=== PATIENT | female | born 1935 | race Caucasian/White ===

== ENCOUNTER 2016-03-27 11:20 | Emergency (ER) | payer OTHER, BC ==
[2016-03-27 11:43] VITALS: BP 158/66; PULSE 75; TEMP 98.8; BMI 45.8
--- NOTE | 2016-03-27 12:43 | PDOC ---
[id number] 4d HEADACHE FOR 2 WEEKS Time Seen by Provider: 03/27/16 12:22 - History of Present Illness Initial Comments: Complaint: Headache History of present illness: Patient complains of pain in the left side of her face, in the area of her left islam, for several days. The pain is vague in description, intermittent, and non-debilitating. She has had recent dental work in the upper left. Review of systems: Denies new visual or focal neurologic symptoms, pain with chewing, numbness or tingling in the face or extremities. Chest pain, shortness of breath, abdominal pain, nausea, vomiting, diarrhea, urinary tract symptoms, vaginal bleeding or discharge. Past medical history: Patient is confined to a wheelchair because of old injuries and Parkinson's. She is cared for by her and her sister. According to her sister, there is been no deterioration in her neurological condition. Social/family history: As above Physical exam: Patient is alert and oriented in no acute distress and cooperative Afebrile, vital signs normal Head atraumatic. PERRLA, fundi benign, ENT clear. Specifically, there is no inflammation of the gingiva. The temporal artery is not enlarged or tender to palpation. The TMJ does not appear to be inflamed or located, and the patient can open her mouth fully Neck supple without bruit or mass or nodes Lungs clear CV regular without murmur or gallop Abdomen benign Neurological: C2 to 12 intact. Generalized weakness but no new focal deficits. Patient is not ambulatory, confined to a wheelchair. Extremities no CCE Skin clear, no rash, adequate turgor and wet mucous membranes Impression: Recurrent headaches, intermittent, mild, likely secondary to tension. Plan: Brain CT performed and negative. Preliminary laboratory evaluation with no significant abnormalities other than a moderately elevated ESR. Discussed the judicious use of Tylenol and stress reduction techniques. To follow up with primary physician and consider neurological evaluation. Discussed the elevated sedimentation rate, and the possibility that this could be related to the headaches and possibly result in permanent visual loss is not addressed in a timely fashion. Sister agrees to facilitate timely follow-up. In no significant pain or other distress upon discharge with her sister to follow-up as directed 03/31/16 08:39 Past History - Past Medical History Allergies/Adverse Reactions: Allergies Allergy/AdvReac Type Severity Reaction Status Date / Time pregabalin [From Lyrica] Allergy Verified 04/04/13 13:02 gabapentin [From Neurontin] AdvReac Unknown Verified 04/04/13 13:02 Home Medications: Ambulatory Orders Metoprolol Tartrate [Lopressor -] 50 mg PO BID 05/26/13 Pantoprazole Sodium 40 mg PO DAILY 05/26/13 Sennosides [Senna -] 2 tab PO HS PRN 05/26/13 Venlafaxine HCl ER [Effexor Xr -] 150 mg PO DAILY 05/26/13 Carbidopa/Levodopa 25/100 [Sinemet 25/100 -] 1 each PO TID 03/27/16 Donepezil HCl [Aricept -] 5 mg PO HS 03/27/16 Anemia: No Asthma: No Cancer: No Cardiac Disorders: No CVA: No COPD: No CHF: No Dementia: No Diabetes: No GI Disorders: Yes (CHRONIC CONSTIPATION, REFLUX) Disorders: No HTN: Yes Hypercholesterolemia: No Liver Disease: No Psychiatric Problems: Yes (DEPRESSION) Seizures: No Thyroid Disease: No Lung CA: Yes Other medical history: PARKINSON'S - Surgical History Abdominal Surgery: No Appendectomy: No Cardiac Surgery: No Cholecystectomy: Yes Lung Surgery: No Neurologic Surgery: No Orthopedic Surgery: Yes (FX RIBS, KATE KNEEAND SHOULDER REPLACEMENTS, LEFT HIP REPLACEMENT) - Immunization History Td Vaccination: Yes - Psycho/Social/Smoking Cessation Hx Anxiety: Yes Suicidal Ideation: No Smoking Status: No Smoking History: Never smoked Years of Tobacco Use: 0 Have you smoked in the past 12 months: No Number of Cigarettes Smoked Daily: 0 If you are a former smoker, when did you quit?: 0 Cigars Per Day: 0 Hx Alcohol Use: No Drug/Substance Use Hx: No Substance Use Type: Alcohol Hx Substance Use Treatment: No *Physical Exam - Vital Signs Last Vital Signs Temp Pulse Resp BP Pulse Ox 98.8 F 75 17 158/66 99 03/27/16 11:32 03/27/16 11:32 03/27/16 11:32 03/27/16 11:32 03/27/16 11:32 ED Treatment Course - LABORATORY CBC & Chemistry Diagram: 03/27/16 13:30 03/27/16 13:30 *DC/Admit/Observation/Transfer Diagnosis at time of Disposition: Tension headache - Discharge Dispostion Disposition: HOME Condition at time of disposition: Good Admit: No - Referrals Referrals: Jarod Ozuna MD [Primary Care Provider] - 3 days - Patient Instructions Printed Discharge Instructions: DI for Headache Additional Instructions: If the headaches persist, discuss with your neurologist next visit Drink more fluids to stay hydrated. Tylenol as necessary.
[2016-03-27 13:49] LABS: BASOPHIL 0.2 % (0-2.0); EOSINOPHIL 1.9 % (0-4.5); MCH 26.6 pg (25.7-33.7); MCHC 32.4 g/dl (32.0-36.0); MEAN CELL VOLUME 82.2 fl (80-96); MEAN PLT VOLUME 7.4 fl (7.5-11.1); NEUTROPHILS 72.3 % (42.8-82.8); PLATELET COUNT 283 K/MM3 (134-434); RDW 13.7 % (11.6-15.6); WHITE BLOOD COUNT 10.1 K/mm3 (4.0-10.0)
[2016-03-27 14:02] LABS: ALBUMIN 3.6 g/dl (3.5-5.0); ALK PHOS 79 U/L (32-92); ANION GAP 8 (8-16); BILIRUBIN,TOTAL 0.9 mg/dl (0.2-1.0); CALCIUM 9.2 mg/dl (8.4-10.2); CO2 25 mmol/L (22-28); CREATININE 0.4 mg/dl (0.6-1.3); GLUCOSE,RANDOM 112 mg/dl (74-106); SGOT/AST 22 U/L (10-42); SGPT/ALT 11 U/L (10-40); TOT PROT 6.6 g/dl (6.4-8.3)
[2016-03-27] MEDS ORDERED: ACETAMINOPHEN 325 MG TABLET (FP) ONE (14:54)
[2016-03-27] MEDS ORDERED: ACETAMINOPHEN 325 MG TABLET (FP) PO ONE (15:00)
== END 2016-03-27 15:15 | disposition home or self-care (01) ==
LOC: FER 11:20
DX: G44.209 Tension-type headache, unspecified, not intractable (principal); K59.00 Constipation, unspecified; K21.9 Gastro-esophageal reflux disease without esophagitis; I10 Essential (primary) hypertension; F32.9 Major depressive disorder, single episode, unspecified; Z85.118 Personal history of other malignant neoplasm of bronchus and lung; G20 Parkinson's disease
CPT/HCPCS: 36415; 70450-TC; 80053; 85025; 85651; 99282-25

== ENCOUNTER 2016-06-24 14:41 | Inpatient (IN) | payer OTHER, BC ==
[2016-06-24 14:55] VITALS: BMI 35.2
--- NOTE | 2016-06-24 15:23 | PDOC ---
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 Family states that at baseline the patient is occasionally able to formulate sentences but today she is completely unable. HPI is limited due to patients clinical condition. History retained from family. <Long Bagley - Last Filed: 06/24/16 16:32> <Jacinda Beverly - Last Filed: 06/28/16 22:41> - General Chief Complaint: Altered Mental Status Stated Complaint: Altered Mental Status Time Seen by Provider: 06/24/16 15:12 Past History <Long Bagley - Last Filed: 06/24/16 16:32> - Past Medical History Anemia: No Asthma: No Cancer: No Cardiac Disorders: No CVA: No COPD: No CHF: No Dementia: Yes (PARKINSONS) Diabetes: No GI Disorders: Yes (CHRONIC CONSTIPATION, REFLUX) Disorders: No HTN: Yes Hypercholesterolemia: No Liver Disease: No Psychiatric Problems: Yes (DEPRESSION) Seizures: No Thyroid Disease: No 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") - Surgical History Abdominal Surgery: No Appendectomy: No Cardiac Surgery: No Cholecystectomy: Yes Lung Surgery: No Neurologic Surgery: No Orthopedic Surgery: Yes (FX RIBS, KATE KNEEAND SHOULDER REPLACEMENTS, LEFT HIP REPLACEMENT) - Immunization History Td Vaccination: Yes - Psycho/Social/Smoking Cessation Hx Anxiety: Yes Suicidal Ideation: No Smoking Status: No Smoking History: Never smoked Years of Tobacco Use: 0 Have you smoked in the past 12 months: No Number of Cigarettes Smoked Daily: 0 If you are a former smoker, when did you quit?: 0 Cigars Per Day: 0 Hx Alcohol Use: No Drug/Substance Use Hx: No Substance Use Type: Alcohol Hx Substance Use Treatment: No <Jacinda Beverly - Last Filed: 06/28/16 22:41> - Past Medical History Allergies/Adverse Reactions: Allergies Allergy/AdvReac Type Severity Reaction Status Date / Time pregabalin [From Lyrica] Allergy Verified 06/24/16 14:47 gabapentin [From Neurontin] AdvReac Unknown Verified 06/24/16 14:47 Home Medications: Ambulatory Orders Metoprolol Tartrate [Lopressor -] 50 mg PO BID 05/26/13 Pantoprazole Sodium 40 mg PO DAILY 05/26/13 Venlafaxine HCl ER [Effexor Xr -] 150 mg PO DAILY 05/26/13 Carbidopa/Levodopa 25/100 [Sinemet 25/100 -] 1 each PO TID 03/27/16 Buspirone HCl [Buspar -] 1 tab PO BID 06/24/16 Prednisone [Deltasone -] 1 tab PO DAILY 06/24/16 Quetiapine Fumarate [Seroquel -] 25 mg PO HS 06/24/16 Review of Systems - Review of Systems Able to Perform ROS?: No <Long Bagley - Last Filed: 06/24/16 16:32> *Physical Exam - Vital Signs Last Vital Signs Temp Pulse Resp BP Pulse Ox 98.1 F 81 19 107/50 95 06/24/16 14:48 06/24/16 14:48 06/24/16 14:48 06/24/16 14:48 06/24/16 14:48 <Long Bagley - Last Filed: 06/24/16 16:32> - Vital Signs Last Vital Signs Temp Pulse Resp BP Pulse Ox 98.1 F 81 19 107/50 95 06/24/16 14:48 06/24/16 14:48 06/24/16 14:48 06/24/16 14:48 06/24/16 14:48 - Physical Exam Comments: GENERAL: Awake, mumbling incoherently. Does not answer questions. HEAD: No signs of trauma EYES: PERRLA, EOMI, sclera anicteric, conjunctiva clear ENT: Auricles normal inspection, hearing grossly normal, nares patent, oropharynx clear without exudates. Dry mucosa NECK: Normal ROM, supple, no lymphadenopathy, JVD, or masses LUNGS: Breath sounds equal, clear to auscultation bilaterally. No wheezes, and no crackles HEART: Regular rate and rhythm, normal S1 and S2, no murmurs, rubs or gallops ABDOMEN: Soft, nontender, normoactive bowel sounds. No guarding, no rebound. No masses EXTREMITIES: Normal range of motion, no edema. No clubbing or cyanosis. No cords, erythema, or tenderness NEUROLOGICAL: CLimited by AMS. SKIN: Warm, Dry, normal turgor, no rashes or lesions noted. <Jacinda Beverly - Last Filed: 06/28/16 22:41> Heart Score/ECG Review - ECG Impressions Comment:: EKG read 15:57- afib with RVR 168 bpm <Jacinda Beverly - Last Filed: 06/28/16 22:41> ED Treatment Course - LABORATORY CBC & Chemistry Diagram: 06/28/16 07:45 06/28/16 07:45 <Jacinda Beverly - Last Filed: 06/28/16 22:41> Medical Decision Making - Medical Decision Making 06/24/16 16:[address] Tijerina. Presented with AMS for past few weeks, progressively worsening. She is awake, but incoherent. Protecting her airway. No gross neuro deficits, but unable to cooperate with full exam. AMS workup is pending, IV access was difficult, but was ultimately obtained. Awaiting labs, UA, CTH, CXR for further evaluation. <Jacinda Beverly - Last Filed: 06/28/16 22:41> *DC/Admit/Observation/Transfer - Attestations Scribe Attestion: 06/24/16 15:45 Documentation prepared by Long Bagley, acting as medical delivery technician for Jacinda Beverly MD. <Long Bagley - Last Filed: 06/24/16 16:32> <Jacinda Beverly - Last Filed: 06/28/16 22:41> Diagnosis at time of Disposition: Altered mental status Qualifiers: Altered mental status type: unspecified Qualified Code(s): R41.82 - Altered mental status, unspecified Atrial fibrillation Qualifiers: Atrial fibrillation type: unspecified Qualified Code(s): I48.91 - Unspecified atrial fibrillation ICH (intracerebral hemorrhage) Qualifiers: Intracerebral hemorrhage etiology: nontraumatic Cerebral hemorrhage location: unspecified cerebral location Laterality: unspecified laterality Qualified Code( s): I61.9 - Nontraumatic intracerebral hemorrhage, unspecified UTI (urinary tract infection) Qualifiers: Urinary tract infection type: site unspecified Hematuria presence: without hematuria Qualified Code(s): N39.0 - Urinary tract infection, site not specified - Discharge Dispostion Condition at time of disposition: Guarded - Referrals
[2016-06-24] MEDS ORDERED: dilTIAZem HCL 50 MG/10 ML - 10 ML VIAL IVPUSH ONE ×3 (16:30→17:39)
[2016-06-24] MEDS ORDERED: SODIUM CHLORIDE 1,000 ML IV STA (16:30)
[2016-06-24] MEDS ORDERED: dilTIAZem HCL 125 MG/25 ML - 25 ML VIAL ONE ×2 (16:44→17:54)
[2016-06-24] MEDS ORDERED: METOPROLOL TARTRATE 5 MG/5 ML VIAL IVPUSH ONE (17:15)
[2016-06-24] MEDS ORDERED: METOPROLOL TARTRATE 5 MG/5 ML VIAL ONE (17:17)
[2016-06-24] MEDS ORDERED: SODIUM CHLORIDE 500 ML IV STA ×2 (17:39→19:06)
[2016-06-24 17:52] LABS: MCH 29.2 pg (25.7-33.7); MCHC 34.1 g/dl (32.0-36.0); MEAN CELL VOLUME 85.6 fl (80-96); MEAN PLT VOLUME 9.6 fl (7.5-11.1); PLATELET COUNT 125 K/MM3 (134-434); RDW 18.4 % (11.6-15.6); WHITE BLOOD COUNT 20.5 K/mm3 (4.0-10.0)
[2016-06-24 18:03] LABS: URINE APPEARANCE CLOUDY; URINE COLOR AMBER; URINE GLUCOSE (UA) NEGATIVE (NEGATIVE); URINE KETONE TRACE (NEGATIVE); URINE NITRITE NEGATIVE (NEGATIVE); URINE UROBILINOGEN 4.0 E.U/dl E.U./dl (0.2-1.0)
[2016-06-24 18:07] LABS: INR 1.05 (0.82-1.09); PROTHROMBIN TIME (PATIENT) 11.6 SEC (9.98-11.88)
[2016-06-24 18:17] LABS: URINE BLOOD 2+ (NEGATIVE); URINE PROTEIN 2+ (NEGATIVE)
[2016-06-24 18:18] LABS: URINE LEUK ESTERASE 2+ (NEGATIVE)
[2016-06-24 18:24] LABS: TROPONIN I 0.07 ng/ml (0.00-0.05)
[2016-06-24 18:31] LABS: ALBUMIN 3.4 g/dl (3.4-5.0); BILIRUBIN,TOTAL 2.6 mg/dL (0.2-1.0); CREATININE 1.5 mg/dL (0.55-1.02); TOT PROT 6.2 g/dl (6.4-8.2)
[2016-06-24] MEDS ORDERED: PIPERACILLIN/TAZOB 3.375 GM/50 ML PRE-DOCKED IVPB ONE (19:02)
[2016-06-24] MEDS ORDERED: PIPERACILLIN/TAZOB 3.375 GM 50 ML IVPB ONE (19:23)
[2016-06-24] MEDS ORDERED: levETIRAcetam 500 MG/5 ML INJECTION VIAL IVPB ONE ×2 (21:59→22:11)
--- NOTE | 2016-06-24 22:10 | PDOC ---
*Physical Exam - Vital Signs Last Vital Signs Temp Pulse Resp BP Pulse Ox 98.5 F 93 H 18 120/92 99 06/24/16 21:31 06/24/16 21:31 06/24/16 21:31 06/24/16 21:31 06/24/16 21:31 <Santhosh Tijerina - Last Filed: 06/24/16 22:04> - Vital Signs Last Vital Signs Temp Pulse Resp BP Pulse Ox 98.5 F 84 18 124/99 99 06/24/16 21:31 06/24/16 22:08 06/24/16 22:08 06/24/16 22:08 06/24/16 22:08 <Ashwini Weinstein - Last Filed: 06/24/16 22:18> ED Treatment Course - LABORATORY CBC & Chemistry Diagram: 06/24/16 16:15 06/24/16 16:15 - ADDITIONAL ORDERS Additional order review: Laboratory Results 06/24/16 06/24/16 06/24/16 20:00 16:15 16:15 INR Sodium Potassium Chloride Carbon Dioxide Anion Gap BUN Creatinine Creat Clearance w eGFR Random Glucose Lactic Acid 3.643 H* Calcium Total Bilirubin AST ALT Alkaline Phosphatase Creatine Kinase Troponin I Total Protein Albumin TSH 2.43 D Urine Color [place] Urine Appearance Cloudy Urine pH 5.0 Ur Specific [place] 1.019 Urine Protein 2+ H Urine Glucose (UA) Negative Urine Ketones Trace H Urine Blood 2+ H Urine Nitrite Negative Urine Bilirubin 2.0 Urine Urobilinogen 4.0 e.u/dl H Ur Leukocyte Esterase 2+ H 06/24/16 06/24/16 06/24/16 16:15 16:15 16:15 INR 1.05 Sodium 140 Potassium 3.6 Chloride 99 Carbon Dioxide 27 Anion Gap 14 BUN 29 H D Creatinine 1.5 H D Creat Clearance w eGFR 33.41 Random Glucose 158 H D Lactic Acid 3.814 H* Calcium 9.0 Total Bilirubin 2.6 H D AST 13 L D ALT 24 Alkaline Phosphatase 76 Creatine Kinase 67 Troponin I 0.07 H Total Protein 6.2 L Albumin 3.4 TSH Urine Color Urine Appearance Urine pH Ur Specific [place] Urine Protein Urine Glucose (UA) Urine Ketones Urine Blood Urine Nitrite Urine Bilirubin Urine Urobilinogen Ur Leukocyte Esterase 06/24/16 16:15 RBC 4.52 MCV 85.6 MCHC 34.1 RDW 18.4 H D MPV 9.6 D Neutrophils % Y Lymphocytes % Y - Medications Given in the ED: ED Medications Discontinued Medications Generic Name Dose Route Start Last Admin Trade Name Yemi PRN Reason Stop Dose Admin Diltiazem HCl 10 mg 06/24/16 16:30 06/24/16 16:45 Cardizem Injection - IVPUSH 06/24/16 16:31 10 mg ONCE ONE Administration Diltiazem HCl 10 mg 06/24/16 16:47 06/24/16 16:55 Cardizem Injection - IVPUSH 06/24/16 16:48 10 mg ONCE ONE Administration Diltiazem HCl 10 mg 06/24/16 17:39 06/24/16 19:11 Cardizem Injection - IVPUSH 06/24/16 17:40 Not Given ONCE ONE Sodium Chloride 1,000 mls @ 1,000 mls/hr 06/24/16 16:30 06/24/16 16:30 Normal Saline - IV 06/24/16 17:29 1,000 mls/hr ASDIR STA Administration Sodium Chloride 500 mls @ 500 mls/hr 06/24/16 17:39 06/24/16 17:50 Normal Saline - IV 06/24/16 18:38 500 mls/hr ASDIR STA Administration Sodium Chloride 500 mls @ 500 mls/hr 06/24/16 19:06 06/24/16 19:30 Normal Saline - IV 06/24/16 20:05 500 mls/hr ASDIR STA Administration Metoprolol Tartrate 5 mg 06/24/16 17:15 06/24/16 17:18 Lopressor Injection - IVPUSH 06/24/16 17:16 5 mg ONCE ONE Administration Piperacillin Sod/Tazobactam Sod 3.375 gm 06/24/16 19:02 06/24/16 19:25 Zosyn 3.375gm Ivpb (Pre-Docked) IVPB 06/24/16 19:03 3.375 gm ONCE ONE Administration Protocol <Santhosh Tijerina - Last Filed: 06/24/16 22:04> - LABORATORY CBC & Chemistry Diagram: 06/24/16 16:15 06/24/16 16:15 - ADDITIONAL ORDERS Additional order review: Laboratory Results 06/24/16 06/24/16 06/24/16 20:00 16:15 16:15 INR Sodium Potassium Chloride Carbon Dioxide Anion Gap BUN Creatinine Creat Clearance w eGFR Random Glucose Lactic Acid 3.643 H* Calcium Total Bilirubin AST ALT Alkaline Phosphatase Creatine Kinase Troponin I Total Protein Albumin TSH 2.43 D Urine Color [place] Urine Appearance Cloudy Urine pH 5.0 Ur Specific [place] 1.019 Urine Protein 2+ H Urine Glucose (UA) Negative Urine Ketones Trace H Urine Blood 2+ H Urine Nitrite Negative Urine Bilirubin 2.0 Urine Urobilinogen 4.0 e.u/dl H Ur Leukocyte Esterase 2+ H 06/24/16 06/24/16 06/24/16 16:15 16:15 16:15 INR 1.05 Sodium 140 Potassium 3.6 Chloride 99 Carbon Dioxide 27 Anion Gap 14 BUN 29 H D Creatinine 1.5 H D Creat Clearance w eGFR 33.41 Random Glucose 158 H D Lactic Acid 3.814 H* Calcium 9.0 Total Bilirubin 2.6 H D AST 13 L D ALT 24 Alkaline Phosphatase 76 Creatine Kinase 67 Troponin I 0.07 H Total Protein 6.2 L Albumin 3.4 TSH Urine Color Urine Appearance Urine pH Ur Specific [place] Urine Protein Urine Glucose (UA) Urine Ketones Urine Blood Urine Nitrite Urine Bilirubin Urine Urobilinogen Ur Leukocyte Esterase 06/24/16 16:15 RBC 4.52 MCV 85.6 MCHC 34.1 RDW 18.4 H D MPV 9.6 D Neutrophils % Y Lymphocytes % Y - Medications Given in the ED: ED Medications Discontinued Medications Generic Name Dose Route Start Last Admin Trade Name Freq PRN Reason Stop Dose Admin Diltiazem HCl 10 mg 06/24/16 16:30 06/24/16 16:45 Cardizem Injection - IVPUSH 06/24/16 16:31 10 mg ONCE ONE Administration Diltiazem HCl 10 mg 06/24/16 16:47 06/24/16 16:55 Cardizem Injection - IVPUSH 06/24/16 16:48 10 mg ONCE ONE Administration Diltiazem HCl 10 mg 06/24/16 17:39 06/24/16 19:11 Cardizem Injection - IVPUSH 06/24/16 17:40 Not Given ONCE ONE Sodium Chloride 1,000 mls @ 1,000 mls/hr 06/24/16 16:30 06/24/16 16:30 Normal Saline - IV 06/24/16 17:29 1,000 mls/hr ASDIR STA Administration Sodium Chloride 500 mls @ 500 mls/hr 06/24/16 17:39 06/24/16 17:50 Normal Saline - IV 06/24/16 18:38 500 mls/hr ASDIR STA Administration Sodium Chloride 500 mls @ 500 mls/hr 06/24/16 19:06 06/24/16 19:30 Normal Saline - IV 06/24/16 20:05 500 mls/hr ASDIR STA Administration Metoprolol Tartrate 5 mg 06/24/16 17:15 06/24/16 17:18 Lopressor Injection - IVPUSH 06/24/16 17:16 5 mg ONCE ONE Administration Piperacillin Sod/Tazobactam Sod 3.375 gm 06/24/16 19:02 06/24/16 19:25 Zosyn 3.375gm Ivpb (Pre-Docked) IVPB 06/24/16 19:03 3.375 gm ONCE ONE Administration Protocol <Ashwini Weinstein - Last Filed: 06/24/16 22:18> Medical Decision Making - Medical Decision Making 06/24/16 22:04 Sign-out received from outgoing Emergency Physician Dr. Beverly Pt interviewed and examined Ancillary studies reviewed Case discussed in detail with oncoming Emergency Physician including history, physical exam and ancillary studies. CBC, BMP 06/24/16 16:15 06/24/16 16:15 CMP Sodium 140 mmol/L (136-145) 06/24/16 16:15 Potassium 3.6 mmol/L (3.5-5.1) 06/24/16 16:15 Chloride 99 mmol/L (98-107) 06/24/16 16:15 Carbon Dioxide 27 mmol/L (21-32) 06/24/16 16:15 Anion Gap 14 (8-16) 06/24/16 16:15 BUN 29 mg/dL (7-18) H D 06/24/16 16:15 Creatinine 1.5 mg/dL (0.55-1.02) H D 06/24/16 16:15 Creat Clearance w eGFR 33.41 (>60) 06/24/16 16:15 Random Glucose 158 mg/dL (74-106) H D 06/24/16 16:15 Lactic Acid 3.643 mmol/L (0.4-2.0) H* 06/24/16 20:00 Calcium 9.0 mg/dL (8.5-10.1) 06/24/16 16:15 Total Bilirubin 2.6 mg/dL (0.2-1.0) H D 06/24/16 16:15 AST 13 U/L (15-37) L D 06/24/16 16:15 ALT 24 U/L (12-78) 06/24/16 16:15 Alkaline Phosphatase 76 U/L (45-117) 06/24/16 16:15 Creatine Kinase 67 IU/L (26-192) 06/24/16 16:15 Troponin I 0.07 ng/ml (0.00-0.05) H 06/24/16 16:15 Total Protein 6.2 g/dl (6.4-8.2) L 06/24/16 16:15 Albumin 3.4 g/dl (3.4-5.0) 06/24/16 16:15 TSH 2.43 uIU/ml (0.358-3.74) D 06/24/16 16:15 Urine Test Results Urine Color [place] 06/24/16 16:15 Urine Appearance Cloudy 06/24/16 16:15 Urine pH 5.0 (5.0-8.0) 06/24/16 16:15 Ur Specific [place] 1.019 (1.001-1.035) 06/24/16 16:15 Urine Protein 2+ (NEGATIVE) H 06/24/16 16:15 Urine Glucose (UA) Negative (NEGATIVE) 06/24/16 16:15 Urine Ketones Trace (NEGATIVE) H 06/24/16 16:15 Urine Blood 2+ (NEGATIVE) H 06/24/16 16:15 Urine Nitrite Negative (NEGATIVE) 06/24/16 16:15 Urine Bilirubin 2.0 (NEGATIVE) 06/24/16 16:15 Ur Leukocyte Esterase 2+ (NEGATIVE) H 06/24/16 16:15 When I had received signout at ~ 5pm, the patient continued to have persistent afib RVR. A dose of IV lopressor was given with minimal effects. Another dose of IV diltiazem was given and the heart rate improved < 100. The pt was given IVF when noted to be hypotensive to 80s to 90s systolic, likely 2/2 medications. Labs reviewed. Elevated WBC with acute renal insufficiency and UTI. Zosyn ordered. Troponin is likely demand ischemia. Head CT reviewed and demonstrated a small subacute/acute hemorrhage in the right temporal lobe. Case was discussed with Dr. Vinson. She will follow as inpatient. Case discussed with Dr. Jonah Gaston (neurosurgery). Recommends IV keppra and control systolics to less than 160s. This was discussed with patient's sister, Romeo (her HCP). She is aware of these findings and states that if the patient needed brain surgery, she would not want that for her. At this time, any other further intervention will be discussed case by case. States that the patient has not been formally diagnosed with afib and does not take anticoagulants. Case discussed with ICU ACCOUNT EXECUTIVE SALES REPRESENTATIVE Bianka who accepts the case. Case discussed with Dr. Rivera who accepts the patient to the ICU. <Santhosh Tijerina - Last Filed: 06/24/16 22:04> - Critical Care Time Total Critical Care Time (minutes): 60 Critical Care Statement: The care of this patient involved high complexity decision making to prevent further life threatening deterioration of the patient 's condition and/or to evalute & treat vital organ system(s) failure or risk of failure. - Medical Decision Making 06/24/16 22:14 Health Care Proxy: Rashida Green Relationship to Patient: Sister Cell <Ashwini Weinstein - Last Filed: 06/24/16 22:18> *DC/Admit/Observation/Transfer - Discharge Dispostion Admit: Yes <Santhosh Tijerina - Last Filed: 06/24/16 22:04> - Attestations Scribe Attestion: 06/24/16 22:14 Documentation prepared by Ashwini Weinstein, acting as medical stenographer for Santhosh Tijerina MD. <Ashwini Weinstein - Last Filed: 06/24/16 22:18> Diagnosis at time of Disposition: Altered mental status Qualifiers: Altered mental status type: unspecified Qualified Code(s): R41.82 - Altered mental status, unspecified Atrial fibrillation Qualifiers: Atrial fibrillation type: unspecified Qualified Code(s): I48.91 - Unspecified atrial fibrillation ICH (intracerebral hemorrhage) Qualifiers: Intracerebral hemorrhage etiology: nontraumatic Cerebral hemorrhage location: unspecified cerebral location UTI (urinary tract infection) Qualifiers: Urinary tract infection type: site unspecified Hematuria presence: without hematuria Qualified Code(s): N39.0 - Urinary tract infection, site not specified - Discharge Dispostion Condition at time of disposition: Guarded - Referrals Referrals: Jarod Ozuna MD [Primary Care Provider] - - Patient Instructions - Post Discharge Activity
[2016-06-25 00:14] LABS: URINE BACTERIA MODERATE /hpf (NONE SEEN); URINE HYALINE CAST 12 /lpf; URINE MUCUS RARE; URINE RBC 29 /hpf (0-3); URINE WBC 694 /hpf (3-5)
[2016-06-25] MEDS ORDERED: SODIUM CHLORIDE 1,000 ML IV STA (01:19)
[2016-06-25] MEDS ORDERED: dilTIAZem HCL 50 MG/10 ML - 10 ML VIAL IVPUSH ONE (01:36)
--- NOTE | 2016-06-25 01:43 | CONSULT ---
Consult Consult Specialty:: Pulm/CCM Reason for Consultation:: AMS - History of Present Illness Chief Complaint: AMS History of Present Illness: The patient is a 80 year old female, accompanied by family, with pmh of parkinsons, hypertension, bilateral hip replacements and left knee replacement , who presents to the ED with altered mental status x 1 day. Family states that pt normally is able to speak phrases but now is non verbal. CT head shows possible Rt temporal acute/subacute hemorrhage. CXR shows BENTON yordy mass that has increased in size. Notable labs WBC 20.5, lact 3.8, creat 1.5 (b/l 0.4) and trop 0.07. In the ED went into A-fib with RVR to 150's. Given multiple doses of Diltiazem and Lopressor. BP dropped to 90's/60's. 1.5L fluid bolus given. She was arguello cultured and started on Zosyn for WBC 694 and +leuks in UA. Neurology and neuro surgery consulted and recommended observation and keppraIV for high risk of seizures re location of bleed. She was transferred to ICU for further management. In ICU received in A-fib with RVR up to 170's, BP 107/60, T 98.1F. Diltiazem 15mg IVP given with minimal results. Amio 150mg bolus given. HR back to NSR 60' s. Zosyn and Keppra continued. 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 Cardio/Vascular: Yes: HTN, Other (Unclear if A-fib) Pulmonary: Yes: Other (Lung mass) Gastrointestinal: Yes: GERD Heme/Onc: Yes: Other (Lung Mass) Psych: Yes: Depression Musculoskeletal: Yes: Other (Knee and hip replacements) - Past Surgical History Past Surgical History: Yes: Joint Replacement - Alcohol/Substance Use Hx Alcohol Use: No - Smoking History Smoking history: Never smoked Have you smoked in the past 12 months: No Aproximately how many cigarettes per day: 0 If you are a former smoker, when did you quit?: 0 - Social History Usual Living Arrangement: Other Home Medications - Allergies Allergies/Adverse Reactions: Allergies Allergy/AdvReac Type Severity Reaction Status Date / Time pregabalin [From Lyrica] Allergy Verified 06/24/16 14:47 gabapentin [From Neurontin] AdvReac Unknown Verified 06/24/16 14:47 - Home Medications Home Medications: Ambulatory Orders Metoprolol Tartrate [Lopressor -] 50 mg PO BID 05/26/13 Pantoprazole Sodium 40 mg PO DAILY 05/26/13 Venlafaxine HCl ER [Effexor Xr -] 150 mg PO DAILY 05/26/13 Carbidopa/Levodopa 25/100 [Sinemet 25/100 -] 1 each PO TID 03/27/16 Buspirone HCl [Buspar -] 1 tab PO BID 06/24/16 Prednisone [Deltasone -] 1 tab PO DAILY 06/24/16 Quetiapine Fumarate [Seroquel -] 25 mg PO HS 06/24/16 Family Disease History - Family Disease History Family History: Unable to Obtain Review of Systems Unable to obtain ROS, reason: Verbally unresponsive Physical Exam Vital Signs: Vital Signs Temperature 98.4 F 06/24/16 22:40 Pulse Rate 78 06/25/16 00:05 Respiratory Rate 18 06/25/16 00:05 Blood Pressure 131/93 06/25/16 00:05 O2 Sat by Pulse Oximetry (%) 98 06/25/16 00:05 Constitutional: Yes: No Distress, Obese Eyes: Yes: Conjunctiva Clear, PERRL HENT: Yes: Atraumatic, Normocephalic Neck: Yes: Supple Cardiovascular: Yes: Tachycardia (A fib with RVR) Respiratory: Yes: CTA Bilaterally, On Nasal O2 Gastrointestinal: Yes: Normal Bowel Sounds, Soft ...Rectal Exam: Yes: Deferred Renal/: Yes: Incontinence Musculoskeletal: Yes: Joint Stiffness (Multiple surgical scars; decreased ROM on BLE) Extremities: Yes: Cool Edema: LUE: 1+, RUE: 1+, LLE: 2+, RLE: 2+ Peripheral Pulses WNL: Yes Neurological: Yes: Unresponsive (no verbal response, moaning, resisting) ...Motor Strength: WNL, LUE, RUE Psychiatric: Yes: Other (no verbal response) Labs: CMP Sodium 140 mmol/L (136-145) 06/24/16 16:15 Potassium 3.6 mmol/L (3.5-5.1) 06/24/16 16:15 Chloride 99 mmol/L (98-107) 06/24/16 16:15 Carbon Dioxide 27 mmol/L (21-32) 06/24/16 16:15 Anion Gap 14 (8-16) 06/24/16 16:15 BUN 29 mg/dL (7-18) H D 06/24/16 16:15 Creatinine 1.5 mg/dL (0.55-1.02) H D 06/24/16 16:15 Creat Clearance w eGFR 33.41 (>60) 06/24/16 16:15 Random Glucose 158 mg/dL (74-106) H D 06/24/16 16:15 Lactic Acid 3.643 mmol/L (0.4-2.0) H* 06/24/16 20:00 Calcium 9.0 mg/dL (8.5-10.1) 06/24/16 16:15 Total Bilirubin 2.6 mg/dL (0.2-1.0) H D 06/24/16 16:15 AST 13 U/L (15-37) L D 06/24/16 16:15 ALT 24 U/L (12-78) 06/24/16 16:15 Alkaline Phosphatase 76 U/L (45-117) 06/24/16 16:15 Creatine Kinase 67 IU/L (26-192) 06/24/16 16:15 Troponin I 0.07 ng/ml (0.00-0.05) H 06/24/16 16:15 Total Protein 6.2 g/dl (6.4-8.2) L 06/24/16 16:15 Albumin 3.4 g/dl (3.4-5.0) 06/24/16 16:15 TSH 2.43 uIU/ml (0.358-3.74) D 06/24/16 16:15 CBC WBC 20.5 K/mm3 (4.0-10.0) H D 06/24/16 16:15 RBC 4.52 M/mm3 (3.60-5.2) 06/24/16 16:15 Hgb 13.2 GM/dL (10.7-15.3) 06/24/16 16:15 Hct 38.7 % (32.4-45.2) 06/24/16 16:15 MCV 85.6 fl (80-96) 06/24/16 16:15 MCHC 34.1 g/dl (32.0-36.0) 06/24/16 16:15 RDW 18.4 % (11.6-15.6) H D 06/24/16 16:15 Plt Count 125 K/MM3 (134-434) L D 06/24/16 16:15 MPV 9.6 fl (7.5-11.1) D 06/24/16 16:15 Neutrophils % 84.0 % (42.8-82.8) H 06/24/16 16:15 Lymphocytes % 10.0 % (8-40) D 06/24/16 16:15 Monocytes % 6.0 % (3.8-10.2) 06/24/16 16:15 Current Medications Generic Name Dose Route Start Last Admin Trade Name Freq PRN Reason Stop Dose Admin Chlorhexidine Gluconate 1 applic 06/25/16 22:00 Hibiclens For Decolonization - TP HS ERIN Heparin Sodium (Porcine) 5,000 unit 06/25/16 01:30 Heparin - SQ Q8H-IV ERIN Mupirocin 1 applic 06/25/16 10:00 Bactroban Ointment (For Decolonization) - NS 06/30/16 09:59 BID ERIN Pantoprazole Sodium 40 mg 06/25/16 10:00 Protonix - NR DAILY ERIN Active Medications Chlorhexidine Gluconate (Hibiclens For Decolonization -) 1 applic TP HS ERIN Heparin Sodium (Porcine) (Heparin -) 5,000 unit SQ Q8H-IV ERIN Last Admin: 06/25/16 02:23 Dose: 5,000 unit Amiodarone HCl 450 mg/ (Dextrose) 250 mls @ 16.66 mls/hr IVPB TITR ERIN; 0.5 MG/ MIN PRN Reason: Protocol Last Admin: 06/25/16 03:19 Dose: Not Given Pantoprazole Sodium (Protonix 40mg Ivpb (Pre-Docked)) 100 mls @ 200 mls/hr IVPB ONCE ONE Stop: 06/25/16 03:50 Last Admin: 06/25/16 03:24 Dose: 200 mls/hr Levetiracetam (Keppra Injection -) 750 mg IVPB BID ERIN Mupirocin (Bactroban Ointment (For Decolonization) -) 1 applic NS BID ERIN Stop: 06/30/16 09:59 Imaging - Results Chest X-ray: Report Reviewed (BENT[place] mass increased in size, now 9.8 cm (5.4)) Cat Scan: Report Reviewed (Head CT with rt temporal lobe 2cm attenuation c/w acute/subacute hemorrhage. No gross mass lesion or acute infarct identified) Problem List - Problems (1) Altered mental status Code(s): R41.82 - ALTERED MENTAL STATUS, UNSPECIFIED Qualifiers: Altered mental status type: unspecified Qualified Code(s): R41.82 - Altered mental status, unspecified (2) Atrial fibrillation Code(s): I48.91 - UNSPECIFIED ATRIAL FIBRILLATION Qualifiers: Atrial fibrillation type: unspecified Qualified Code(s): I48.91 - Unspecified atrial fibrillation (3) ICH (intracerebral hemorrhage) Code(s): I61.9 - NONTRAUMATIC INTRACEREBRAL HEMORRHAGE, UNSPECIFIED Qualifiers : Intracerebral hemorrhage etiology: nontraumatic Cerebral hemorrhage location: unspecified cerebral location (4) UTI (urinary tract infection) Code(s): N39.0 - URINARY TRACT INFECTION, SITE NOT SPECIFIED Qualifiers: Urinary tract infection type: site unspecified Hematuria presence: without hematuria Qualified Code(s): N39.0 - Urinary tract infection, site not specified Assessment/Plan The patient is a 80 year old female, accompanied by family, with pmh of parkinsons, hypertension, bilateral hip replacements and left knee replacement , who presents to the ED with urosepsis. Has history of UTI with ESBL E-coli in 07/10. Found to have a possible rt temporal acute/subacute hemorrhage of unclear etiology re no evidence of trauma. No mass effect or acute infarct noted on CT. Also with A-fib with RVR now rate controlled with amio. ID: Sepsis e/b AMS, lactate 3.8, WBC 20, likely source urine; hx ESBL E-coli -ID consult -Continue Zosyn IV -Tailor antibiotics to cxl -trend lactate -trend WBC Neuro: AMS in setting of sepsis, unknown effect and etiology of rt temporal bleed -Neuro consult appreciate recs -Keppra 750mg q12 -neuro checks -f/u with family re baseline CV: Sepsis, A-fib with RVR rate controlled with amio bolus, demand ischemia trop 0.07 -HD monitor -Fluid bolus as needed -Jamil if needed for MAP>60 -Continue amio load as needed for HR rate control -Trend trop -ECG -TTE RACHEAL: in setting of sepsis -Monitor BMP and UOP -Urine studies -Fluid bolus -Renal dose meds Pulm: BENTON lung mass, resp status stabe -O2 support for O2 sat>95 -Aspiration precaution GI: NPO for now re AMS Proph: Hep SQ/ PPI
[2016-06-25] MEDS: HEPARIN NA (PORCINE) 5,000 UNITS/ML 1ML VIAL SQ SCH ×4 (02:23→18:34)
[2016-06-25] MEDS ORDERED: AMIODARONE HCL 150 MG/3 ML VIAL IVPB ONE (02:35)
[2016-06-25] MEDS ORDERED: AMIODARONE HCL INJECTION 150 MG in DEXTROSE 5%-WATER - 97 ML IVPB ONE (02:36)
[2016-06-25] MEDS ORDERED: AMIODARONE HCL 150 MG/3 ML VIAL ONE ×2 (02:38→11:39)
[2016-06-25] MEDS ORDERED: PIPERACILLIN/TAZOB 3.375 GM/50 ML PRE-DOCKED IVPB ONE (02:40)
[2016-06-25] MEDS: AMIODARONE HCL INJECTION 450 MG in DEXTROSE 5%-WATER - 241 ML IVPB SCH ×3 (03:19→12:36)
[2016-06-25] MEDS ORDERED: PANTOPRAZOLE SODIUM 100 ML IVPB ONE (03:21)
[2016-06-25 03:31] LABS: MCH 28.7 pg (25.7-33.7); MCHC 33.7 g/dl (32.0-36.0); MEAN PLT VOLUME 8.9 fl (7.5-11.1); PLATELET COUNT 104 K/MM3 (134-434); RDW 18.1 % (11.6-15.6); WHITE BLOOD COUNT 15.4 K/mm3 (4.0-10.0)
[2016-06-25 03:54] LABS: ALBUMIN 2.3 g/dl (3.4-5.0); ANION GAP 11 (8-16); BILIRUBIN,TOTAL 1.8 mg/dL (0.2-1.0); CALCIUM 7.3 mg/dL (8.5-10.1); CO2 25 mmol/L (21-32); CREATININE 0.9 mg/dL (0.55-1.02); GLUCOSE,RANDOM 108 mg/dL (74-106); SGOT/AST 13 U/L (15-37); SGPT/ALT 7 U/L (12-78)
[2016-06-25 03:57] LABS: ALK PHOS 53 U/L (45-117); TOT PROT 4.3 g/dl (6.4-8.2); TROPONIN I 0.07 ng/ml (0.00-0.05)
[2016-06-25] MEDS: KCL 10 MEQ IVPB 100 ML IVPB SCH ×6 (04:23→21:00)
--- NOTE | 2016-06-25 09:36 | PN ---
Progress Note (short form) - Note Progress Note: NEUROSURGERY CONSULT DICTATED Chart reviewed Care d/w Dr Tijerina yesterday evening H/o Parkinsons, hypertension, bilateral hip replacements/left knee replacement , found with altered mental status x 1 day. Family reported pt has not spoken x [address] head shows possible Rt temporal acute/subacute hemorrhage. CXR shows BENT[place] mass. Found to be in A-fib PE: AF, VSS HEENT- NC/AT; Neck- supple; Cor- Irreg; Chest- decreased BS at bases; Abd- obese , benign; Ext- mild LE edema B NEURO- Eyes closed, arousable;occasional follows simple commands CN- PEERL; face symm; Motor- 4/5 B UE except L DF 2-3, increased tone B UE > LE ; Sensation- unable to fully assess; DTR- hyporefelxic WBC 20.5 now 15.4; INR 1.05, Ptt 28.1; lactic acid 3.814 initially; urine wbc 694 Blood and urine culture pending Head CT- (): moderate atrophy and periventricular small vessel dz Head CT -(06-24-2016): acute-subacute R temporal periventricular ICH 1.5 x 1.8 cm Acute-subacute (5-7 days out) embolic hemorrhagic stroke in face of AFib; UTI/ urosepsis No neurosurgical intervention indicated Cont Keppra for sz prophylaxis Hold AC/NSAIDS F/U non-contrast Head CT tomorrow am to ascertain stability Treat underlying ID issues and cardiac rhythm abnormality
[2016-06-25] MEDS ORDERED: PANTOPRAZOLE 40 MG TABLET (FP) NR SCH (10:00)
[2016-06-25] MEDS ORDERED: levETIRAcetam 500 MG/5 ML INJECTION VIAL IVPB SCH (10:00)
--- NOTE | 2016-06-25 10:50 | PN ---
Progress Note (short form) - Note Progress Note: ID consult dictated imp/reccd 80 year old female with Parkinsons disease, lung mass, admitted with change in MS- at baseline occasionally speaks, yesterday was not talking brought to ED found to have elevated lactic acid, WBC 20K, head ct with bleed right temporal lobe, cxray with enlarging lung mass asked to see for UTI started on keppra for seizure prophylaxis suggest continuing zosyn at this time for UTI, started last night, wbc decreasing, no fevers, hemodynamically stable would like to avoid carbapenems if possible given recent bleed and risk of seizures history of ESBL ECOLI UTI- contact isolation lung mass- biopsy positive melanoma parkinsons diseease/dementia Problem List - Problems (1) ICH (intracerebral hemorrhage) Code(s): I61.9 - NONTRAUMATIC INTRACEREBRAL HEMORRHAGE, UNSPECIFIED Qualifiers : Intracerebral hemorrhage etiology: nontraumatic Cerebral hemorrhage location: unspecified cerebral location (2) UTI (urinary tract infection) Code(s): N39.0 - URINARY TRACT INFECTION, SITE NOT SPECIFIED Qualifiers: Urinary tract infection type: site unspecified Hematuria presence: without hematuria Qualified Code(s): N39.0 - Urinary tract infection, site not specified (3) Lung mass Code(s): R91.8 - OTHER NONSPECIFIC ABNORMAL FINDING OF LUNG FIELD
[2016-06-25] MEDS: MUPIROCIN 2% TOPICAL OINTMENT FOR DECOLONIZATION NS SCH ×2 (11:21→22:00)
[2016-06-25] MEDS: PIPERACILLIN/TAZOB 3.375 GM/50 ML PRE-DOCKED IVPB SCH ×2 (11:24→18:35)
[2016-06-25] MEDS: levETIRAcetam 500 MG/5 ML INJECTION VIAL IVPB SCH ×2 (11:25→21:33)
--- NOTE | 2016-06-25 12:26 | EKG ---
Test Reason : Blood Pressure : / mmHG Vent. Rate : 168 BPM Atrial Rate : 182 BPM P-R Int : 000 ms QRS Dur : 096 ms QT Int : 264 ms P-R-T Axes : 000 -06 189 degrees QTc Int : 441 ms ATRIAL FIBRILLATION WITH RAPID VENTRICULAR RESPONSE WITH PREMATURE VENTRICULAR OR ABERRANTLY CONDUCTED COMPLEXES MARKED ST ABNORMALITY, POSSIBLE INFEROLATERAL SUBENDOCARDIAL INJURY ABNORMAL ECG WHEN COMPARED WITH ECG OF 04-APR-2013 12:49, ATRIAL FIBRILLATION HAS REPLACED SINUS RHYTHM VENT. RATE HAS INCREASED BY [address] NOW DEPRESSED IN INFERIOR LEADS ST NOW DEPRESSED IN ANTEROLATERAL LEADS T WAVE INVERSION NOW EVIDENT IN INFERIOR LEADS T WAVE INVERSION NOW EVIDENT IN ANTEROLATERAL LEADS Confirmed by DORINA OJEDA MD ([id number]) on 06/25/2016 12:25:57 PM Referred By: Confirmed By:DORINA OJEDA MD
--- NOTE | 2016-06-25 12:28 | EKG ---
Test Reason : Blood Pressure : / mmHG Vent. Rate : 074 BPM Atrial Rate : 074 BPM P-R Int : 132 ms QRS Dur : 082 ms QT Int : 380 ms P-R-T Axes : 006 -09 160 degrees QTc Int : 421 ms NORMAL SINUS RHYTHM ABNORMAL ECG WHEN COMPARED WITH ECG OF 24-JUN-2016 15:54, SINUS RHYTHM HAS REPLACED ATRIAL FIBRILLATION VENT. RATE HAS DECREASED BY [address] NO LONGER DEPRESSED IN INFERIOR LEADS ST NO LONGER DEPRESSED IN LATERAL LEADS Confirmed by DORINA OJEDA MD ([id number]) on 06/25/2016 12:28:13 PM Referred By: Confirmed By:DORINA OJEDA MD
--- NOTE | 2016-06-25 13:28 | CONSULT ---
Consult Consult Specialty:: Neurology Reason for Consultation:: ICH - History of Present Illness Chief Complaint: Altered mental status History of Present Illness: 80 year old woman, history of parkinsons disease, hypertension, bilateral hip replacement, presented to ED for altered mental status for one day. On arrival, u/a+ with leukocytosis, increased lactic acid, enlarging lung mass, and atrial fibrillation noted. CT head showed evidence of right temporal acute/subacute hemorrhage. Neurology and Neurosurgery consulted for findings. As per neurosurgery, no acute intervention. Recommend blood pressure control and keppra for seizure prophylaxis. On exam is awake, alert, able to follow simple commands (stick out your tongue) , but not complex commands. Remainder of exam grossly non focal. 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 Cardio/Vascular: Yes: HTN, Other (Unclear if A-fib) Pulmonary: Yes: Other (Lung mass) Gastrointestinal: Yes: GERD Psych: Yes: Depression Musculoskeletal: Yes: Other (Knee and hip replacements) - Past Surgical History Past Surgical History: Yes: Joint Replacement - Alcohol/Substance Use Hx Alcohol Use: No - Smoking History Smoking history: Never smoked Have you smoked in the past 12 months: No Aproximately how many cigarettes per day: 0 If you are a former smoker, when did you quit?: 0 - Social History Usual Living Arrangement: Other Home Medications - Allergies Allergies/Adverse Reactions: Allergies Allergy/AdvReac Type Severity Reaction Status Date / Time pregabalin [From Lyrica] Allergy Verified 06/24/16 14:47 gabapentin [From Neurontin] AdvReac Unknown Verified 06/24/16 14:47 - Home Medications Home Medications: Ambulatory Orders Metoprolol Tartrate [Lopressor -] 50 mg PO BID 05/26/13 Pantoprazole Sodium 40 mg PO DAILY 05/26/13 Venlafaxine HCl ER [Effexor Xr -] 150 mg PO DAILY 05/26/13 Carbidopa/Levodopa 25/100 [Sinemet 25/100 -] 1 each PO TID 03/27/16 Buspirone HCl [Buspar -] 1 tab PO BID 06/24/16 Prednisone [Deltasone -] 1 tab PO DAILY 06/24/16 Quetiapine Fumarate [Seroquel -] 25 mg PO HS 06/24/16 Family Disease History - Family Disease History Family History: Unable to Obtain Review of Systems Unable to obtain ROS, reason: due to mental status Physical Exam Vital Signs: Vital Signs Temperature 98.2 F 06/25/16 10:00 Pulse Rate 62 06/25/16 12:00 Respiratory Rate 14 06/25/16 12:00 Blood Pressure 130/65 06/25/16 12:00 O2 Sat by Pulse Oximetry (%) 100 06/25/16 13:07 Constitutional: Yes: No Distress Eyes: Yes: Conjunctiva Clear, EOM Intact HENT: Yes: Atraumatic, Normocephalic Cardiovascular: Yes: S1, S2 Neurological: Yes: Cran Nerves II-XII Intact, Other (awake, alert, sticks out tongue to command, does not follow complex commands blinks to visual threat bilaterally no obvious facial droop moving all extremities spontaneously without any obvious focal deficits) Labs: CBC, BMP 06/25/16 02:45 06/25/16 02:45 Assessment/Plan 80 year old woman, history of parkinsons disease, hypertension, bilateral hip replacement, presented to ED for altered mental status for one day. On arrival, u/a+ with leukocytosis, increased lactic acid, enlarging lung mass, and atrial fibrillation noted. CT head showed evidence of right temporal acute/subacute hemorrhage. Neurology and Neurosurgery consulted for findings. As per neurosurgery, no acute intervention. Recommend blood pressure control and keppra for seizure prophylaxis. On exam is awake, alert, able to follow simple commands (stick out your tongue) , but not complex commands. Remainder of exam grossly non focal. Right temporal lobe hemorrhage CT head consistent with right temporal lobe hemorrhage Neurosurgery consult appreciated, no acute intervention Recommend blood pressure control, SBP less than 160 No anti platelet, or AC Keppra 750 mg BID, seizure prophylaxis Recommend repeat CT head tomorrow am for stability Once medically stable, MRI brain without contrast for further characterization Encephalopathy, likely metabolic Will order EEG to rule out seizure given hemorrhage Will follow ICU critical care time 35 min
--- NOTE | 2016-06-25 13:58 | CONS ---
DATE OF CONSULTATION: 06/25/2016 CHIEF COMPLAINT: Altered mental status with aphasia. HISTORY OF PRESENT ILLNESS: The patient is an 80-year-old female with a history of Parkinson disease, bilateral hip and left knee replacement, hypertension, and left upper lobe mass who was brought to the emergency room for altered mental status and aphasia for approximately 1-days' duration. The patient was found to be in atrial fibrillation. After medication, she became hypotensive. She was found to have a urinary tract infection with possible urosepsis. According to the family, she was conversant at baseline. PAST MEDICAL HISTORY: Significant for osteoarthritis, hypertension, left upper lobe lung mass, gastroesophageal reflux disease, depression, bilateral hip and left knee replacement. CURRENT MEDICATIONS: Included amiodarone, Bactroban, subcutaneous heparin, Keppra, chlorhexidine. ALLERGIES: LYRICA and GABAPENTIN. SOCIAL HISTORY: She was not reported to smoke or drink. She lives at home. REVIEW OF SYSTEMS: Otherwise, negative for other major cardiovascular, pulmonary, gastrointestinal, genitourinary, endocrinologic, neurological, or psychological problems except for the above. She has no reported recent infection and no reported history of cardiac arrhythmia. PHYSICAL EXAMINATION: Vital Signs: Temperature 98.4, blood pressure 103/56, pulse rate 61, O2 saturation 100% on 2 L. HEENT: Normocephalic and atraumatic. Neck: Supple. Coronary: Demonstrates regular rhythm. Lungs: Show decreased breath sounds at the bases. Abdomen: Obese but benign. Extremities: Shows 1+ edema to bilateral lower extremities and upper extremity. There are no pulses. Difficult to fully appreciate. Neurological: She is drowsy but arousable. She does not verbalize other than making sounds. She occasionally obeys simple1-step commands. Cranial nerve examination shows pupils to be equal and reactive. There is no deviation to the pupil. Face appears to be symmetric. She does not follow commands fully to perform a full cranial nerve examination. Motor examination shows at least 4/5-5/5 to bilateral upper and lower extremity except left dorsiflexion, which is 2/5-3/5. Sensory examination is difficult to assess. Deep tendon reflexes are hyporeflexive throughout. LABORATORY: Shows initial white blood cell count 20,500. It is currently 15,400, hemoglobin 9.8 currently, platelet count 104,000, INR 1.05, PTT 28.1. Serum sodium is 146, potassium 3.1, BUN 22, creatinine 0.9. Lactic acid 3.814 initially and subsequently 3.643 and most recently 1.363. LFTs are normal. Urinalysis shows 2+ blood and 2+ protein as well as 2+ leukocyte esterase. There are 29 RBCs and 694 WBCs. There is moderate bacteria. Urine and blood cultures are pending. CT scan of the head demonstrated 1.5-cm x 8.8-cm irregular margin hyperdense and isodense lesion in the right temporal periventricular region consistent with prior acute/subacute vascular bleed. There is moderate cerebral atrophy. A CT scan from March of this year demonstrates cerebral atrophy and periventricular small vessel disease without the acute bleed at the time. Prior MRI examination demonstrated moderate periventricular small vessel disease and moderate cerebral atrophy. There were no masses or lesions. IMPRESSION: 1. Acute/subacute right temporal periventricular hemorrhage, possibly embolic. 2. Atrial fibrillation. 3. Hypertension. 4. Obesity. 5. Parkinson disease. 6. Osteoarthritis bilateral hip and left knee replacement. 7. Urosepsis. RECOMMENDATIONS: The patient presents with 1+-day history of altered mental status. She has been aphasic, according to the patient's family even though she was conversant at baseline by report. Currently she is not responding to much verbal stimuli. Even still, she does appear to occasionally follow simple commands. I have asked the emergency room to put the patient on Keppra, and she remains on it for seizure prophylaxis given the temporal location of the intracerebral bleed. Her underlying urosepsis and the cardiac arrhythmia are the primary focus at this time. Intracranial bleed does not require neurosurgical intervention. A follow up CT scan should be obtained some time tomorrow to assess the stability of the acute/subacute periventricular bleed in the right temporal region. AXEL DORSEY M.D. [id number]
--- NOTE | 2016-06-25 14:14 | CONS ---
DATE OF CONSULTATION: REQUESTING PHYSICIAN: ICU service. HISTORY: This is an 80-year-old female with past medical history of Parkinson disease who presented to the emergency room with change in mental status. Apparently at baseline she speaks phrases, and now she is nonverbal. She had a head CT that showed a right temporal subacute hemorrhage. She has a known lumbar in her chest that has now expanded since the last chest x-ray in 2016. She was admitted to the ICU for her bleed. She was noted to have an elevated white count of 20,000. She had no fever. She was hemodynamically stable. She has been having some intermittent rapid atrial fibrillation. She was started on Zosyn when she was noted to have white cells in her urine as well she had an elevated lactic acid that has now normalized. I am asked to see her for treatment of her UTI. PAST MEDICAL HISTORY: Notable for history of dementia, Parkinson disease, hypertension. She has a known lumbar mass that has been biopsied here in the past with pathology consistent with metastatic malignant melanoma. She has a history of depression. PAST SURGICAL HISTORY: Notable for joint replacement. She has had bilateral hip and a left knee replacement. HOSPITAL COURSE: In the emergency room she was noted to be in rapid atrial fibrillation. She was given multiple doses of diltiazem and Lopressor and started on amiodarone. Neurology and Neurosurgery were consulted, and she was placed on Keppra prophylactically for high risk of seizure. ALLERGIES: GABAPENTIN. MEDICATIONS: At home include Lopressor, prophylaxis, Effexor, Sinemet, BuSpar, prednisone, and Seroquel. FAMILY HISTORY: Not obtained. SOCIAL HISTORY: Apparently she lives at home. I suspect she is not ambulatory and requires total care. REVIEW OF SYSTEMS: Not obtainable as the patient is unable to participate. PHYSICAL EXAMINATION: General: She is starting to move her arms and legs. She is not speaking. Vital Signs: Temperature 98.4, pulse 61, blood pressure 103/56, respiratory rate 13. She is satting 100% on 2 L. HEENT: She is normocephalic. Her eyes are anicteric. Lungs: Diminished breath sounds at the bases. Heart: Regular rate and rhythm. Abdomen: Soft and nontender. Extremities: Without edema though she has no skin breakdown. She has well-healed scars on her right leg and her knee. Her right leg is 2-3 shorter than her left. Genitourinary: She has a Cormier in place. LABORATORY DATA: Her white count on admission was 20.5, this morning 15.4, BUN 22, creatinine 0.9. Lactic acid 1.3. It was 3.8 yesterday. Liver function tests are notable for a total bilirubin 1.8. Urinalysis is notable for 2+ leukocyte esterase, 694 white cells. Cultures are pending. Chest x-ray reveals an enlarged left upper lobe mass. A head CT reveals this right temporal lobe acute/subacute hemorrhage. In summary, this is an 80-year-old woman with change in mental status secondary to central nervous system bleed, possible UTI, which appears to be responding to Zosyn. She does have a history of ESBL organisms, but I would continue the Zosyn at this time. She has a high risk of seizures. Would like to avoid carbapenems if possible. I think given her hemodynamic stability, we can wait to adjust her antibiotics. Lasting, lung mass biopsy-proved melanoma and Parkinson disease. Further recommendations to follow. JACK FAJARDO M.D. [id number]
--- NOTE | 2016-06-25 18:57 | HP ---
DATE OF ADMISSION: 06/24/2016 DATE OF DICTATION: 06/25/2016 HISTORY OF PRESENT ILLNESS: The patient is an 80-year-old female who was brought to the emergency room with a change in mental status. Here in the emergency room, the patient was found to have atrial fibrillation that had converted back to normal rhythm. She was also diagnosed with urosepsis and an intracranial bleed. She has a past medical history of a metastatic melanoma that was biopsied in 2013. Since then, the mass has increased in size. The patient was in her usual state of health prior to that but the mass had increased in size. She also has Parkinson disease that was diagnosed 2 years ago. In about the last 2 weeks, the patient has been somewhat dysarthric and in about the last week, she has been babbling more at night and has been confused. With these symptoms, she was brought into the emergency room and the above findings have been made. OTHER PAST MEDICAL HISTORY: Significant for depression and osteoarthritis with bilateral joint replacements. PRESENT MEDICATIONS AT HOME: Seroquel 25 mg nightly, Effexor 150 mg daily, pantoprazole 40 mg daily, metoprolol 50 mg twice a day, Sinemet 25/100 three times a day, prednisone and BuSpar . (The prednisone was started as the patient has had headaches recently and was thought to have a temporal arteritis and empirically, prednisone has been started.) SOCIAL HISTORY: She is . She has two children. She lives with her at home. Is a non-smoker, denies any alcohol or drug abuse. 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 FAMILY HISTORY: Significant for two siblings. There is no significant family history that is available. REVIEW OF SYSTEMS: Significant for a recent change in speech that has been lasting for about 2 weeks and headaches that have been lasting for a few months for which she has been on prednisone. PHYSICAL EXAM: Vital signs: She has a blood pressure of 130/65, pulse 62, respiratory rate of 14 and temperature of 98.2. General: She is not pale. Eyes: Anicteric. Neck: JVD is absent. Thyroid and carotids appear are normal. Heart: Regular rhythm, no murmurs. Lungs: Vesicular breathing, clear. Abdomen: Benign. Extremities: No edema. Neurologic: Patient is arousable. LABS: She has a white count of 20,000 with a hemoglobin and hematocrit of 13 and 38, respectively. Platelet count is 125,000. Repeat CBC shows a white count of 15,000 with a hemoglobin and hematocrit of 9.8 and 29, respectively. Her PT/PTT is normal. Her basic metabolic profile has a blood potassium of 3.1. Lactic acid was elevated at 3.81. Now, following treatment, it is 1.63. Her calcium is 7.3, total bilirubin of 1.8. Otherwise, liver function tests are normal. Cardiac enzymes are normal. PRIOR ASSESSMENT AND PLAN: Urinalysis is compatible with urinary tract infection with 2+ leukocyte esterase and 694 WBCs. Chest x-ray reveals an upper lobe mass with a significant interval enlargement in size. A CT scan of the head shows an intracranial periventricular bleed measuring about 2 cm in the temporal region on the right side. ASSESSMENT: 1. Urosepsis. 2. Atrial fibrillation. 3. Intracranial bleed. 4. Malignant metastatic melanoma. 5. Parkinson's. 6. 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 7. Hypokalemia. 8. Sepsis. PLAN: 1. Patient is on antibiotics. 2. Atrial fibrillation has converted back to normal rhythm. 3. Sepsis is resolving with lactic acid, resuming back to normal. 4. Patient is on Keppra for seizure precautions. Neurosurgery has been consulted and surgery has been ruled out at the present. 5. Continue the present supportive measures. 6. Replace potassium. 7. Continue antibiotics. 8. Continue seizure precautions. 9. Gather more information. OVERALL PROGNOSIS: The overall prognosis is grim for this patient of 80 years of age with metastatic melanoma and deteriorating mental status even prior to hospitalization with a poor baseline mental status. The best approach would be to use conservative measures and palliative measures. I discussed this at length with the family. We will continue to discuss this tomorrow. For today, we will continue supportive measures, replace potassium, continue antibiotics, continue seizure precautions and obtain and gather more information. DAMEON BLAIR M.D. [id number]
[2016-06-25] MEDS: CHLORHEXIDINE GLUCONATE 4% CLEANSER FOR DECOLONIZATION TP SCH (21:33)
[2016-06-25] MEDS ORDERED: LACTULOSE 20 GM/30 ML UDC (FOR RECTAL USE ONLY) PR ONE (22:40)
[2016-06-26] MEDS: HEPARIN NA (PORCINE) 5,000 UNITS/ML 1ML VIAL SQ SCH ×3 (01:26→18:41)
[2016-06-26] MEDS: PIPERACILLIN/TAZOB 3.375 GM/50 ML PRE-DOCKED IVPB SCH ×3 (01:27→17:08)
[2016-06-26 06:00] LABS: BASOPHIL 0.2 % (0-2.0); EOSINOPHIL 1.9 % (0-4.5); MCH 29.3 pg (25.7-33.7); MCHC 34.1 g/dl (32.0-36.0); MEAN CELL VOLUME 85.8 fl (80-96); MEAN PLT VOLUME 9.1 fl (7.5-11.1); PLATELET COUNT 110 K/MM3 (134-434); RDW 18.6 % (11.6-15.6)
[2016-06-26 06:46] LABS: ALBUMIN 2.6 g/dl (3.4-5.0); ALK PHOS 60 U/L (45-117); ANION GAP 9 (8-16); BILIRUBIN,TOTAL 2.2 mg/dL (0.2-1.0); CALCIUM 7.7 mg/dL (8.5-10.1); CO2 28 mmol/L (21-32); CREATININE 0.9 mg/dL (0.55-1.02); GLUCOSE,RANDOM 81 mg/dL (74-106); MAGNESIUM 1.6 mg/dL (1.8-2.4); SGOT/AST 14 U/L (15-37); SGPT/ALT 13 U/L (12-78); TOT PROT 4.9 g/dl (6.4-8.2)
--- NOTE | 2016-06-26 09:39 | PN ---
Progress Note (short form) - Note Progress Note: Patient seen and examined in the ICU. Off Amiodarone drip. Awake and interactive. Answering some simple questions through clenched teeth. Denies CP or SOB. Intake & Output 06/23/16 06/24/16 06/25/16 06/26/16 23:59 23:59 23:59 23:59 Intake Total 1583.0 199.6 Output Total 1600 600 Balance -17.0 -400.4 Weight 180 lb 196 lb 191 lb Last Vital Signs Temp Pulse Resp BP Pulse Ox 98 F 73 18 162/83 100 06/26/16 06:00 06/26/16 08:00 06/26/16 08:00 06/26/16 08:00 06/26/16 08:00 Active Medications Chlorhexidine Gluconate (Hibiclens For Decolonization -) 1 applic TP HS ERIN Last Admin: 06/25/16 21:33 Dose: 1 applic Heparin Sodium (Porcine) (Heparin -) 5,000 unit SQ Q8H-IV ERIN Last Admin: 06/26/16 01:26 Dose: 5,000 unit Amiodarone HCl 450 mg/ (Dextrose) 250 mls @ 16.66 mls/hr IVPB TITR ERIN; 0.5 MG/ MIN PRN Reason: Protocol Last Admin: 06/25/16 12:36 Dose: 16.66 mls/hr Levetiracetam (Keppra Injection -) 750 mg IVPB BID ERIN Last Admin: 06/25/16 21:33 Dose: 750 mg Mupirocin (Bactroban Ointment (For Decolonization) -) 1 applic NS BID ERIN Stop: 06/30/16 09:59 Last Admin: 06/25/16 22:00 Dose: 1 applic Piperacillin Sod/Tazobactam Sod (Zosyn 3.375gm Ivpb (Pre-Docked)) 3.375 gm IVPB Q8H-IV ERIN PRN Reason: Protocol Last Admin: 06/26/16 01:27 Dose: 3.375 gm Constitutional: Yes: No Distress, Obese, mildly confused Eyes: Yes: Conjunctiva Clear, PERRL HENT: Yes: Atraumatic, Normocephalic Neck: Yes: Supple Cardiovascular: Yes: Tachycardia (A fib with RVR) Respiratory: Yes: CTA Bilaterally, On Nasal O2 Gastrointestinal: Yes: Normal Bowel Sounds, Soft ...Rectal Exam: Yes: Deferred Renal/: Yes: Incontinence Musculoskeletal: Yes: Joint Stiffness (Multiple surgical scars; decreased ROM on BLE) Extremities: Yes: LLE redness and edema Edema: LUE: 1+, RUE: 1+, LLE: 2+, RLE: 2+ Peripheral Pulses WNL: Yes Neurological: Yes: non-focal ...Motor Strength: WNL, LUE, RUE Psychiatric: Yes: Other (no verbal response) Labs: Laboratory Results - last 24 hr 06/25/16 06/25/16 06/25/16 07:30 07:30 12:10 WBC RBC Hgb Hct MCV MCHC RDW Plt Count MPV Neutrophils % Lymphocytes % Monocytes % Eosinophils % Basophils % Sodium Potassium Chloride Carbon Dioxide Anion Gap BUN Creatinine Creat Clearance w eGFR POC Glucometer [phone] Random Glucose Calcium Magnesium Total Bilirubin AST ALT Alkaline Phosphatase Total Protein Albumin Ur Random Sodium 79 Ur Random Potassium 36.4 Ur Random Chloride 94 Urine Creatinine 39.5 06/26/16 06/26/16 05:00 05:00 WBC 15.0 H RBC 3.92 Hgb 11.5 D Hct 33.7 D MCV 85.8 MCHC 34.1 RDW 18.6 H Plt Count 110 L MPV 9.1 Neutrophils % 84.0 H Lymphocytes % 8.7 Monocytes % 5.2 Eosinophils % 1.9 Basophils % 0.2 Sodium 143 Potassium 3.8 D Chloride 106 Carbon Dioxide 28 Anion Gap 9 BUN 14 D Creatinine 0.9 Creat Clearance w eGFR > 60 POC Glucometer Random Glucose 81 D Calcium 7.7 L Magnesium 1.6 L Total Bilirubin 2.2 H D AST 14 L ALT 13 D Alkaline Phosphatase 60 Total Protein 4.9 L Albumin 2.6 L Ur Random Sodium Ur Random Potassium Ur Random Chloride Urine Creatinine Problem List - Problems (1) Altered mental status Code(s): R41.82 - ALTERED MENTAL STATUS, UNSPECIFIED Qualifiers: Altered mental status type: unspecified Qualified Code(s): R41.82 - Altered mental status, unspecified (2) Atrial fibrillation Code(s): I48.91 - UNSPECIFIED ATRIAL FIBRILLATION Qualifiers: Atrial fibrillation type: unspecified Qualified Code(s): I48.91 - Unspecified atrial fibrillation (3) ICH (intracerebral hemorrhage) Code(s): I61.9 - NONTRAUMATIC INTRACEREBRAL HEMORRHAGE, UNSPECIFIED Qualifiers : Intracerebral hemorrhage etiology: nontraumatic Cerebral hemorrhage location: unspecified cerebral location (4) UTI (urinary tract infection) Code(s): N39.0 - URINARY TRACT INFECTION, SITE NOT SPECIFIED Qualifiers: Urinary tract infection type: site unspecified Hematuria presence: without hematuria Qualified Code(s): N39.0 - Urinary tract infection, site not specified Assessment/Plan US of the LE ABX O2 as needed Trial of PO Aspiration precautions Rate control Monitor I&O SQ Heparin Telemetry monitoring Dr Norman CCTime 35"
--- NOTE | 2016-06-26 09:58 | PN ---
Progress Note (short form) - Note Progress Note: much more alert talking Vital Signs Period Temp Pulse Resp BP Sys/Blake Pulse Ox Last 24 Hr 97.6 F-98.5 F 62-74 12-22 118-162/56-104 100-100 cor-rrr lungs decreased bs at bases abd soft,nt ext +edema CBC, BMP 06/26/16 05:00 06/26/16 05:00 Microbiology 06/24/16 16:15 Blood - Peripheral Venous Blood Culture - Preliminary NO GROWTH OBTAINED AFTER 24 HOURS, INCUBATION TO CONTINUE FOR 4 DAYS. 06/24/16 16:15 Blood - Peripheral Venous Blood Culture - Preliminary NO GROWTH OBTAINED AFTER 24 HOURS, INCUBATION TO CONTINUE FOR 4 DAYS. Current Medications Chlorhexidine Gluconate (Hibiclens For Decolonization -) 1 applic TP HS ERIN Last Admin: 06/25/16 21:33 Dose: 1 applic Heparin Sodium (Porcine) (Heparin -) 5,000 unit SQ Q8H-IV ERIN Last Admin: 06/26/16 01:26 Dose: 5,000 unit Amiodarone HCl 450 mg/ (Dextrose) 250 mls @ 16.66 mls/hr IVPB TITR ERIN; 0.5 MG/ MIN PRN Reason: Protocol Last Admin: 06/25/16 12:36 Dose: 16.66 mls/hr Levetiracetam (Keppra Injection -) 750 mg IVPB BID ERIN Last Admin: 06/25/16 21:33 Dose: 750 mg Mupirocin (Bactroban Ointment (For Decolonization) -) 1 applic NS BID ERIN Stop: 06/30/16 09:59 Last Admin: 06/25/16 22:00 Dose: 1 applic Piperacillin Sod/Tazobactam Sod (Zosyn 3.375gm Ivpb (Pre-Docked)) 3.375 gm IVPB Q8H-IV ERIN PRN Reason: Protocol Last Admin: 06/26/16 01:27 Dose: 3.375 gm a/p 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 UTI lung mass parkinsons disease history ESBL organisms- continue contact isolation f/u cultures continue zosyn Problem List - Problems (1) ICH (intracerebral hemorrhage) Code(s): I61.9 - NONTRAUMATIC INTRACEREBRAL HEMORRHAGE, UNSPECIFIED Qualifiers : Intracerebral hemorrhage etiology: nontraumatic Cerebral hemorrhage location: unspecified cerebral location (2) UTI (urinary tract infection) Code(s): N39.0 - URINARY TRACT INFECTION, SITE NOT SPECIFIED Qualifiers: Urinary tract infection type: site unspecified Hematuria presence: without hematuria Qualified Code(s): N39.0 - Urinary tract infection, site not specified (3) Lung mass Code(s): R91.8 - OTHER NONSPECIFIC ABNORMAL FINDING OF LUNG FIELD
[2016-06-26] MEDS ORDERED: METOPROLOL TARTRATE 5 MG/5 ML VIAL IVPUSH PRN (10:12)
--- NOTE | 2016-06-26 10:13 | PN ---
Progress Note (short form) - Note Progress Note: NEUROSURGERY In ICU PE: 160/100; AF, VSS HEENT- NC/AT; Neck- supple; Cor- Irreg; Chest- decreased BS at bases; Abd- obese , benign; Ext- mild LE edema B NEURO- making more sounds, arousable; more awake CN- PEERL; face symmetri; Motor- 4/5 B UE except L DF 2-3, increased tone B UE > LE; Sensation- unable to fully assess; DTR- hyporefelxic WBC 15; Hgb 11.[address]- (): moderate atrophy and periventricular small vessel dz Head CT -(06-24-2016): acute-subacute R temporal periventricular ICH 1.5 x 1.8 cm ; no edema Blood culture negative to date; urine culture pending Acute-subacute embolic hemorrhagic stroke in face of AFib; UTI/urosepsis No neurosurgical intervention indicated Cont Keppra for sz prophylaxis Hold AC/NSAIDS BP control keep SBP < 160; DBP <90 F/U contrast/non-contrast Head CT to ascertain stability and r/o enhancing lesion given h/o metastatic melanoma D/w Dr Norman
[2016-06-26] MEDS ORDERED: PT OWN MED DRAWER 7, Y5N ONE (10:14)
[2016-06-26] MEDS: AMIODARONE HCL INJECTION 450 MG in DEXTROSE 5%-WATER - 241 ML IVPB SCH (10:16)
[2016-06-26] MEDS: levETIRAcetam 500 MG/5 ML INJECTION VIAL IVPB SCH ×3 (10:28→22:03)
[2016-06-26] MEDS: MAGNESIUM SULF 50% (8.12 MEQ/2 ML-1 GM VIAL) IVPB ONE ×2 (10:28→17:07)
[2016-06-26] MEDS: MUPIROCIN 2% TOPICAL OINTMENT FOR DECOLONIZATION NS SCH ×2 (10:28→22:02)
[2016-06-26] MEDS: METOPROLOL TARTRATE 50 MG TABLET (FP) PO SCH ×2 (10:30→22:03)
--- NOTE | 2016-06-26 12:11 | PN ---
Progress Note (short form) - Note Progress Note: Consult Specialty:: Neurology Reason for Consultation:: ICH - History of Present Illness Chief Complaint: Altered mental status History of Present Illness: 80 year old woman, history of parkinsons disease, hypertension, bilateral hip replacement, presented to ED for altered mental status for one day. On arrival, u/a+ with leukocytosis, increased lactic acid, enlarging lung mass, and atrial fibrillation noted. CT head showed evidence of right temporal acute/subacute hemorrhage. Neurology and Neurosurgery consulted for findings. As per neurosurgery, no acute intervention. Recommend blood pressure control and keppra for seizure prophylaxis. On exam is awake, alert, able to follow simple commands (stick out your tongue) , but not complex commands. Remainder of exam grossly non focal. 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, Parkinson's Cardio/Vascular: Yes: HTN, Other (Unclear if A-fib) Pulmonary: Yes: Other (Lung mass) Gastrointestinal: Yes: GERD Psych: Yes: Depression Musculoskeletal: Yes: Other (Knee and hip replacements) - Past Surgical History Past Surgical History: Yes: Joint Replacement - Alcohol/Substance Use Hx Alcohol Use: No - Smoking History Smoking history: Never smoked Have you smoked in the past 12 months: No Aproximately how many cigarettes per day: 0 If you are a former smoker, when did you quit?: 0 - Social History Usual Living Arrangement: Other Home Medications - Allergies Allergies/Adverse Reactions: Allergies Allergy/AdvReac Type Severity Reaction Status Date / Time pregabalin [From Lyrica] Allergy Verified 06/24/16 14:47 gabapentin [From Neurontin] AdvReac Unknown Verified 06/24/16 14:47 - Home Medications Home Medications: Ambulatory Orders Metoprolol Tartrate [Lopressor -] 50 mg PO BID 05/26/13 Pantoprazole Sodium 40 mg PO DAILY 05/26/13 Venlafaxine HCl ER [Effexor Xr -] 150 mg PO DAILY 05/26/13 Carbidopa/Levodopa 25/100 [Sinemet 25/100 -] 1 each PO TID 03/27/16 Buspirone HCl [Buspar -] 1 tab PO BID 06/24/16 Prednisone [Deltasone -] 1 tab PO DAILY 06/24/16 Quetiapine Fumarate [Seroquel -] 25 mg PO HS 06/24/16 Family Disease History - Family Disease History Family History: Unable to Obtain Review of Systems Unable to obtain ROS, reason: due to mental status Physical Exam Vital Signs: Vital Signs Temperature 98.2 F 06/25/16 10:00 Pulse Rate 62 06/25/16 12:00 Respiratory Rate 14 06/25/16 12:00 Blood Pressure 130/65 06/25/16 12:00 O2 Sat by Pulse Oximetry (%) 100 06/25/16 13:07 Constitutional: Yes: No Distress Eyes: Yes: Conjunctiva Clear, EOM Intact HENT: Yes: Atraumatic, Normocephalic Cardiovascular: Yes: S1, S2 Neurological: Yes: Cran Nerves II-XII Intact, Other (opens eyes to verbal command, sticks out tongue to command, does not follow complex commands blinks to visual threat bilaterally no obvious facial droop moving all extremities spontaneously without any obvious focal deficits) Assessment/Plan 80 year old woman, history of parkinsons disease, hypertension, bilateral hip replacement, presented to ED for altered mental status for one day. On arrival, u/a+ with leukocytosis, increased lactic acid, enlarging lung mass, and atrial fibrillation noted. CT head showed evidence of right temporal acute/subacute hemorrhage. Neurology and Neurosurgery consulted for findings. As per neurosurgery, no acute intervention. Recommend blood pressure control and keppra for seizure prophylaxis. On exam opens eyes to verbal stimuli, able to follow simple commands (stick out your tongue), but not complex commands Right temporal lobe hemorrhage Repeat CT head pending Neurosurgery consult appreciated, no acute intervention Recommend blood pressure control, SBP less than 160 No anti platelet, or AC Keppra 750 mg BID, seizure prophylaxis Once medically stable, MRI brain without contrast for further characterization given history of melanoma Encephalopathy, likely metabolic EEG to rule out seizure pending Continue supportive care
--- NOTE | 2016-06-26 19:51 | PN ---
Progress Note (short form) - Note Progress Note: Non verbal O/E follows a few commands but mostly lethargic No fever Herat irregular Lungs few scattered rales+ Abd soft Ext b/l trace edema Vital Signs Period Temp Pulse Resp BP Sys/Blake Pulse Ox Last 24 Hr 97.6 F-98.6 F 63-156 14-22 129-176/63-104 100-100 Laboratory Results - last 24 hr 06/26/16 06/26/16 05:00 05:00 WBC 15.0 H RBC 3.92 Hgb 11.5 D Hct 33.7 D MCV 85.8 MCHC 34.1 RDW 18.6 H Plt Count 110 L MPV 9.1 Neutrophils % 84.0 H Lymphocytes % 8.7 Monocytes % 5.2 Eosinophils % 1.9 Basophils % 0.2 Sodium 143 Potassium 3.8 D Chloride 106 Carbon Dioxide 28 Anion Gap 9 BUN 14 D Creatinine 0.9 Creat Clearance w eGFR > 60 Random Glucose 81 D Calcium 7.7 L Magnesium 1.6 L Total Bilirubin 2.2 H D AST 14 L ALT 13 D Alkaline Phosphatase 60 Total Protein 4.9 L Albumin 2.6 L Current Medications Chlorhexidine Gluconate (Hibiclens For Decolonization -) 1 applic TP HS ERIN Last Admin: 06/25/16 21:33 Dose: 1 applic Heparin Sodium (Porcine) (Heparin -) 5,000 unit SQ Q8H-IV ERIN Last Admin: 06/26/16 18:41 Dose: 5,000 unit Amiodarone HCl 450 mg/ (Dextrose) 250 mls @ 16.66 mls/hr IVPB TITR ERIN; 0.5 MG/ MIN PRN Reason: Protocol Last Admin: 06/26/16 10:16 Dose: Not Given Levetiracetam (Keppra Injection -) 750 mg IVPB BID ERIN Last Admin: 06/26/16 17:07 Dose: Not Given Metoprolol Tartrate (Lopressor -) 50 mg PO BID ERIN Last Admin: 06/26/16 10:30 Dose: 50 mg Metoprolol Tartrate (Lopressor Injection -) 5 mg IVPUSH Q4H PRN PRN Reason: HYPERTENSION Last Admin: 06/26/16 10:17 Dose: 5 mg Mupirocin (Bactroban Ointment (For Decolonization) -) 1 applic NS BID ERIN Stop: 06/30/16 09:59 Last Admin: 06/26/16 10:28 Dose: 1 applic Piperacillin Sod/Tazobactam Sod (Zosyn 3.375gm Ivpb (Pre-Docked)) 3.375 gm IVPB Q8H-IV ERIN PRN Reason: Protocol Last Admin: 06/26/16 17:08 Dose: Not Given A&P 1. Intra cranial bleed 2. Metastatic melanoma 3. UTI 4. A.fib 5.. Change in MS 6. HTN Will hold off on repeat CT given vascular access problems. Besides repeating CT scans will be only of diagnostic curiosity as interventions on any findings in this patient with all the comorbidities is not likely. Will attempt to reach her sister who is the health care proxy for this patient to discuss palliative measures which is most appropriate in this case. Add Diovan for better BP control.
[2016-06-26] MEDS: VALSARTAN 160 MG TABLET (UD) PO SCH (22:02)
[2016-06-26] MEDS: CHLORHEXIDINE GLUCONATE 4% CLEANSER FOR DECOLONIZATION TP SCH (22:03)
[2016-06-27] MEDS: HEPARIN NA (PORCINE) 5,000 UNITS/ML 1ML VIAL SQ SCH (01:42)
[2016-06-27] MEDS: PIPERACILLIN/TAZOB 3.375 GM/50 ML PRE-DOCKED IVPB SCH ×3 (01:47→18:46)
[2016-06-27 06:23] LABS: MCH 29.2 pg (25.7-33.7); MCHC 34.4 g/dl (32.0-36.0); MEAN CELL VOLUME 84.7 fl (80-96); PLATELET COUNT 106 K/MM3 (134-434); WHITE BLOOD COUNT 14.4 K/mm3 (4.0-10.0)
[2016-06-27 06:45] LABS: ALBUMIN 2.5 g/dl (3.4-5.0); ALK PHOS 59 U/L (45-117); ANION GAP 13 (8-16); BILIRUBIN,TOTAL 2.1 mg/dL (0.2-1.0); CALCIUM 7.3 mg/dL (8.5-10.1); CO2 27 mmol/L (21-32); CREATININE 0.6 mg/dL (0.55-1.02); GLUCOSE,RANDOM 86 mg/dL (74-106); SGOT/AST 12 U/L (15-37); SGPT/ALT 14 U/L (12-78); TOT PROT 4.5 g/dl (6.4-8.2)
--- NOTE | 2016-06-27 07:29 | PN ---
Progress Note (short form) - Note Progress Note: ID Lethargic Zosyn day 2 Selected Entries 06/27/16 06:00 Temperature 97.8 F Pulse Rate 72 Respiratory 20 Rate Blood Pressure 157/77 Microbiology 06/24/16 16:15 Urine - Urine Clean Catch Urine Culture - Preliminary Lactose Fermenting Neg Bacilli Lactose Fermenting Neg Bacilli#2 06/24/16 16:15 Blood - Peripheral Venous Blood Culture - Preliminary NO GROWTH OBTAINED AFTER 48 HOURS, INCUBATION TO CONTINUE FOR 3 DAYS. 06/24/16 16:15 Blood - Peripheral Venous Blood Culture - Preliminary NO GROWTH OBTAINED AFTER 48 HOURS, INCUBATION TO CONTINUE FOR 3 DAYS. Laboratory Tests 06/24/16 06/24/16 06/25/16 16:15 16:15 02:45 WBC Hgb Hct Plt Count INR 1.05 PTT (Actin FS) 28.1 Creatinine Total Bilirubin Alkaline Phosphatase Urine WBC 694 Urine Bacteria Moderate 06/27/16 06/27/16 05:20 05:20 WBC 14.4 H Hgb 11.4 Hct 33.2 Plt Count 106 L INR PTT (Actin FS) Creatinine 0.6 D Total Bilirubin 2.1 H Alkaline Phosphatase 59 Urine WBC Urine Bacteria Assessment Intracerebral hemmorage Atrial fibrillation UTI ( GNB) Histsory of ESBL Plan Zosyn pending final c/s Seizure medarchana Reyes MD Problem List - Problems (1) Atrial fibrillation Code(s): I48.91 - UNSPECIFIED ATRIAL FIBRILLATION Qualifiers: Atrial fibrillation type: unspecified Qualified Code(s): I48.91 - Unspecified atrial fibrillation (2) ICH (intracerebral hemorrhage) Code(s): I61.9 - NONTRAUMATIC INTRACEREBRAL HEMORRHAGE, UNSPECIFIED Qualifiers : Intracerebral hemorrhage etiology: nontraumatic Cerebral hemorrhage location: unspecified cerebral location (3) UTI (urinary tract infection) Code(s): N39.0 - URINARY TRACT INFECTION, SITE NOT SPECIFIED Qualifiers: Urinary tract infection type: site unspecified Hematuria presence: without hematuria Qualified Code(s): N39.0 - Urinary tract infection, site not specified
[2016-06-27] MEDS ORDERED: POTASSIUM CHLORIDE 20 MEQ PREMIX IVPB 100 ML IVPB ONE ×2 (07:56)
--- NOTE | 2016-06-27 08:00 | PN ---
Progress Note (short form) - Note Progress Note: NEUROSURGERY In ICU No iv contrast for head CT for lack of iv access PE: AF, VSS 157/77 HEENT- NC/AT; Neck- supple; Cor- Irreg; Chest- decreased BS at bases; Abd- obese , benign; Ext- mild LE edema B NEURO- making more sounds, arousable; more awake CN- PEERL; face symmetri; Motor- 4/5 B UE and B DF/PF; increased tone B UE > LE ; Sensation- grossly intact LT; DTR- hyporefelxic Head CT- (): moderate atrophy and periventricular small vessel dz Head CT -(06-24-2016): acute-subacute R temporal periventricular ICH 1.5 x 1.8 cm ; no edema Head CT (06-26-16): unchanged R temporal ICH, minimal edema; atrophy Blood culture negative to date; urine culture - gram negative rods 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
[2016-06-27] MEDS ORDERED: MAGNESIUM SULF 50% (8.12 MEQ/2 ML-1 GM VIAL) ONE (08:27)
[2016-06-27] MEDS: KCL 10 MEQ IVPB 100 ML IVPB SCH ×6 (08:33→21:32)
[2016-06-27] MEDS ORDERED: MAGNESIUM SULF 50% (8.12 MEQ/2 ML-1 GM VIAL) IVPB ONE (08:45)
[2016-06-27] MEDS: METOPROLOL TARTRATE 50 MG TABLET (FP) PO SCH ×2 (09:10→23:33)
[2016-06-27] MEDS: VALSARTAN 160 MG TABLET (UD) PO SCH (09:10)
--- NOTE | 2016-06-27 10:53 | CON.CARD ---
Consult Consult Specialty:: cardio Referred by:: luanne Reason for Consultation:: afib - History of Present Illness Chief Complaint: altered MS History of Present Illness: 80 year old woman, history of parkinsons disease, hypertension, bilateral hip replacement, presented to ED for altered mental status for one day. On arrival, u/a+ with leukocytosis, increased lactic acid, enlarging lung mass, and atrial fibrillation noted. CT head showed evidence of right temporal acute/subacute hemorrhage. As per neurosurgery, no acute intervention. 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, Parkinson's Cardio/Vascular: Yes: HTN, Other (Unclear if A-fib) Pulmonary: Yes: Other (Lung mass) Gastrointestinal: Yes: GERD Psych: Yes: Depression Musculoskeletal: Yes: Other (Knee and hip replacements) - Past Surgical History Past Surgical History: Yes: Joint Replacement - Alcohol/Substance Use Hx Alcohol Use: No - Smoking History Smoking history: Never smoked Have you smoked in the past 12 months: No Aproximately how many cigarettes per day: 0 If you are a former smoker, when did you quit?: 0 - Social History Usual Living Arrangement: Other Home Medications - Allergies Allergies/Adverse Reactions: Allergies Allergy/AdvReac Type Severity Reaction Status Date / Time pregabalin [From Lyrica] Allergy Verified 06/24/16 14:47 gabapentin [From Neurontin] AdvReac Unknown Verified 06/24/16 14:47 - Home Medications Home Medications: Ambulatory Orders Metoprolol Tartrate [Lopressor -] 50 mg PO BID 05/26/13 Pantoprazole Sodium 40 mg PO DAILY 05/26/13 Venlafaxine HCl ER [Effexor Xr -] 150 mg PO DAILY 05/26/13 Carbidopa/Levodopa 25/100 [Sinemet 25/100 -] 1 each PO TID 03/27/16 Buspirone HCl [Buspar -] 1 tab PO BID 06/24/16 Prednisone [Deltasone -] 1 tab PO DAILY 06/24/16 Quetiapine Fumarate [Seroquel -] 25 mg PO HS 06/24/16 Family Disease History - Family Disease History Family History: Unable to Obtain Review of Systems Unable to obtain ROS, reason: lethargy Vital Signs: Vital Signs Temperature 98.1 F 06/27/16 10:00 Pulse Rate 74 06/27/16 10:00 Respiratory Rate 20 06/27/16 10:00 Blood Pressure 141/79 06/27/16 10:00 O2 Sat by Pulse Oximetry (%) 100 06/26/16 22:00 Constitutional: Yes: Well Nourished, No Distress Eyes: No: Sclera Icterus HENT: No: Nasal Congestion Neck: No: Decreased ROM Respiratory: Yes: CTA Bilaterally (anteriorly (not deep breaths)). No: Accessory Muscle Use, Rales, Wheezes Gastrointestinal: Yes: Normal Bowel Sounds. No: Distention, Hepatomegaly, Palpable Mass, Tenderness Cardiovascular: Yes: Regular Rate and Rhythm JVD: No Carotid Bruit: No PMI: Non-Displaced Heart Sounds: Yes: S1, S2. No: Gallop Murmur: No: Systolic Murmur, Diastolic Murmur Musculoskeletal: Yes: Other (No kyphosis) Extremities: No: Cold, Cyanosis Edema: Yes (mild pedal edema) Peripheral Pulses: 2+ Left Carotid, 2+ Right Carotid, 2+ Left Doralis Pedis, 2+ Right Dorsalis Pedis Integumentary: No: Jaundice Neurological: Yes: Alert, Lethargy. No: Seizure Psychiatric: No: Agitated - Other Data Labs, Other Data: CBC, BMP 06/27/16 05:20 06/27/16 05:20 INR, PTT INR 1.05 (0.82-1.09) 06/24/16 16:15 Laboratory Tests 06/24/16 06/25/16 06/27/16 16:15 02:45 05:20 WBC 14.4 H Hgb 11.4 Plt Count 106 L Sodium Potassium Carbon Dioxide BUN Creatinine AST ALT Troponin I 0.07 H 0.07 H 06/27/16 05:20 WBC Hgb Plt Count Sodium 141 Potassium 2.7 L* D Carbon Dioxide 27 BUN 9 D Creatinine 0.6 D AST 12 L ALT 14 Troponin I ekg 06/06: rapid AF, diffuse ST-Ts (changed vs 2014 prior) ekg #2 06/24: NSR, ST-Ts persist, though improved tele: NSR, no pafib Imaging - Results Chest X-ray: Report Reviewed ([place] mass unchanged) Assessment/Plan MPI 08/2014 (persantine): no STs; "small subtle apical reversible defect suggestive of mild ischemia"; nl EF acute temporal lobe hemorrhage: -bp control to target sbp <160 per neuro -no AC or anti-plt's at present, per neuro -neurosurgery following (conservative mgmt) paroxysmal afib: -rapid PAF on 06/06 -currently in sinus on tele -cont metoprolol as doing, monitor tele for recurrence -CHADS-VASC 4 (vs 5?...if cad) -no AC until cleared by neuro -? if the ICH was due to acute embolic CVA--neuro notes not suggesting this but possibility raised by neuro surgery--h/o metastatic malignant melanoma noted -check echo HTN: -mgmt as disc'd -currently controlled -cont diovan, metoprolol -if continues to spike temporarily to >160 will add amlodipine ? CAD: -"small, subtle" apical defect suggestive of ischemia on 2014 nuclear here -not followed by cardio in our office -no acute tx changes at the moment in any event -outpt cardio f/u once stable neurologically -trop x 2 here unremarkable metastatic melanoma (to lungs): -per onc, pmd hypokalemia: -repletion ordered -f/u labs thrombocytopenia: -per pmd, critical care
[2016-06-27] MEDS: MUPIROCIN 2% TOPICAL OINTMENT FOR DECOLONIZATION NS SCH ×2 (11:00→23:32)
[2016-06-27] MEDS: levETIRAcetam 500 MG/5 ML INJECTION VIAL IVPB SCH ×2 (11:00→23:33)
--- NOTE | 2016-06-27 11:56 | PN ---
Physical Exam: SUBJECTIVE: Patient seen and examined at bedside in the ICU. She's weak appearing and was able to tell me where she is and today's date. Per nurse, no acute event overnight. OBJECTIVE: Vital Signs Period Temp Pulse Resp BP Sys/Blake Pulse Ox Last 24 Hr 97.8 F-98.6 F 63-77 14-22 116-176/50-97 100-100 GENERAL: Confused, sleepy, awake upon sternal rub and oriented to place and time , not place HEAD: AT, NC EYES: Pupils equal, round and reactive to light, sclera anicteric, conjunctiva clear ENT: oropharynx clear without exudates LUNGS: CTAB HEART: Irregular, S1 and S2, no murmur or rub ABDOMEN: +bs, soft, non-tender EXTREMITIES: trace edema. CBCD WBC 14.4 K/mm3 (4.0-10.0) H 06/27/16 05:20 RBC 3.92 M/mm3 (3.60-5.2) 06/27/16 05:20 Hgb 11.4 GM/dL (10.7-15.3) 06/27/16 05:20 Hct 33.2 % (32.4-45.2) 06/27/16 05:20 MCV 84.7 fl (80-96) 06/27/16 05:20 MCHC 34.4 g/dl (32.0-36.0) 06/27/16 05:20 RDW 18.0 % (11.6-15.6) H 06/27/16 05:20 Plt Count 106 K/MM3 (134-434) L 06/27/16 05:20 MPV 9.0 fl (7.5-11.1) 06/27/16 05:20 CMP Sodium 141 mmol/L (136-145) 06/27/16 05:20 Potassium 2.7 mmol/L (3.5-5.1) L* D 06/27/16 05:20 Chloride 101 mmol/L (98-107) 06/27/16 05:20 Carbon Dioxide 27 mmol/L (21-32) 06/27/16 05:20 Anion Gap 13 (8-16) 06/27/16 05:20 BUN 9 mg/dL (7-18) D 06/27/16 05:20 Creatinine 0.6 mg/dL (0.55-1.02) D 06/27/16 05:20 Creat Clearance w eGFR > 60 (>60) 06/27/16 05:20 Calcium 7.3 mg/dL (8.5-10.1) L 06/27/16 05:20 Total Bilirubin 2.1 mg/dL (0.2-1.0) H 06/27/16 05:20 AST 12 U/L (15-37) L 06/27/16 05:20 ALT 14 U/L (12-78) 06/27/16 05:20 Alkaline Phosphatase 59 U/L (45-117) 06/27/16 05:20 Total Protein 4.5 g/dl (6.4-8.2) L 06/27/16 05:20 Albumin 2.5 g/dl (3.4-5.0) L 06/27/16 05:20 Intake & Output 06/24/16 06/25/16 06/26/16 06/27/16 23:59 23:59 23:59 23:59 Intake Total 1583.0 349.6 50 Output Total 1600 1800 1350 Balance -17.0 -1450.4 -1300 Weight 81.647 kg 88.904 kg 86.636 kg 85.457 kg Active Medications Generic Name Dose Route Start Last Admin Trade Name Freq PRN Reason Stop Dose Admin Chlorhexidine Gluconate 1 applic 06/25/16 22:00 06/26/16 22:03 Hibiclens For Decolonization - TP 1 applic HS ERIN Administration Heparin Sodium (Porcine) 5,000 unit 06/25/16 01:30 06/27/16 01:42 Heparin - SQ 5,000 unit Q8H-IV ERIN Administration Levetiracetam 750 mg 06/25/16 10:00 06/26/16 22:03 Keppra Injection - IVPB 750 mg BID ERIN Administration Metoprolol Tartrate 50 mg 06/26/16 10:15 06/27/16 09:10 Lopressor - PO 50 mg BID ERIN Administration Metoprolol Tartrate 5 mg 06/26/16 10:12 06/26/16 10:17 Lopressor Injection - IVPUSH 5 mg Q4H PRN Administration HYPERTENSION Mupirocin 1 applic 06/25/16 10:00 06/26/16 22:02 Bactroban Ointment (For Decolonization) - NS 06/30/16 09:59 1 applic BID ERIN Administration Piperacillin Sod/Tazobactam Sod 3.375 gm 06/25/16 11:30 06/27/16 01:47 Zosyn 3.375gm Ivpb (Pre-Docked) IVPB 3.375 gm Q8H-IV ERIN Administration Protocol Valsartan 160 mg 06/26/16 20:00 06/27/16 09:10 Diovan - PO 160 mg DAILY ERIN Administration ASSESSMENT/PLAN: 80 yo F h/o Parkinsons, HTN, , UTI with ESBL, bilateral hip replacements and left knee replacement admitted to the ICU for urosepsis, a-fib with RVR and AMS 2/2 intracranial hemorrhage. ID: Sepsis 2/2 complicated UTI - h/o ESBL - Culture grew ESBL and sensitive to zosyn - Cont. zosyn day 3 - Cont. isolation Neuro: AMS 2/2 intracranial hemorrhage and urosepsis - CT head showed acute R temporal hemorrhage with minimal edema - Cont. keppra 750mg BID - Maintain SBP < 160, DBP < 90 * Lopressor PRN for BP control - No anti-coagulation or NSAID for 1 month Cardiac: A-fib with RVR - Rhythm converted, rated controlled - D/c amiodarone - Cont. cardiac monitoring - Observe off AC and NSAID Pulm: Lung mass - [place] lung nodule vs. mass - CT chest w/o contrast - F/u as outpatient FEN - No IVF indicated - Hypokalemia, repleted Mg2+ and K+, recheck at 4pm - Awaits S&S eval Prophylaxis - DVT: d/c heparin; SCDs - GI: not indicated Disposition -Transfer to telemetry Code status - Full code Visit type - Emergency Visit Emergency Visit: No - New Patient This patient is new to me today: Yes Date on this admission: 06/27/16 - Critical Care Critical Care patient: Yes Total Critical Care Time (in minutes): 45 Critical Care Statement: The care of this patient involved high complexity decision making to prevent further life threatening deterioration of the patient 's condition and/or to evalute & treat vital organ system(s) failure or risk of failure.
--- NOTE | 2016-06-27 12:19 | PN ---
Teaching Attending Note Name of Resident: Oscar Pavon ATTENDING PHYSICIAN STATEMENT I saw and evaluated the patient. I reviewed the resident's note and discussed the case with the resident. I agree with the resident's findings and plan as documented. SUBJECTIVE: Pt seen and examined in the ICU. No acute events overnight. No fevers recorded. Urine culture growing ESBL E Coli OBJECTIVE: Last Vital Signs Temp Pulse Resp BP Pulse Ox 98.1 F 74 20 141/60 100 06/27/16 10:00 06/27/16 12:00 06/27/16 12:00 06/27/16 12:00 06/27/16 10:53 Intake & Output 06/24/16 06/25/16 06/26/16 06/27/16 23:59 23:59 23:59 23:59 Intake Total 1583.0 349.6 50 Output Total 1600 1800 700 Balance -17.0 -1450.4 -650 Weight 180 lb 196 lb 191 lb 188 lb 6.4 oz Gen: NAD at rest Heart: RRR Lung: decreased breath sounds at the bases Abd: soft, nontender Ext: trace edema CBC, BMP 06/27/16 05:20 06/27/16 05:20 Active Medications Chlorhexidine Gluconate (Hibiclens For Decolonization -) 1 applic TP HS [facility] Last Admin: 06/26/16 22:03 Dose: 1 applic Heparin Sodium (Porcine) (Heparin -) 5,000 unit SQ Q8H-IV ERIN Last Admin: 06/27/16 01:42 Dose: 5,000 unit Levetiracetam (Keppra Injection -) 750 mg IVPB BID [facility] Last Admin: 06/26/16 22:03 Dose: 750 mg Metoprolol Tartrate (Lopressor -) 50 mg PO BID ERIN Last Admin: 06/27/16 09:10 Dose: 50 mg Metoprolol Tartrate (Lopressor Injection -) 5 mg IVPUSH Q4H PRN PRN Reason: HYPERTENSION Last Admin: 06/26/16 10:17 Dose: 5 mg Mupirocin (Bactroban Ointment (For Decolonization) -) 1 applic NS BID ERIN Stop: 06/30/16 09:59 Last Admin: 06/26/16 22:02 Dose: 1 applic Piperacillin Sod/Tazobactam Sod (Zosyn 3.375gm Ivpb (Pre-Docked)) 3.375 gm IVPB Q8H-IV ERIN PRN Reason: Protocol Last Admin: 06/27/16 01:47 Dose: 3.375 gm Valsartan (Diovan -) 160 mg PO DAILY ERIN Last Admin: 06/27/16 09:10 Dose: 160 mg ASSESSMENT AND PLAN: UTI Sepsis Paroxysmal Atrial Fibrillation now in sinus Intracranial Hemorrhage Lung Mass Metastatic Melanoma - continue antibiotics - f/u final cultures - rate/rhythm controlled - hold anticoagulation - BP control - replete lytes - CT chest noncontrast - can monitor on telemetry
[2016-06-27] MEDS ORDERED: predniSONE 20 MG TABLET (UD) PO SCH (14:45)
[2016-06-27] MEDS ORDERED: ACETAMINOPHEN 1000 MG/100 ML VIAL (NON FORMULARY) IVPB PRN (15:16)
[2016-06-27] MEDS: VENLAFAXINE HCL 75 MG E.R. CAPSULES (FP) PO SCH (15:41)
[2016-06-27] MEDS: PANTOPRAZOLE 40 MG TABLET (FP) PO SCH (15:41)
[2016-06-27] MEDS: CARBIDOPA/LEVODOPA 25/100 TABLET (FP) PO SCH ×2 (15:42→23:34)
[2016-06-27] MEDS ORDERED: HALOPERIDOL LACTATE 5 MG/ML IM ONE (15:45)
[2016-06-27 17:26] LABS: CALCIUM 7.5 mg/dL (8.5-10.1); CREATININE 0.6 mg/dL (0.55-1.02); MAGNESIUM 2.2 mg/dL (1.8-2.4)
[2016-06-27] MEDS ORDERED: busPIRone HCL 5 MG TABLET PO SCH (22:00)
--- NOTE | 2016-06-27 23:05 | EKG ---
Test Reason : Blood Pressure : / mmHG Vent. Rate : 131 BPM Atrial Rate : 178 BPM P-R Int : 000 ms QRS Dur : 096 ms QT Int : 282 ms P-R-T Axes : 000 000 203 degrees QTc Int : 416 ms ATRIAL FIBRILLATION WITH RAPID VENTRICULAR RESPONSE ABNORMAL ECG WHEN COMPARED WITH ECG OF 24-JUN-2016 18:18, ATRIAL FIBRILLATION HAS REPLACED SINUS RHYTHM VENT. RATE HAS INCREASED BY 57 BPM Confirmed by BRANDON SANTOS MD ([id number]) on 06/27/2016 11:04:58 PM Referred By: Confirmed By:BRANDON SANTOS MD
[2016-06-27] MEDS: CHLORHEXIDINE GLUCONATE 4% CLEANSER FOR DECOLONIZATION TP SCH (23:33)
[2016-06-27] MEDS: QUEtiapine FUMARATE 25 MG TABLET (FP) PO SCH (23:34)
--- NOTE | 2016-06-28 00:06 | PN ---
Physical Exam: SUBJECTIVE: Patient seen and examined at bedside in ICU. OBJECTIVE: Vital Signs Period Temp Pulse Resp BP Sys/Blake Pulse Ox Last 24 Hr 97.8 F-98.2 F 72-82 16-20 137-175/60-94 100-100 GENERAL/NEURO: The patient is awake. Able to speak single words, rest of speech is unintelligible; LUE weakness 2/5, RUE 4/5 HEAD Normal with no signs of trauma. EYES: PERRL, extraocular movements intact, sclera anicteric, conjunctiva clear. No ptosis. ENT: Ears normal, nares patent, oropharynx clear without exudates, moist mucous membranes. NECK: Trachea midline, full range of motion, supple. LUNGS: Breath sounds equal, clear to auscultation bilaterally, no wheezes, no crackles, no accessory muscle use. HEART: Regular rate and rhythm, S1, S2 without murmur, rub or gallop. ABDOMEN: Soft, nontender, nondistended, normoactive bowel sounds, no guarding, no rebound, no hepatosplenomegaly, no masses. UPPER EXTREMITIES: 1+ bilateral edema, warm, well-perfused, 2+ pulses LOWER EXTREMITIES: 2+ left pedal edema; warm, well-perfused, 2+ pulses Laboratory Results - last 24 hr 06/27/16 06/27/16 06/27/16 00:46 05:20 05:20 WBC 14.4 H RBC 3.92 Hgb 11.4 Hct 33.2 MCV 84.7 MCHC 34.4 RDW 18.0 H Plt Count 106 L MPV 9.0 Sodium 141 Potassium 2.7 L* D Chloride 101 Carbon Dioxide 27 Anion Gap 13 BUN 9 D Creatinine 0.6 D Creat Clearance w eGFR > 60 POC Glucometer 117.49251 Random Glucose 86 Calcium 7.3 L Magnesium Total Bilirubin 2.1 H AST 12 L ALT 14 Alkaline Phosphatase 59 Total Protein 4.5 L Albumin 2.5 L 06/27/16 06/27/16 06/27/16 13:19 15:54 16:00 WBC RBC Hgb Hct MCV MCHC RDW Plt Count MPV Sodium 140 Potassium 3.0 L Chloride 100 Carbon Dioxide 22 Anion Gap 18 H BUN 9 Creatinine 0.6 Creat Clearance w eGFR POC Glucometer 119.38924 137.54139 Random Glucose 113 H D Calcium 7.5 L Magnesium 2.2 D Total Bilirubin AST ALT Alkaline Phosphatase Total Protein Albumin Active Medications Generic Name Dose Route Start Last Admin Trade Name Freq PRN Reason Stop Dose Admin Acetaminophen 1,000 mg 06/27/16 15:16 06/27/16 16:10 Ofirmev Injection - IVPB 06/28/16 09:17 1,000 mg Q6H PRN Administration FEVER OR PAIN Buspirone HCl mg 06/27/16 22:00 Buspar - PO BID [facility] Carbidopa/Levodopa 1 each 06/27/16 14:45 06/27/16 23:34 Sinemet 25/100 - PO Not Given TID [facility] Chlorhexidine Gluconate 1 applic 06/25/16 22:00 06/27/16 23:33 Hibiclens For Decolonization - TP 1 applic HS ERIN Administration Levetiracetam 750 mg 06/25/16 10:00 06/27/16 23:33 Keppra Injection - IVPB 750 mg BID ERIN Administration Metoprolol Tartrate 5 mg 06/26/16 10:12 06/26/16 10:17 Lopressor Injection - IVPUSH 5 mg Q4H PRN Administration HYPERTENSION Metoprolol Tartrate 50 mg 06/27/16 22:00 06/27/16 23:33 Lopressor - PO Not Given BID [facility] Mupirocin 1 applic 06/25/16 10:00 06/27/16 23:32 Bactroban Ointment (For Decolonization) - NS 06/30/16 09:59 1 applic BID ERIN Administration Pantoprazole Sodium 40 mg 06/27/16 14:45 06/27/16 15:41 Protonix - PO Not Given DAILY [facility] Piperacillin Sod/Tazobactam Sod 3.375 gm 06/25/16 11:30 06/27/16 18:46 Zosyn 3.375gm Ivpb (Pre-Docked) IVPB 3.375 gm Q8H-IV ERIN Administration Protocol Prednisone mg 06/27/16 14:45 Deltasone - PO DAILY [facility] Quetiapine Fumarate 25 mg 06/27/16 22:00 06/27/16 23:34 Seroquel - PO Not Given HS ERIN Valsartan 160 mg 06/26/16 20:00 06/27/16 09:10 Diovan - PO 160 mg DAILY ERIN Administration Venlafaxine HCl 150 mg 06/27/16 14:45 06/27/16 15:41 Effexor Xr - PO Not Given DAILY ERIN ASSESSMENT & PLAN 80 year-old woman with a PMH of HTN, Parkinson's disease, metastatic malignant melanoma, multiple joint replacements, admitted for parenchymal temporal lobe acute/subacute hemorrhage. Acute/subacute intracranial hemorrhage --serial CT scans show no change from original 2cm area of hemorrhage --continue Keppra for seizure prophylaxis Paroxysmal atrial fibrillation with RVR --blood pressure low so unable to give beta shahab --no anti-coagulation now, but will have to consider for intermediate accountant given pAF and malignancy Hypertension --hold anti-hypertensives Metastatic melanoma --large 8.1cm L x 7.5cm W x 8.8cm AP [place] mass inseparable from pleura, aorta , mediastinum --obtain previous workup F/E/N Fluids: PO intake adequate Electrolytes: replete as indicated Nutrition: dysphagia puree, nectar thick DVT prophylaxis: hold chemical prophylaxis due to ICH; SCDs Rehab PT evaluation/daily PT Dispo: continues to require ICU level care. Visit type - Emergency Visit Emergency Visit: Yes ED Registration Date: 06/24/16 Care time: The patient presented to the Emergency Department on the above date and was hospitalized for further evaluation of their emergent condition. - New Patient This patient is new to me today: Yes Date on this admission: 06/29/16 - Critical Care Critical Care patient: Yes Total Critical Care Time (in minutes): 35 Critical Care Statement: The care of this patient involved high complexity decision making to prevent further life threatening deterioration of the patient 's condition and/or to evalute & treat vital organ system(s) failure or risk of failure.
[2016-06-28] MEDS: PIPERACILLIN/TAZOB 3.375 GM/50 ML PRE-DOCKED IVPB SCH ×3 (03:00→18:11)
[2016-06-28] MEDS: CARBIDOPA/LEVODOPA 25/100 TABLET (FP) PO SCH ×3 (06:19→21:58)
[2016-06-28 08:35] LABS: MCH 28.6 pg (25.7-33.7); MCHC 33.3 g/dl (32.0-36.0); MEAN CELL VOLUME 85.7 fl (80-96); MEAN PLT VOLUME 8.3 fl (7.5-11.1); PLATELET COUNT 104 K/MM3 (134-434); RDW 18.5 % (11.6-15.6); WHITE BLOOD COUNT 15.1 K/mm3 (4.0-10.0)
[2016-06-28 09:02] LABS: ALBUMIN 2.3 g/dl (3.4-5.0); ALK PHOS 61 U/L (45-117); ANION GAP 15 (8-16); BILIRUBIN,TOTAL 1.8 mg/dL (0.2-1.0); CALCIUM 7.8 mg/dL (8.5-10.1); CO2 21 mmol/L (21-32); CREATININE 0.7 mg/dL (0.55-1.02); GLUCOSE,RANDOM 93 mg/dL (74-106); MAGNESIUM 2.2 mg/dL (1.8-2.4); PHOSPHOROUS 1.8 mg/dL (2.5-4.9); SGOT/AST 12 U/L (15-37); SGPT/ALT 17 U/L (12-78); TOT PROT 4.7 g/dl (6.4-8.2)
[2016-06-28] MEDS ORDERED: METOPROLOL TARTRATE 5 MG/5 ML VIAL ONE ×2 (09:17→09:23)
[2016-06-28] MEDS ORDERED: AMIODARONE HCL 150 MG/3 ML VIAL ONE (09:32)
[2016-06-28] MEDS: VALSARTAN 160 MG TABLET (UD) PO SCH (10:46)
[2016-06-28] MEDS: VENLAFAXINE HCL 75 MG E.R. CAPSULES (FP) PO SCH (10:46)
--- NOTE | 2016-06-28 10:47 | PN ---
Progress Note (short form) - Note Progress Note: alert talking back in afib Vital Signs Period Temp Pulse Resp BP Sys/Blake Pulse Ox Last 24 Hr 97.2 F-98 F 73-89 16-22 120-170/52-94 100-100 cor-rrr lungs decreased bs at bases abd soft,nt ext +edema CBC, BMP 06/28/16 07:45 06/28/16 07:45 cxray RUL mass Current Medications Buspirone HCl (Buspar -) mg PO BID [facility] Carbidopa/Levodopa (Sinemet 25/100 -) 1 each PO TID [facility] Last Admin: 06/28/16 06:19 Dose: Not Given Chlorhexidine Gluconate (Hibiclens For Decolonization -) 1 applic TP HS [facility] Last Admin: 06/27/16 23:33 Dose: 1 applic Levetiracetam (Keppra Injection -) 750 mg IVPB BID [facility] Last Admin: 06/27/16 23:33 Dose: 750 mg Metoprolol Tartrate (Lopressor Injection -) 5 mg IVPUSH Q4H PRN PRN Reason: HYPERTENSION Last Admin: 06/26/16 10:17 Dose: 5 mg Metoprolol Tartrate (Lopressor -) 50 mg PO BID [facility] Last Admin: 06/27/16 23:33 Dose: Not Given Mupirocin (Bactroban Ointment (For Decolonization) -) 1 applic NS BID [facility] Stop: 06/30/16 09:59 Last Admin: 06/27/16 23:32 Dose: 1 applic Pantoprazole Sodium (Protonix -) 40 mg PO DAILY [facility] Last Admin: 06/27/16 15:41 Dose: Not Given Piperacillin Sod/Tazobactam Sod (Zosyn 3.375gm Ivpb (Pre-Docked)) 3.375 gm IVPB Q8H-IV ERIN PRN Reason: Protocol Last Admin: 06/28/16 03:00 Dose: 3.375 gm Prednisone (Deltasone -) mg PO DAILY [facility] Quetiapine Fumarate (Seroquel -) 25 mg PO HS [facility] Last Admin: 06/27/16 23:34 Dose: Not Given Valsartan (Diovan -) 160 mg PO DAILY [facility] Last Admin: 06/27/16 09:10 Dose: 160 mg Venlafaxine HCl (Effexor Xr -) 150 mg PO DAILY ERIN Last Admin: 06/27/16 15:41 Dose: Not Given a/p s/p head of integrated media bleed, on seizure prophylaxis UTI- continue zosyn, repeat ua and urine culture, contact isolation for esbl lung mass-prior biopsy melanoma parkinsons disease afib history ESBL organisms- continue contact isolation f/u ct scans of head and chest today continue zosyn for now, no positive blood cultures for esbl ecoli ?pneumonia- will await chest ct Problem List - Problems (1) ICH (intracerebral hemorrhage) Code(s): I61.9 - NONTRAUMATIC INTRACEREBRAL HEMORRHAGE, UNSPECIFIED Qualifiers : Intracerebral hemorrhage etiology: nontraumatic Cerebral hemorrhage location: unspecified cerebral location (2) UTI (urinary tract infection) Code(s): N39.0 - URINARY TRACT INFECTION, SITE NOT SPECIFIED Qualifiers: Urinary tract infection type: site unspecified Hematuria presence: without hematuria Qualified Code(s): N39.0 - Urinary tract infection, site not specified (3) Lung mass Code(s): R91.8 - OTHER NONSPECIFIC ABNORMAL FINDING OF LUNG FIELD
[2016-06-28] MEDS: levETIRAcetam 500 MG/5 ML INJECTION VIAL IVPB SCH ×2 (10:50→22:01)
[2016-06-28] MEDS: METOPROLOL TARTRATE 50 MG TABLET (FP) PO SCH (10:51)
[2016-06-28] MEDS: MUPIROCIN 2% TOPICAL OINTMENT FOR DECOLONIZATION NS SCH ×2 (10:57→22:00)
--- NOTE | 2016-06-28 11:55 | PN ---
Teaching Attending Note Name of Resident: Oscar Pavon ATTENDING PHYSICIAN STATEMENT I saw and evaluated the patient. I reviewed the resident's note and discussed the case with the resident. I agree with the resident's findings and plan as documented. SUBJECTIVE: Pt seen and examined in the ICU. More somnolent today. Sent for repeat CT head which did not show any change in the intracranial bleed. Episode of rapid atrial fibrillation this AM which converted back to sinus with lopressor pushes x 3. OBJECTIVE: Last Vital Signs Temp Pulse Resp BP Pulse Ox 97.6 F 75 20 132/59 98 06/28/16 10:00 06/28/16 10:00 06/28/16 10:00 06/28/16 10:00 06/28/16 09:46 Intake & Output 06/25/16 06/26/16 06/27/16 06/28/16 23:59 23:59 23:59 23:59 Intake Total 1583.0 349.6 950 100 Output Total 1600 1800 1350 300 Balance -17.0 -1450.4 -400 -200 Weight 196 lb 191 lb 188 lb 6.4 oz 191 lb 5.78 oz Gen: more lethargic Heart: RRR Lung: scattered rhonchi Abd: soft, nontender Ext: + edema CBC, BMP 06/28/16 07:45 06/28/16 07:45 Active Medications Buspirone HCl (Buspar -) mg PO BID [facility] Carbidopa/Levodopa (Sinemet 25/100 -) 1 each PO TID [facility] Last Admin: 06/28/16 06:19 Dose: Not Given Chlorhexidine Gluconate (Hibiclens For Decolonization -) 1 applic TP HS [facility] Last Admin: 06/27/16 23:33 Dose: 1 applic Enalaprilat (Vasotec Injection -) 1.25 mg IVPB Q6H-IV [facility] Pantoprazole Sodium (Protonix 40mg Ivpb (Pre-Docked)) 100 mls @ 200 mls/hr IVPB DAILY [facility] Potassium Phosphate 30 mm/ (Dextrose) 260 mls @ 62.5 mls/hr IVPB ONCE ONE Stop: 06/28/16 15:49 Levetiracetam (Keppra Injection -) 750 mg IVPB BID [facility] Last Admin: 06/28/16 10:50 Dose: 750 mg Metoprolol Tartrate (Lopressor Injection -) 5 mg IVPUSH Q4H PRN PRN Reason: HYPERTENSION Last Admin: 06/26/16 10:17 Dose: 5 mg Metoprolol Tartrate (Lopressor -) 50 mg PO BID [facility] Last Admin: 06/28/16 10:51 Dose: Not Given Metoprolol Tartrate (Lopressor Injection -) 5 mg IVPUSH Q6H [facility] Mupirocin (Bactroban Ointment (For Decolonization) -) 1 applic NS BID [facility] Stop: 06/30/16 09:59 Last Admin: 06/28/16 10:57 Dose: 1 applic Pantoprazole Sodium (Protonix -) 40 mg PO DAILY [facility] Last Admin: 06/27/16 15:41 Dose: Not Given Piperacillin Sod/Tazobactam Sod (Zosyn 3.375gm Ivpb (Pre-Docked)) 3.375 gm IVPB Q8H-IV [facility] PRN Reason: Protocol Last Admin: 06/28/16 10:57 Dose: 3.375 gm Prednisone (Deltasone -) mg PO DAILY [facility] Quetiapine Fumarate (Seroquel -) 25 mg PO HS [facility] Last Admin: 06/27/16 23:34 Dose: Not Given Valsartan (Diovan -) 160 mg PO DAILY [facility] Last Admin: 06/28/16 10:46 Dose: Not Given Venlafaxine HCl (Effexor Xr -) 150 mg PO DAILY [facility] Last Admin: 06/28/16 10:46 Dose: Not Given ASSESSMENT AND PLAN: Altered Mental Status UTI Sepsis Paroxysmal Atrial Fibrillation with RVR now in sinus Intracranial Hemorrhage Lung Mass/Metastatic Melanoma - continue antibiotics - standing lopressor - hold anticoagulation - BP control - replete lytes, keep K >4, Mg >2 - aspiration precautions - DVT prophylaxis - continue ICU monitoring
[2016-06-28] MEDS: METOPROLOL TARTRATE 5 MG/5 ML VIAL IVPUSH SCH ×2 (12:00→17:00)
[2016-06-28] MEDS: ENALAPRILAT DIHYDRATE 1.25 MG/1 ML VIAL IVPB SCH ×3 (12:00→22:01)
--- NOTE | 2016-06-28 12:04 | PN ---
Progress Note (short form) - Note Progress Note: CC: afib S: episode of rvr this morning with conversion to sr after lopressor IV x 3. currently in sr. Po lopressor had been held in setting of lethargy. lethargic, unable to get ros. Active Medications Buspirone HCl (Buspar -) mg PO BID [facility] Carbidopa/Levodopa (Sinemet 25/100 -) 1 each PO TID [facility] Last Admin: 06/28/16 06:19 Dose: Not Given Chlorhexidine Gluconate (Hibiclens For Decolonization -) 1 applic TP HS [facility] Last Admin: 06/27/16 23:33 Dose: 1 applic Enalaprilat (Vasotec Injection -) 1.25 mg IVPB Q6H-IV [facility] Pantoprazole Sodium (Protonix 40mg Ivpb (Pre-Docked)) 100 mls @ 200 mls/hr IVPB DAILY [facility] Potassium Phosphate 30 mm/ (Dextrose) 260 mls @ 62.5 mls/hr IVPB ONCE ONE Stop: 06/28/16 15:49 Levetiracetam (Keppra Injection -) 750 mg IVPB BID [facility] Last Admin: 06/28/16 10:50 Dose: 750 mg Metoprolol Tartrate (Lopressor Injection -) 5 mg IVPUSH Q4H PRN PRN Reason: HYPERTENSION Last Admin: 06/26/16 10:17 Dose: 5 mg Metoprolol Tartrate (Lopressor -) 50 mg PO BID [facility] Last Admin: 06/28/16 10:51 Dose: Not Given Metoprolol Tartrate (Lopressor Injection -) 5 mg IVPUSH Q6H [facility] Mupirocin (Bactroban Ointment (For Decolonization) -) 1 applic NS BID [facility] Stop: 06/30/16 09:59 Last Admin: 06/28/16 10:57 Dose: 1 applic Pantoprazole Sodium (Protonix -) 40 mg PO DAILY [facility] Last Admin: 06/27/16 15:41 Dose: Not Given Piperacillin Sod/Tazobactam Sod (Zosyn 3.375gm Ivpb (Pre-Docked)) 3.375 gm IVPB Q8H-IV [facility] PRN Reason: Protocol Last Admin: 06/28/16 10:57 Dose: 3.375 gm Prednisone (Deltasone -) mg PO DAILY [facility] Quetiapine Fumarate (Seroquel -) 25 mg PO HS [facility] Last Admin: 06/27/16 23:34 Dose: Not Given Valsartan (Diovan -) 160 mg PO DAILY [facility] Last Admin: 06/28/16 10:46 Dose: Not Given Venlafaxine HCl (Effexor Xr -) 150 mg PO DAILY [facility] Last Admin: 06/28/16 10:46 Dose: Not Given Vital Signs Period Temp Pulse Resp BP Sys/Blake Pulse Ox Last 24 Hr 97.2 F-98 F 67-89 16-22 120-170/52-94 98-100 Intake & Output 06/26/16 06/27/16 06/28/16 06/29/16 07:59 07:59 07:59 07:59 Intake Total 466.0 200 1000 Output Total 1400 1900 950 Balance -934.0 -1700 50 Weight 191 lb 188 lb 6.4 oz 191 lb 5.78 oz Constitutional: Yes: Well Nourished, No Distress Eyes: No: Sclera Icterus HENT: No: Nasal Congestion Neck: No: Decreased ROM Respiratory: Yes: CTA Bilaterally (anteriorly (not deep breaths)). No: Accessory Muscle Use, Rales, Wheezes Gastrointestinal: Yes: Normal Bowel Sounds. No: Distention, Hepatomegaly, Palpable Mass, Tenderness Cardiovascular: Yes: Regular Rate and Rhythm JVD: No Carotid Bruit: No PMI: Non-Displaced Heart Sounds: Yes: S1, S2. No: Gallop Murmur: No: Systolic Murmur, Diastolic Murmur Musculoskeletal: Yes: Other (No kyphosis) Extremities: No: Cold, Cyanosis Edema: Yes (mild pedal edema) Peripheral Pulses: 2+ Left Carotid, 2+ Right Carotid, 2+ Left Doralis Pedis, 2+ Right Dorsalis Pedis Integumentary: No: Jaundice Neurological: Yes: Lethargy. No: Seizure Psychiatric: No: Agitated - Other Data Labs, Other Data: CBC, BMP 06/28/16 07:45 06/28/16 07:45 Laboratory Tests 06/27/16 06/28/16 05:20 07:45 Magnesium 2.2 Total Bilirubin 2.1 H 1.8 H AST 12 L ALT 17 D Alkaline Phosphatase 61 Albumin 2.3 L ekg 3/13: rapid AF, diffuse ST-Ts (changed vs 2014 prior) ekg #2 06/24: NSR, ST-Ts persist, though improved tele: NSR with occ pac's. episode of afib with RVR (HR up to 180's). Occasional PVC's, couplets. --> currently in SR echo: nl lv size/fn. nl rv size, no mention of fn. impaired LV relaxation. 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 As per neurosurgery, no acute intervention. - subsequent head CT stable. Imaging - Results Chest X-ray: Report Reviewed ([place] mass unchanged) Assessment/Plan MPI 08/2014 (persantine): no STs; "small subtle apical reversible defect suggestive of mild ischemia"; nl EF 80 year old woman, history of HTN, pafib, dementia, parkinsons disease, GERD, lung mass, depression, bilateral hip replacement, presented to ED for altered mental status for one day and found to have Acute-subacute embolic hemorrhagic stroke, UTI and afib. acute temporal lobe hemorrhage: -bp control to target sbp <160 per neuro -no AC or anti-plt's at present, per neuro -neurosurgery following (conservative mgmt) paroxysmal afib: -rapid PAF on 06/06 and 06/28 -currently in sinus on tele. Recurrence of rvr in setting of holding po metoprolol 2/2 lethargy, no on standing IV dosing. con't to monitor for recurrence. -CHADS-VASC 4 (vs 5?...if cad) -no AC until cleared by neuro -? if the ICH was due to acute embolic CVA--neuro notes not suggesting this but possibility raised by neuro surgery--h/o metastatic malignant melanoma noted HTN: -mgmt as disc'd -currently controlled -cont diovan, metoprolol -if continues to spike temporarily to >160 will add amlodipine ? CAD: -"small, subtle" apical defect suggestive of ischemia on 2014 nuclear here -not followed by cardio in our office -no acute tx changes at the moment in any event -outpt cardio f/u once stable neurologically -trop x 2 here unremarkable echo with density on mitral valve - Patient here with UTI, but no evidence of bacteremia. Lesion likely secondary to MAC, but will have to review images. - consider repeat blood cultures if ID has clinical suspicion for endocarditis. metastatic melanoma (to lungs): -per onc, pmd hypokalemia: -repletion ordered -f/u labs thrombocytopenia: -per pmd, critical care Neuro recommending: -blood pressure control, SBP less than 160 -no anti platelet, or AC at this time -Keppra for sz prophylaxis -Once medically stable, MRI brain without contrast for further characterization given history of melanoma -Encephalopathy, likely metabolic, for EEG to rule out seizure cct: > 35 min.
[2016-06-28] MEDS ORDERED: METOPROLOL TARTRATE 5 MG/5 ML VIAL IVPUSH PRN ×2 (12:41→15:27)
[2016-06-28] MEDS: PANTOPRAZOLE SODIUM 100 ML IVPB SCH (13:00)
--- NOTE | 2016-06-28 14:13 | CONSULT ---
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, Parkinson's Cardiovascular: Yes: HTN, Other (Unclear if A-fib) Pulmonary: Yes: Other (Lung mass) Gastrointestinal: Yes: GERD Heme/Onc: Yes: Other (Lung Mass) Psych: Yes: Depression Musculoskeletal: Yes: Other (Knee and hip replacements) - Past Surgical History Past Surgical History: Yes: Joint Replacement - Smoking History Smoking history: Never smoked Have you smoked in the past 12 months: No Aproximately how many cigarettes per day: 0 If you are a former smoker, when did you quit?: 0 - Alcohol/Substance Use Hx Alcohol Use: No History - Admission Reason For Visit: INTERCEREBAL HEMORRHAGE/UTI/ATRIAL FIBR - Hearing Hearing Aide: (Unable to assess,altered) Speech Evaluation - Communication Primary Language: [place]
[2016-06-28] MEDS ORDERED: POTASSIUM PHOSPHATE 30 MM in DEXTROSE 5%-WATER - 250 ML IVPB ONE ×3 (14:30→16:30)
[2016-06-28] MEDS ORDERED: FUROSEMIDE 40 MG/4 ML INJECTABLE VIAL IVPUSH ONE (14:30)
[2016-06-28] MEDS ORDERED: MIDAZOLAM HCL 2 MG/2 ML SINGLE DOSE VIAL ONE (14:43)
--- NOTE | 2016-06-28 15:01 | PN ---
Physical Exam: SUBJECTIVE: Patient seen and examined Pt is more lethargic as per nurse, but easily arousable and follow simple commands, denies cp,palpitations. OBJECTIVE: Vital Signs Period Temp Pulse Resp BP Sys/Blake Pulse Ox Last 24 Hr 97.2 F-97.6 F 67-89 16-22 120-170/52-94 98-100 GENERAL: The patient is awake, alert, and fully oriented, in no acute distress. HEAD: Normal with no signs of trauma. EYES: PERRL, extraocular movements intact, sclera anicteric, conjunctiva clear. No ptosis. ENT: Ears normal, nares patent, oropharynx clear without exudates, moist mucous membranes. NECK: Trachea midline, full range of motion, supple. LUNGS: Breath sounds diminished, no wheezes, no crackles, no accessory muscle use. HEART: Regular rate and rhythm, S1, S2 without murmur, rub or gallop. ABDOMEN: Soft, nontender, nondistended, normoactive bowel sounds, no guarding, no rebound, no hepatosplenomegaly, no masses. EXTREMITIES: 2+ pulses, warm, well-perfused, edema 2+ upper extremities and LLE , 1+ RLE NEUROLOGICAL: Cranial nerves II through XII grossly intact. Normal speech, gait not observed. PSYCH: Normal mood, normal affect. SKIN: Warm, dry, normal turgor, no rashes or lesions noted,ecchymosis upper arms Laboratory Results - last 24 hr 06/27/16 06/27/16 06/28/16 15:54 16:00 07:45 WBC 15.1 H RBC 4.08 Hgb 11.7 Hct 35.0 MCV 85.7 MCHC 33.3 RDW 18.5 H Plt Count 104 L MPV 8.3 Sodium 140 Potassium 3.0 L Chloride 100 Carbon Dioxide 22 Anion Gap 18 H BUN 9 Creatinine 0.6 Creat Clearance w eGFR POC Glucometer [id number] Random Glucose 113 H D Calcium 7.5 L Phosphorus Magnesium 2.2 D Total Bilirubin AST ALT Alkaline Phosphatase Total Protein Albumin 06/28/16 07:45 WBC RBC Hgb Hct MCV MCHC RDW Plt Count MPV Sodium 141 Potassium 3.6 Chloride 105 Carbon Dioxide 21 Anion Gap 15 BUN 14 D Creatinine 0.7 Creat Clearance w eGFR > 60 POC Glucometer Random Glucose 93 Calcium 7.8 L Phosphorus 1.8 L Magnesium 2.2 Total Bilirubin 1.8 H AST 12 L ALT 17 D Alkaline Phosphatase 61 Total Protein 4.7 L Albumin 2.3 L Active Medications Generic Name Dose Route Start Last Admin Trade Name Freq PRN Reason Stop Dose Admin Buspirone HCl mg 06/27/16 22:00 Buspar - PO BID [facility] Carbidopa/Levodopa 1 each 06/27/16 14:45 06/28/16 06:19 Sinemet 25/100 - PO Not Given TID [facility] Chlorhexidine Gluconate 1 applic 06/25/16 22:00 06/27/16 23:33 Hibiclens For Decolonization - TP 1 applic HS [facility] Administration Enalaprilat 1.25 mg 06/28/16 11:45 Vasotec Injection - IVPB Q6H-IV [facility] Pantoprazole Sodium 100 mls @ 200 mls/hr 06/28/16 11:15 Protonix 40mg Ivpb (Pre-Docked) IVPB DAILY [facility] Potassium Phosphate 30 mm/ 260 mls @ 62.5 mls/hr 06/28/16 14:30 Dextrose IVPB 06/28/16 18:39 ONCE ONE Levetiracetam 750 mg 06/25/16 10:00 06/28/16 10:50 Keppra Injection - IVPB 750 mg BID [facility] Administration Metoprolol Tartrate 50 mg 06/27/16 22:00 06/28/16 10:51 Lopressor - PO Not Given BID [facility] Metoprolol Tartrate 5 mg 06/28/16 11:45 Lopressor Injection - IVPUSH Q6H [facility] Metoprolol Tartrate 5 mg 06/28/16 12:41 Lopressor Injection - IVPUSH Q4H PRN HYPERTENSION Mupirocin 1 applic 06/25/16 10:00 06/28/16 10:57 Bactroban Ointment (For Decolonization) - NS 06/30/16 09:59 1 applic BID [facility] Administration Pantoprazole Sodium 40 mg 06/27/16 14:45 06/27/16 15:41 Protonix - PO Not Given DAILY [facility] Piperacillin Sod/Tazobactam Sod 3.375 gm 06/25/16 11:30 06/28/16 10:57 Zosyn 3.375gm Ivpb (Pre-Docked) IVPB 3.375 gm Q8H-IV [facility] Administration Protocol Prednisone mg 06/27/16 14:45 Deltasone - PO DAILY [facility] Quetiapine Fumarate 25 mg 06/27/16 22:00 06/27/16 23:34 Seroquel - PO Not Given HS [facility] Valsartan 160 mg 06/26/16 20:00 06/28/16 10:46 Diovan - PO Not Given DAILY [facility] Venlafaxine HCl 150 mg 06/27/16 14:45 06/28/16 10:46 Effexor Xr - PO Not Given DAILY [facility] CT chest: Large left upper lobe mass inseparable from the pleura, mediastinum and aorta. There has been a significant increase in size since the prior exam. There is also a nodule anterior to the anterior margin the right hemidiaphragm which will need follow-up. There are small pleural effusions, left greater than right. There are mildly prominent nodes in the mediastinum and prominent hilar nodes which are difficult to exactly measure due to lack of IV contrast. No obvious metastatic lesions identified in the bone or upper abdomen. ASSESSMENT/PLAN: This is an 80 year old woman, history of HTN, pafib, dementia, parkinsons disease, GERD, lung mass, depression, bilateral hip replacement, presented to ED for altered mental status for one day and found to have Acute-subacute embolic hemorrhagic stroke, UTI and afib. * Sepsis 2/2 complicated UTI,h/o ESBL -Culture grew ESBL and sensitive to zosyn - Cont. zosyn day #4, afebrile, leukocytosis level trending down from 20>15.1, afebrile - Cont. 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 keppra 750mg BID - Maintain SBP < 160, DBP < 90 - RPT CT head today ,no change -Lopressor PRN for BP control - No anti-coagulation or NSAID for 1 month - CBC stable - neuro sx following * Hx of paroxysmal afib - Episode of rapid atrial fibrillation this AM,converted to SR after Lopressor IVP - now HR SR In 80's - cardiology following -No anti-coagulation or NSAID for 1 month due to intracranial bleed - cardiology following *Lung mass-Metastatic Melanoma - CT chest as mentioned above - F/u as outpatient * Hypokalemia - resolved - s/p replacement * HTN- stable - will cont on home meds *Low PLT - will f/u on CBC *FEN: Low Phosphorus - replaced Replace electrolyte as needed - will hold off IVF in view of pleural effusion and monitor * DVT Prophylaxis : SCD use , no AC in view of intracranial bleed Visit type - Emergency Visit Emergency Visit: Yes ED Registration Date: 06/24/16 Care time: The patient presented to the Emergency Department on the above date and was hospitalized for further evaluation of their emergent condition. - New Patient This patient is new to me today: Yes Date on this admission: 06/28/16 - Critical Care Critical Care patient: Yes Total Critical Care Time (in minutes): 35 Critical Care Statement: The care of this patient involved high complexity decision making to prevent further life threatening deterioration of the patient 's condition and/or to evalute & treat vital organ system(s) failure or risk of failure. - Discharge Referral Referred to [facility] Med [facility] No
[2016-06-28] MEDS ORDERED: AMIODARONE HCL 150 MG/3 ML VIAL IVPUSH ONE (15:26)
[2016-06-28] MEDS ORDERED: MIDAZOLAM HCL 2 MG/2 ML SINGLE DOSE VIAL IM ONE (15:34)
--- NOTE | 2016-06-28 15:53 | PROC ---
<Oscar Pavon - Last Filed: 06/28/16 15:52> Central Line Insertion Indication: Poor Venous Access Risks and Benefits Explained: Yes Consent on Chart: Yes Central Line: Triple Lumen Catheter Anesthesia: 1% Lidocaine Sterile Technique: Yes Ultrasound Guided Assistance: Yes Position: Left Internal Jugular Post Insertion: Yes: Bilateral Breath Sounds, Chest X-Ray Ordered Sterile Dressing Applied: Yes <Luis Broussard MD - Last Filed: 06/29/16 15:40> Procedure Note Procedure: I supervised and was present during the entire procedure. Luis Broussard MD
--- NOTE | 2016-06-28 16:14 | PN ---
Physical Exam: SUBJECTIVE: Patient seen and examined at bedside in the ICU. She appears weaker today and more lethargic to answer question or follow commands. Per nurse, no acute event overnight. OBJECTIVE: LIJ inserted due to poor venous access, day 1 Vital Signs Period Temp Pulse Resp BP Sys/Blake Pulse Ox Last 24 Hr 97.2 F-97.8 F 67-89 16-22 98-170/50-94 98-100 GENERAL: More confused and sleepy, awake upon sternal rub and speech is more garbled HEAD: AT, NC EYES: Pupils equal, round and reactive to light, sclera anicteric, conjunctiva clear ENT: oropharynx clear without exudates LUNGS: CTAB HEART: RRR, S1 and S2, no murmur or rub ABDOMEN: +bs, soft, non-tender EXTREMITIES: +1 edema. CBCD WBC 15.1 K/mm3 (4.0-10.0) H 06/28/16 07:45 RBC 4.08 M/mm3 (3.60-5.2) 06/28/16 07:45 Hgb 11.7 GM/dL (10.7-15.3) 06/28/16 07:45 Hct 35.0 % (32.4-45.2) 06/28/16 07:45 MCV 85.7 fl (80-96) 06/28/16 07:45 MCHC 33.3 g/dl (32.0-36.0) 06/28/16 07:45 RDW 18.5 % (11.6-15.6) H 06/28/16 07:45 Plt Count 104 K/MM3 (134-434) L 06/28/16 07:45 MPV 8.3 fl (7.5-11.1) 06/28/16 07:45 CMP Sodium 141 mmol/L (136-145) 06/28/16 07:45 Potassium 3.6 mmol/L (3.5-5.1) 06/28/16 07:45 Chloride 105 mmol/L (98-107) 06/28/16 07:45 Carbon Dioxide 21 mmol/L (21-32) 06/28/16 07:45 Anion Gap 15 (8-16) 06/28/16 07:45 BUN 14 mg/dL (7-18) D 06/28/16 07:45 Creatinine 0.7 mg/dL (0.55-1.02) 06/28/16 07:45 Creat Clearance w eGFR > 60 (>60) 06/28/16 07:45 Calcium 7.8 mg/dL (8.5-10.1) L 06/28/16 07:45 Total Bilirubin 1.8 mg/dL (0.2-1.0) H 06/28/16 07:45 AST 12 U/L (15-37) L 06/28/16 07:45 ALT 17 U/L (12-78) D 06/28/16 07:45 Alkaline Phosphatase 61 U/L (45-117) 06/28/16 07:45 Total Protein 4.7 g/dl (6.4-8.2) L 06/28/16 07:45 Albumin 2.3 g/dl (3.4-5.0) L 06/28/16 07:45 Intake & Output 06/25/16 06/26/16 06/27/16 06/28/16 23:59 23:59 23:59 23:59 Intake Total 1583.0 349.6 950 100 Output Total 1600 1800 1350 300 Balance -17.0 -1450.4 -400 -200 Weight 88.904 kg 86.636 kg 85.457 kg 86.8 kg Active Medications Generic Name Dose Route Start Last Admin Trade Name Calq PRN Reason Stop Dose Admin Amiodarone HCl 150 mg 06/28/16 15:26 Cordarone Injection - IVPUSH 06/28/16 15:27 ONCE ONE Buspirone HCl mg 06/27/16 22:00 Buspar - PO BID ERIN Carbidopa/Levodopa 1 each 06/27/16 14:45 06/28/16 06:19 Sinemet 25/100 - PO Not Given TID ERIN Chlorhexidine Gluconate 1 applic 06/25/16 22:00 06/27/16 23:33 Hibiclens For Decolonization - TP 1 applic HS ERIN Administration Enalaprilat 1.25 mg 06/28/16 11:45 Vasotec Injection - IVPB Q6H-IV ERIN Pantoprazole Sodium 100 mls @ 200 mls/hr 06/28/16 11:15 Protonix 40mg Ivpb (Pre-Docked) IVPB DAILY ERIN Potassium Phosphate 30 mm/ 260 mls @ 62.5 mls/hr 06/28/16 14:30 Dextrose IVPB 06/28/16 18:39 ONCE ONE Potassium Phosphate 30 mm/ 260 mls @ 62.5 mls/hr 06/28/16 15:37 Dextrose IVPB 06/28/16 19:46 ONCE ONE Levetiracetam 750 mg 06/25/16 10:00 06/28/16 10:50 Keppra Injection - IVPB 750 mg BID ERIN Administration Metoprolol Tartrate 50 mg 06/27/16 22:00 06/28/16 10:51 Lopressor - PO Not Given BID ERNI Metoprolol Tartrate 5 mg 06/28/16 11:45 Lopressor Injection - IVPUSH Q6H ERIN Metoprolol Tartrate 5 mg 06/28/16 12:41 Lopressor Injection - IVPUSH Q4H PRN HYPERTENSION Metoprolol Tartrate 5 mg 06/28/16 15:27 Lopressor Injection - IVPUSH 06/28/16 15:58 Q15M PRN HYPERTENSION Midazolam HCl 2 mg 06/28/16 15:34 Versed - IM 06/28/16 15:35 ONCE ONE Mupirocin 1 applic 06/25/16 10:00 06/28/16 10:57 Bactroban Ointment (For Decolonization) - NS 06/30/16 09:59 1 applic BID ERIN Administration Piperacillin Sod/Tazobactam Sod 3.375 gm 06/25/16 11:30 06/28/16 10:57 Zosyn 3.375gm Ivpb (Pre-Docked) IVPB 3.375 gm Q8H-IV ERIN Administration Protocol Prednisone mg 06/27/16 14:45 Deltasone - PO DAILY [facility] Quetiapine Fumarate 25 mg 06/27/16 22:00 06/27/16 23:34 Seroquel - PO Not Given [facility] Valsartan 160 mg 06/26/16 20:00 06/28/16 10:46 Diovan - PO Not Given DAILY ERIN Venlafaxine HCl 150 mg 06/27/16 14:45 06/28/16 10:46 Effexor Xr - PO Not Given DAILY [facility] Microbiology 06/24/16 16:15 Urine - Urine Clean Catch Urine Culture - Final Escherichia Coli Esbl [facility] CXR on 06/28: Left lung mass. CT chest on 06/28: Large left upper lobe mass inseparable from the pleura, mediastinum and aorta. There has been a significant increase in size since the prior exam. There is also a nodule anterior to the anterior margin the right hemidiaphragm which will need follow-up. There are small pleural effusions, left greater than right. There are mildly prominent nodes in the mediastinum and prominent hilar nodes which are difficult to exactly measure due to lack of IV contrast. No obvious metastatic lesions identified in the bone or upper abdomen. CT head on 06/28: Since 06/26/2016, there remains moderate atrophy, ventricular dilatation and chronic microvascular ischemic changes. Previously described focal increased attenuation/acute/subacute hemorrhage in the right temporal lobe is again seen without any significant interval change in size or appearance. Mild surrounding edema is again noted. No interval new acute intracranial hemorrhage is seen. There is no shift of the midline structures. The calvarium is intact. 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 ID: Sepsis 2/2 complicated UTI - h/o ESBL - Culture grew ESBL and sensitive to zosyn - WBC still elevated but no white count - Cont. zosyn day 4 - Cont. isolation Neuro: AMS 2/2 intracranial hemorrhage and urosepsis - Repeat CT head showed no interval change - Cont. keppra 750mg BID - Maintain SBP < 160, DBP < 90 * Lopressor PRN for BP control * Added vasotec ERIN - No anti-coagulation or NSAID for 1 month Cardiac: A-fib with RVR - No A-fib overnight but 1 episode this AM * Converted after lopressor x 3 and amiodarone x 1 - Cont. cardiac monitoring - Observe off AC and NSAID Pulm: Lung mass; pleural effusion - BENT[place] lung mass - CT chest w/o contrast confirms BENT[place] mass and increase in size * F/u as outpatient - Lasix one dose 40mg IVPUSH - CXR tomorrow AM FEN - No IVF - Repleted phosphorus with K+PO4-, f/u BMP - NPO for now Prophylaxis - DVT: d/c heparin; SCDs - GI: on home protonix Disposition -Transfer to telemetry Code status - Full code Visit type - Emergency Visit Emergency Visit: No - New Patient This patient is new to me today: No - Critical Care Critical Care patient: Yes Total Critical Care Time (in minutes): 45 Critical Care Statement: The care of this patient involved high complexity decision making to prevent further life threatening deterioration of the patient 's condition and/or to evalute & treat vital organ system(s) failure or risk of failure.
[2016-06-28] MEDS: QUEtiapine FUMARATE 25 MG TABLET (FP) PO SCH (21:58)
[2016-06-28] MEDS: CHLORHEXIDINE GLUCONATE 4% CLEANSER FOR DECOLONIZATION TP SCH (22:02)
[2016-06-28] MEDS ORDERED: PNEUMOC 13-VAL CONJ-DIP CRM/PF 0.5 ML DISP.SYRIN IM ONE (22:28)
[2016-06-29] MEDS: METOPROLOL TARTRATE 5 MG/5 ML VIAL IVPUSH SCH ×5 (00:04→23:21)
[2016-06-29] MEDS: PIPERACILLIN/TAZOB 3.375 GM/50 ML PRE-DOCKED IVPB SCH (01:49)
[2016-06-29] MEDS: ENALAPRILAT DIHYDRATE 1.25 MG/1 ML VIAL IVPB SCH ×4 (05:54→22:00)
[2016-06-29 06:10] LABS: BASOPHIL 0.1 % (0-2.0); EOSINOPHIL 0.1 % (0-4.5); MCH 29.3 pg (25.7-33.7); MCHC 34.4 g/dl (32.0-36.0); PLATELET COUNT 116 K/MM3 (134-434); RDW 18.5 % (11.6-15.6); WHITE BLOOD COUNT 13.4 K/mm3 (4.0-10.0)
[2016-06-29 06:39] LABS: ALBUMIN 2.2 g/dl (3.4-5.0); ALK PHOS 56 U/L (45-117); ANION GAP 16 (8-16); BILIRUBIN,TOTAL 1.2 mg/dL (0.2-1.0); CALCIUM 7.6 mg/dL (8.5-10.1); CO2 25 mmol/L (21-32); CREATININE 0.7 mg/dL (0.55-1.02); GLUCOSE,RANDOM 127 mg/dL (74-106); MAGNESIUM 1.9 mg/dL (1.8-2.4); PHOSPHOROUS 3.1 mg/dL (2.5-4.9); SGOT/AST 10 U/L (15-37); SGPT/ALT 15 U/L (12-78); TOT PROT 4.4 g/dl (6.4-8.2)
[2016-06-29] MEDS: CARBIDOPA/LEVODOPA 25/100 TABLET (FP) PO SCH ×3 (07:39→23:11)
--- NOTE | 2016-06-29 07:46 | PN ---
Progress Note, Physician Chief Complaint: ID Zosyn day 5 therapy Afebrile ( never febrile) - Current Medication List Current Medications: Active Medications Buspirone HCl (Buspar -) mg PO BID [facility] Carbidopa/Levodopa (Sinemet 25/100 -) 1 each PO TID [facility] Last Admin: 06/29/16 07:39 Dose: Not Given Chlorhexidine Gluconate (Hibiclens For Decolonization -) 1 applic TP HS [facility] Last Admin: 06/28/16 22:02 Dose: 1 applic Enalaprilat (Vasotec Injection -) 1.25 mg IVPB Q6H-IV [facility] Last Admin: 06/29/16 05:54 Dose: Not Given Pantoprazole Sodium (Protonix 40mg Ivpb (Pre-Docked)) 100 mls @ 200 mls/hr IVPB DAILY [facility] Last Admin: 06/28/16 13:00 Dose: 200 mls/hr Potassium Phosphate 30 mm/ (Dextrose) 260 mls @ 62.5 mls/hr IVPB ONCE ONE Stop: 06/28/16 20:24 Levetiracetam (Keppra Injection -) 750 mg IVPB BID [facility] Last Admin: 06/28/16 22:01 Dose: 750 mg Metoprolol Tartrate (Lopressor -) 50 mg PO BID [facility] Last Admin: 06/28/16 10:51 Dose: Not Given Metoprolol Tartrate (Lopressor Injection -) 5 mg IVPUSH Q6H [facility] Last Admin: 06/29/16 05:54 Dose: Not Given Metoprolol Tartrate (Lopressor Injection -) 5 mg IVPUSH Q4H PRN PRN Reason: HYPERTENSION Mupirocin (Bactroban Ointment (For Decolonization) -) 1 applic NS BID [facility] Stop: 06/30/16 09:59 Last Admin: 06/28/16 22:00 Dose: 1 applic Piperacillin Sod/Tazobactam Sod (Zosyn 3.375gm Ivpb (Pre-Docked)) 3.375 gm IVPB Q8H-IV [facility] PRN Reason: Protocol Last Admin: 06/29/16 01:49 Dose: 3.375 gm Pneumococcal 13-Valent Conj Vacc (Prevnar 13 Syringe -) 0.5 ml IM .ONCE ONE Stop: 06/28/16 22:29 Prednisone (Deltasone -) mg PO DAILY [facility] Quetiapine Fumarate (Seroquel -) 25 mg PO HS [facility] Last Admin: 06/28/16 21:58 Dose: Not Given Valsartan (Diovan -) 160 mg PO DAILY [facility] Last Admin: 06/28/16 10:46 Dose: Not Given Venlafaxine HCl (Effexor Xr -) 150 mg PO DAILY [facility] Last Admin: 06/28/16 10:46 Dose: Not Given - Objective Vital Signs: Vital Signs Temperature 97.0 F L 06/29/16 05:52 Pulse Rate 71 06/29/16 05:54 Respiratory Rate 13 06/29/16 05:52 Blood Pressure 100/43 06/29/16 05:54 O2 Sat by Pulse Oximetry (%) 100 06/28/16 20:52 Constitutional: Yes: Well Nourished, No Distress Neck: Yes: Other (Central line) Cardiovascular: Yes: Regular Rate and Rhythm, S1, S2. No: Murmur Respiratory: Yes: WNL, Regular, CTA Bilaterally Gastrointestinal: Yes: WNL, Normal Bowel Sounds, Hepatomegaly. No: Tenderness, Tenderness, Rebound Extremities: No: Cold, Cool, Cyanosis Edema: Yes Labs: CBC, BMP 06/29/16 05:20 06/29/16 05:20 INR, PTT INR 1.05 (0.82-1.09) 06/24/16 16:15 Problem List - Problems (1) Atrial fibrillation Code(s): I48.91 - UNSPECIFIED ATRIAL FIBRILLATION Qualifiers: Atrial fibrillation type: unspecified Qualified Code(s): I48.91 - Unspecified atrial fibrillation (2) ICH (intracerebral hemorrhage) Code(s): I61.9 - NONTRAUMATIC INTRACEREBRAL HEMORRHAGE, UNSPECIFIED Qualifiers : Intracerebral hemorrhage etiology: nontraumatic Cerebral hemorrhage location: unspecified cerebral location Laterality: unspecified laterality Qualified Code(s): I61.9 - Nontraumatic intracerebral hemorrhage, unspecified (3) UTI (urinary tract infection) Code(s): N39.0 - URINARY TRACT INFECTION, SITE NOT SPECIFIED Qualifiers: Urinary tract infection type: site unspecified Hematuria presence: without hematuria Qualified Code(s): N39.0 - Urinary tract infection, site not specified Assessment/Plan Microbiology 07/16/15 10:15 Urine - Urine Clean Catch Urine Culture - Final Escherichia Coli Esbl [employer] Helper 03/31/17 16:15 Urine - Urine Clean Catch Urine Culture - Final Escherichia Coli Esbl [employer] Helper#2 Escherichia Coli Esbl [employer] Helper 06/24/16 16:15 Blood - Peripheral Venous Blood Culture - Preliminary NO GROWTH OBTAINED AFTER 96 HOURS, INCUBATION TO CONTINUE FOR 1 DAYS. 06/24/16 16:15 Blood - Peripheral Venous Blood Culture - Preliminary NO GROWTH OBTAINED AFTER 96 HOURS, INCUBATION TO CONTINUE FOR 1 DAYS. Laboratory Tests 06/29/16 06/29/16 05:20 05:20 WBC 13.4 H Hgb 10.9 Hct 31.7 L Plt Count 116 L BUN 18 D Creatinine 0.7 Assessment Intracranial hemmorage Asymptomatic colonization of urinary tract same organism as before Plan Lets stop antibiotics and observe only Isolation for resistant organism Amy FRASER
[2016-06-29] MEDS ORDERED: AMIODARONE HCL 150 MG/3 ML VIAL IVPUSH ONE (08:21)
--- NOTE | 2016-06-29 08:56 | PN ---
Progress Note (short form) - Note Progress Note: NEUROSURGERY In ICU PE: AF, BP trending lower 100/43 In Afib SD 150 HEENT- NC/AT; Neck- supple; Cor- Irreg; Chest- decreased BS at bases; Abd- obese , benign; Ext- mild LE edema B NEURO- more awake, appropriate, denies H/A CN- PEERL; face symmetri; Motor- 4/5 B UE and B DF/PF; increased tone B UE > LE ; Sensation- grossly intact LT; DTR- hyporefelxic Head CT (06-26-16): stable/unchanged R temporal ICH, minimal edema; atrophy WBC 13.4 Blood culture negative to date; urine culture - E Coli ESBR Acute-subacute embolic hemorrhagic stroke in face of AFib; UTI/urosepsis On amiodarone Cardiology f/u and management No neurosurgical intervention indicated for small ICH Cont Keppra for sz prophylaxis Hold AC/NSAIDS for 1 month
[2016-06-29] MEDS ORDERED: AMIODARONE HCL INJECTION 450 MG in DEXTROSE 5%-WATER - 241 ML IVPB SCH ×2 (09:00→19:00)
[2016-06-29] MEDS: MUPIROCIN 2% TOPICAL OINTMENT FOR DECOLONIZATION NS SCH (09:55)
[2016-06-29] MEDS: PANTOPRAZOLE SODIUM 100 ML IVPB SCH (09:59)
[2016-06-29] MEDS: VENLAFAXINE HCL 75 MG E.R. CAPSULES (FP) PO SCH (09:59)
[2016-06-29] MEDS: levETIRAcetam 500 MG/5 ML INJECTION VIAL IVPB SCH ×2 (10:00→23:10)
[2016-06-29] MEDS: VALSARTAN 160 MG TABLET (UD) PO SCH (10:00)
--- NOTE | 2016-06-29 11:02 | PN ---
Progress Note (short form) - Note Progress Note: CC: afib S: lethargic, unable to get ros. overnight went back into afib with rvr, bp on low side Current Medications Generic Name Dose Route Start Last Admin Trade Name Freq PRN Reason Stop Dose Admin Buspirone HCl mg 06/27/16 22:00 Buspar - PO BID ERIN Carbidopa/Levodopa 1 each 06/27/16 14:45 06/29/16 07:39 Sinemet 25/100 - PO Not Given TID ERIN Chlorhexidine Gluconate 1 applic 06/25/16 22:00 06/28/16 22:02 Hibiclens For Decolonization - TP 1 applic HS ERIN Administration Enalaprilat 1.25 mg 06/28/16 11:45 06/29/16 09:50 Vasotec Injection - IVPB Not Given Q6H-IV ERIN Pantoprazole Sodium 100 mls @ 200 mls/hr 06/28/16 11:15 06/29/16 09:59 Protonix 40mg Ivpb (Pre-Docked) IVPB 200 mls/hr DAILY ERIN Administration Potassium Phosphate 30 mm/ 260 mls @ 62.5 mls/hr 06/28/16 16:15 Dextrose IVPB 06/28/16 20:24 ONCE ONE Amiodarone HCl 450 mg/ 250 mls @ 33.33 mls/hr 06/29/16 09:00 06/29/16 10:04 Dextrose IVPB 06/29/16 15:00 33.33 mls/hr TITR ERIN Administration Protocol 1 MG/MIN Levetiracetam 750 mg 06/25/16 10:00 06/29/16 10:00 Keppra Injection - IVPB 750 mg BID ERIN Administration Metoprolol Tartrate 50 mg 06/27/16 22:00 06/28/16 10:51 Lopressor - PO Not Given BID ERIN Metoprolol Tartrate 5 mg 06/28/16 11:45 06/29/16 05:54 Lopressor Injection - IVPUSH Not Given Q6H ERIN Metoprolol Tartrate 5 mg 06/28/16 12:41 Lopressor Injection - IVPUSH Q4H PRN HYPERTENSION Mupirocin 1 applic 06/25/16 10:00 06/29/16 09:55 Bactroban Ointment (For Decolonization) - NS 06/30/16 09:59 1 applic BID ERIN Administration Pneumococcal 13-Valent Conj Vacc 0.5 ml 06/28/16 22:28 Prevnar 13 Syringe - IM 06/28/16 22:29 .ONCE ONE Prednisone mg 06/27/16 14:45 Deltasone - PO DAILY ERIN Quetiapine Fumarate 25 mg 06/27/16 22:00 06/28/16 21:58 Seroquel - PO Not Given HS ERIN Valsartan 160 mg 06/26/16 20:00 06/29/16 10:00 Diovan - PO Not Given DAILY ERIN Venlafaxine HCl 150 mg 06/27/16 14:45 06/29/16 09:59 Effexor Xr - PO Not Given DAILY ERIN Vital Signs Temp 97.3 F L 06/29/16 10:00 Pulse 70 06/29/16 10:00 Resp 13 06/29/16 10:00 BP 111/97 06/29/16 10:00 Pulse Ox 100 06/28/16 20:52 Intake & Output 06/28/16 06/28/16 06/29/16 11:59 23:59 11:59 Intake Total 100 250 200 Output Total 300 Balance -200 250 200 Weight 191 lb 5.78 oz 186 lb 8.177 oz Intake: IVPB 100 250 200 Output: Urine 300 Cormier 300 Other: Voiding Method Diaper Diaper # Unmeasured Voids Void 2 1 2 Weight Measurement Method Built in [facility] in [facility] Constitutional: Yes: Well Nourished, No Distress Eyes: No: Sclera Icterus Respiratory: Yes: CTA Bilaterally (anteriorly (not deep breaths)). No: Accessory Muscle Use, Rales, Wheezes Gastrointestinal: Yes: Normal Bowel Sounds. No: Distention, Hepatomegaly, Palpable Mass, Tenderness Cardiovascular: Yes: Regular Rate and Rhythm JVD: No Heart Sounds: Yes: S1, S2. No: Gallop Murmur: No: Systolic Murmur, Diastolic Murmur Extremities: No: Cold, Cyanosis Edema: Yes (trace pedal edema) Integumentary: No: Jaundice diaphoresis Neurological: Yes: Lethargy. No: Seizure Psychiatric: No: Agitated - Other Data Labs, Other Data: Laboratory Last Values WBC 13.4 K/mm3 (4.0-10.0) H 06/29/16 05:20 RBC 3.73 M/mm3 (3.60-5.2) 06/29/16 05:20 Hgb 10.9 GM/dL (10.7-15.3) 06/29/16 05:20 Hct 31.7 % (32.4-45.2) L 06/29/16 05:20 MCV 85.0 fl (80-96) 06/29/16 05:20 MCHC 34.4 g/dl (32.0-36.0) 06/29/16 05:20 RDW 18.5 % (11.6-15.6) H 06/29/16 05:20 Plt Count 116 K/MM3 (134-434) L 06/29/16 05:20 MPV 9.0 fl (7.5-11.1) 06/29/16 05:20 Neutrophils % 87.0 % (42.8-82.8) H 06/29/16 05:20 Lymphocytes % 7.5 % (8-40) L 06/29/16 05:20 Monocytes % 5.3 % (3.8-10.2) 06/29/16 05:20 Eosinophils % 0.1 % (0-4.5) D 06/29/16 05:20 Basophils % 0.1 % (0-2.0) 06/29/16 05:20 INR 1.05 (0.82-1.09) 06/24/16 16:15 PTT (Actin FS) 28.1 SECONDS (26.9-34.4) 06/25/16 02:45 Sodium 142 mmol/L (136-145) 06/29/16 05:20 Potassium 3.5 mmol/L (3.5-5.1) 06/29/16 05:20 Chloride 101 mmol/L (98-107) 06/29/16 05:20 Carbon Dioxide 25 mmol/L (21-32) 06/29/16 05:20 Anion Gap 16 (8-16) 06/29/16 05:20 BUN 18 mg/dL (7-18) D 06/29/16 05:20 Creatinine 0.7 mg/dL (0.55-1.02) 06/29/16 05:20 Creat Clearance w eGFR > 60 (>60) 06/29/16 05:20 POC Glucometer 147.75959 UNITS (()) 06/29/16 05:30 Random Glucose 127 mg/dL (74-106) H D 06/29/16 05:20 Lactic Acid 1.363 mmol/L (0.4-2.0) 06/25/16 02:45 Calcium 7.6 mg/dL (8.5-10.1) L 06/29/16 05:20 Phosphorus 3.1 mg/dL (2.5-4.9) D 06/29/16 05:20 Magnesium 1.9 mg/dL (1.8-2.4) 06/29/16 05:20 Total Bilirubin 1.2 mg/dL (0.2-1.0) H D 06/29/16 05:20 AST 10 U/L (15-37) L 06/29/16 05:20 ALT 15 U/L (12-78) 06/29/16 05:20 Alkaline Phosphatase 56 U/L (45-117) 06/29/16 05:20 Creatine Kinase 60 IU/L (26-192) 06/25/16 02:45 Troponin I 0.07 ng/ml (0.00-0.05) H 06/25/16 02:45 Total Protein 4.4 g/dl (6.4-8.2) L 06/29/16 05:20 Albumin 2.2 g/dl (3.4-5.0) L 06/29/16 05:20 TSH 2.43 uIU/ml (0.358-3.74) D 06/24/16 16:15 Urine Color Deidre 06/24/16 16:15 Urine Appearance Cloudy 06/24/16 16:15 Urine pH 5.0 (5.0-8.0) 06/24/16 16:15 Ur Specific Ashley 1.019 (1.001-1.035) 06/24/16 16:15 Urine Protein 2+ (NEGATIVE) H 06/24/16 16:15 Urine Glucose (UA) Negative (NEGATIVE) 06/24/16 16:15 Urine Ketones Trace (NEGATIVE) H 06/24/16 16:15 Urine Blood 2+ (NEGATIVE) H 06/24/16 16:15 Urine Nitrite Negative (NEGATIVE) 06/24/16 16:15 Urine Bilirubin 2.0 (NEGATIVE) 06/24/16 16:15 Urine Urobilinogen 4.0 e.u/dl E.U./dl (0.2-1.0) H 06/24/16 16:15 Ur Leukocyte Esterase 2+ (NEGATIVE) H 06/24/16 16:15 Urine RBC 29 /hpf (0-3) 06/24/16 16:15 Urine WBC 694 /hpf (3-5) 06/24/16 16:15 Ur Epithelial Cells Rare /hpf (FEW) 06/24/16 16:15 Urine Bacteria Moderate /hpf (NONE SEEN) 06/24/16 16:15 Hyaline Casts 12 /lpf 06/24/16 16:15 Urine Mucus Rare 06/24/16 16:15 Ur Random Sodium 79 MMOL/L 06/25/16 07:30 Ur Random Potassium 36.4 MMOL/L 06/25/16 07:30 Ur Random Chloride 94 MMOL/L 06/25/16 07:30 Urine Creatinine 39.5 mg/dL 06/25/16 07:30 ekg 06/06: rapid AF, diffuse ST-Ts (changed vs 2014 prior) ekg #2 06/24: NSR, ST-Ts persist, though improved tele: sr yesterday, then went back into afib with rvr overnight, currently afib , vr 130s-150s echo 06/2016: nl lv size/fn. nl rv size, no mention of fn. impaired LV relaxation. 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 As per neurosurgery, no acute intervention. - subsequent head CT stable. Chest X-ray: Report Reviewed (B[place] mass unchanged, no chf) MPI 08/2014 (persantine): no STs; "small subtle apical reversible defect suggestive of mild ischemia"; nl EF est cct 37 mins a/p: 80 year old woman, history of HTN, pafib, dementia, parkinsons disease, GERD, lung mass, depression, bilateral hip replacement, presented to ED for altered mental status for one day and found to have Acute-subacute embolic hemorrhagic stroke, UTI and afib. acute temporal lobe hemorrhage: -bp control to targets per neuro -no AC or anti-plt's at present per neuro/neurosurgery -neuro and neurosurgery following (conservative mgmt) paroxysmal afib: -rapid PAF on 06/06 and 06/28 and 06/29 -currently in afib with rvr -bp has been low so unable to get iv BB and unable to take po meds -will start amio gtt for rate control. 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 if the ICH was due to acute embolic CVA--neuro notes not suggesting this but possibility raised by neuro surgery--h/o metastatic malignant melanoma noted HTN: -bp has been low overnight and this AM -cont to hold diovan, metoprolol possible CAD: -"small, subtle" apical defect suggestive of ischemia on 2014 nuclear here -not followed by cardio in our office -no acute tx changes at the moment in any event -outpt cardio f/u once stable neurologically -trop x 2 here unremarkable echo with density on mitral valve - Patient here with UTI, but no evidence of bacteremia and now off abx per ID. Lesion likely secondary to MAC. metastatic melanoma (to lungs): -per onc, pmd hypokalemia: -cont repletion thrombocytopenia: -stable counts today
[2016-06-29] MEDS ORDERED: METOPROLOL TARTRATE 5 MG/5 ML VIAL IVPUSH PRN (11:40)
--- NOTE | 2016-06-29 11:48 | PN ---
Progress Note, BRUSH OR BROOM CUTTER - Note Progress Note: Eyes opened, vocalizing. o x self (,age). Mumbling with imprecise articualtion with limited articulatory excursion, seemingly seconday to impaired mental status/encephalopathy? oral/julissa-pheral cursory evaluation- symmetric, able to protrude tongue, show teeth. Intelligibility much improved in counting task in unison. Perseverative responses. Poor insight/memory. Delayed but brisk swallow onset with risk of aspiration, mostly due to high distractibility. REC: Dys puree/single sips of nectar thick liquid, Crush medication per manufacturers guidelines and give mixed in applesauce. Arouse pt and establish eye contact. Tell her you are feeding her. Tell her to open mouth, close mouth, swallow. Magic cup. Ensure compact, single careful sips. Monitor PO tolerance. NPO if cough, congestion, fever.
--- NOTE | 2016-06-29 14:23 | PN ---
Physical Exam: SUBJECTIVE: Patient seen and examined at bedside in the ICU. She appears more awake and responsive today. This morning she had a-fib and was started on amiodarone gtt. OBJECTIVE: LIJ inserted due to poor venous access, day 2 Vital Signs Period Temp Pulse Resp BP Sys/Blake Pulse Ox Last 24 Hr 97 F-97.4 F 61-86 12-18 96-156/43-97 100-100 GENERAL: More awake, still confused and speech is still garbled HEAD: AT, NC EYES: Pupils equal, round and reactive to light, sclera anicteric, conjunctiva clear ENT: oropharynx clear without exudates LUNGS: CTAB HEART: RRR, S1 and S2, no murmur or rub ABDOMEN: +bs, soft, non-tender EXTREMITIES: trace edema. CBCD WBC 13.4 K/mm3 (4.0-10.0) H 06/29/16 05:20 RBC 3.73 M/mm3 (3.60-5.2) 06/29/16 05:20 Hgb 10.9 GM/dL (10.7-15.3) 06/29/16 05:20 Hct 31.7 % (32.4-45.2) L 06/29/16 05:20 MCV 85.0 fl (80-96) 06/29/16 05:20 MCHC 34.4 g/dl (32.0-36.0) 06/29/16 05:20 RDW 18.5 % (11.6-15.6) H 06/29/16 05:20 Plt Count 116 K/MM3 (134-434) L 06/29/16 05:20 MPV 9.0 fl (7.5-11.1) 06/29/16 05:20 CMP Sodium 142 mmol/L (136-145) 06/29/16 05:20 Potassium 3.5 mmol/L (3.5-5.1) 06/29/16 05:20 Chloride 101 mmol/L (98-107) 06/29/16 05:20 Carbon Dioxide 25 mmol/L (21-32) 06/29/16 05:20 Anion Gap 16 (8-16) 06/29/16 05:20 BUN 18 mg/dL (7-18) D 06/29/16 05:20 Creatinine 0.7 mg/dL (0.55-1.02) 06/29/16 05:20 Creat Clearance w eGFR > 60 (>60) 06/29/16 05:20 Calcium 7.6 mg/dL (8.5-10.1) L 06/29/16 05:20 Total Bilirubin 1.2 mg/dL (0.2-1.0) H D 06/29/16 05:20 AST 10 U/L (15-37) L 06/29/16 05:20 ALT 15 U/L (12-78) 06/29/16 05:20 Alkaline Phosphatase 56 U/L (45-117) 06/29/16 05:20 Total Protein 4.4 g/dl (6.4-8.2) L 06/29/16 05:20 Albumin 2.2 g/dl (3.4-5.0) L 06/29/16 05:20 Intake & Output 06/26/16 06/27/16 06/28/16 06/29/16 23:59 23:59 23:59 23:59 Intake Total 349.6 950 350 200 Output Total 1800 1350 300 Balance -1450.4 -400 50 200 Weight 86.636 kg 85.457 kg 86.8 kg 84.6 kg Active Medications Generic Name Dose Route Start Last Admin Trade Name Calq PRN Reason Stop Dose Admin Buspirone HCl mg 06/27/16 22:00 Buspar - PO BID ERIN Carbidopa/Levodopa 1 each 06/27/16 14:45 06/29/16 07:39 Sinemet 25/100 - PO Not Given TID ERIN Chlorhexidine Gluconate 1 applic 06/25/16 22:00 06/28/16 22:02 Hibiclens For Decolonization - TP 1 applic HS ERIN Administration Enalaprilat 1.25 mg 06/28/16 11:45 06/29/16 09:50 Vasotec Injection - IVPB Not Given Q6H-IV ERIN Pantoprazole Sodium 100 mls @ 200 mls/hr 06/28/16 11:15 06/29/16 09:59 Protonix 40mg Ivpb (Pre-Docked) IVPB 200 mls/hr DAILY ERIN Administration Amiodarone HCl 450 mg/ 250 mls @ 33.33 mls/hr 06/29/16 09:00 06/29/16 10:04 Dextrose IVPB 06/29/16 15:00 33.33 mls/hr TITR ERIN Administration Protocol 1 MG/MIN Levetiracetam 750 mg 06/25/16 10:00 06/29/16 10:00 Keppra Injection - IVPB 750 mg BID ERIN Administration Metoprolol Tartrate 50 mg 06/27/16 22:00 06/28/16 10:51 Lopressor - PO Not Given BID ERIN Metoprolol Tartrate 5 mg 06/29/16 11:40 Lopressor Injection - IVPUSH Q4H PRN HYPERTENSION Metoprolol Tartrate 5 mg 06/29/16 11:41 Lopressor Injection - IVPUSH Q6H ERIN Mupirocin 1 applic 06/25/16 10:00 06/29/16 09:55 Bactroban Ointment (For Decolonization) - NS 06/30/16 09:59 1 applic BID [facility] Administration Pneumococcal 13-Valent Conj Vacc 0.5 ml 06/28/16 22:28 Prevnar 13 Syringe - IM 06/28/16 22:29 .ONCE ONE Prednisone mg 06/27/16 14:45 Deltasone - PO DAILY [facility] Quetiapine Fumarate 25 mg 06/27/16 22:00 06/28/16 21:58 Seroquel - PO Not Given [facility] Valsartan 160 mg 06/26/16 20:00 06/29/16 10:00 Diovan - PO Not Given DAILY [facility] Venlafaxine HCl 150 mg 06/27/16 14:45 06/29/16 09:59 Effexor Xr - PO Not Given DAILY [facility] Microbiology 06/24/16 16:15 Urine - Urine Clean Catch Urine Culture - Final Escherichia Coli [employer] Imaging CXR on 06/29: no change CXR on 06/28: Left lung mass. CT chest on 06/28: Large left upper lobe mass inseparable from the pleura, mediastinum and aorta. There has been a significant increase in size since the prior exam. There is also a nodule anterior to the anterior margin the right hemidiaphragm which will need follow-up. There are small pleural effusions, left greater than right. There are mildly prominent nodes in the mediastinum and prominent hilar nodes which are difficult to exactly measure due to lack of IV contrast. No obvious metastatic lesions identified in the bone or upper abdomen. CT head on 06/28: Since 06/26/2016, there remains moderate atrophy, ventricular dilatation and chronic microvascular ischemic changes. Previously described focal increased attenuation/acute/subacute hemorrhage in the right temporal lobe is again seen without any significant interval change in size or appearance. Mild surrounding edema is again noted. No interval new acute intracranial hemorrhage is seen. There is no shift of the midline structures. The calvarium is intact. 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 Cardiac: A-fib with RVR - Afib this AM * Converted on amiodarone gtt * Titrate it down after 3pm today - Cont. cardiac monitoring - Observe off AC and NSAID ID: Sepsis 2/2 complicated UTI - h/o ESBL - Culture grew ESBL and sensitive to zosyn - WBC trending down - Cont. zosyn day 5 - Cont. isolation Neuro: AMS 2/2 intracranial hemorrhage and urosepsis - Repeat CT head showed no interval change - Cont. keppra 750mg BID - Maintain SBP < 160, DBP < 90 * Lopressor PRN and ERIN for BP control * Added vasotec ERIN - No anti-coagulation or NSAID for 1 month Pulm: Lung mass; pleural effusion - BENTON lung mass - CT chest w/o contrast confirms BENT[place] mass and increase in size * F/u as outpatient - Lasix one dose 40mg IVPUSH FEN - No IVF - Repleted phosphorus with K+PO4-, f/u BMP - Dysphagia puree with nectar thick liquid Prophylaxis - DVT: d/c heparin; SCDs - GI: on home protonix Disposition - Cont. to monitor in ICU Code status - Full code Visit type - Emergency Visit Emergency Visit: No - New Patient This patient is new to me today: No - Critical Care Critical Care patient: Yes Total Critical Care Time (in minutes): 45 Critical Care Statement: The care of this patient involved high complexity decision making to prevent further life threatening deterioration of the patient 's condition and/or to evalute & treat vital organ system(s) failure or risk of failure.
--- NOTE | 2016-06-29 15:42 | PN ---
Teaching Attending Note Name of Resident: Oscar Pavon ATTENDING PHYSICIAN STATEMENT I saw and evaluated the patient. I reviewed the resident's note and discussed the case with the resident. I agree with the resident's findings and plan as documented. SUBJECTIVE: Pt seen and examined in the ICU. Waxing and waning mental status, went into atrial fibrillation overnight, started on amiodarone gtt. Did not receive her standing lopressor due to borderline BP. Currently in sinus rhythm. OBJECTIVE: Last Vital Signs Temp Pulse Resp BP Pulse Ox 97 F L 74 13 106/62 100 06/29/16 13:40 06/29/16 13:40 06/29/16 13:40 06/29/16 13:40 06/28/16 20:52 Intake & Output 06/26/16 06/27/16 06/28/16 06/29/16 23:59 23:59 23:59 23:59 Intake Total 349.6 950 350 200 Output Total 1800 1350 300 Balance -1450.4 -400 50 200 Weight 191 lb 188 lb 6.4 oz 191 lb 5.78 oz 186 lb 8.177 oz Gen: more alert, awake Heart: RRR Lung: decreased breath sounds at the bases Abd: soft, nontender Ext: + UE edema CBC, BMP 06/29/16 05:20 06/29/16 05:20 Active Medications Buspirone HCl (Buspar -) mg PO BID [facility] Carbidopa/Levodopa (Sinemet 25/100 -) 1 each PO TID [facility] Last Admin: 06/29/16 07:39 Dose: Not Given Chlorhexidine Gluconate (Hibiclens For Decolonization -) 1 applic TP HS [facility] Last Admin: 06/28/16 22:02 Dose: 1 applic Enalaprilat (Vasotec Injection -) 1.25 mg IVPB Q6H-IV [facility] Last Admin: 06/29/16 09:50 Dose: Not Given Pantoprazole Sodium (Protonix 40mg Ivpb (Pre-Docked)) 100 mls @ 200 mls/hr IVPB DAILY [facility] Last Admin: 06/29/16 09:59 Dose: 200 mls/hr Levetiracetam (Keppra Injection -) 750 mg IVPB BID [facility] Last Admin: 06/29/16 10:00 Dose: 750 mg Metoprolol Tartrate (Lopressor -) 50 mg PO BID [facility] Last Admin: 06/28/16 10:51 Dose: Not Given Metoprolol Tartrate (Lopressor Injection -) 5 mg IVPUSH Q4H PRN PRN Reason: HYPERTENSION Metoprolol Tartrate (Lopressor Injection -) 5 mg IVPUSH Q6H [facility] Mupirocin (Bactroban Ointment (For Decolonization) -) 1 applic NS BID [facility] Stop: 06/30/16 09:59 Last Admin: 06/29/16 09:55 Dose: 1 applic Pneumococcal 13-Valent Conj Vacc (Prevnar 13 Syringe -) 0.5 ml IM .ONCE ONE Stop: 06/28/16 22:29 Prednisone (Deltasone -) mg PO DAILY [facility] Quetiapine Fumarate (Seroquel -) 25 mg PO HS [facility] Last Admin: 06/28/16 21:58 Dose: Not Given Valsartan (Diovan -) 160 mg PO DAILY [facility] Last Admin: 06/29/16 10:00 Dose: Not Given Venlafaxine HCl (Effexor Xr -) 150 mg PO DAILY [facility] Last Admin: 06/29/16 09:59 Dose: Not Given ASSESSMENT AND PLAN: Altered Mental Status UTI Sepsis Paroxysmal Atrial Fibrillation with RVR now in sinus Intracranial Hemorrhage Lung Mass/Metastatic Melanoma - monitoring antibiotics per ID - reculture if febrile - standing lopressor, only hold if MAP <60 - holding anticoagulation for at least 1 month - replete lytes, keep K >4, Mg >2 - PO as tolerated - aspiration precautions - DVT prophylaxis - can monitor on telemetry unit critical care time spent in reviewing chart, evaluating patient and formulating plan 36 min
[2016-06-29] MEDS ORDERED: AMIODARONE HCL INJECTION 150 MG in DEXTROSE 5%-WATER - 97 ML IVPB ONE (16:16)
--- NOTE | 2016-06-29 20:08 | PN ---
Physical Exam: SUBJECTIVE: Patient seen and examined at bedside in ICU. OBJECTIVE: Vital Signs Period Temp Pulse Resp BP Sys/Blake Pulse Ox Last 24 Hr 97 F-97.4 F 61-84 12-18 94-131/43-97 100-100 GENERAL/NEURO: The patient is awake. Able to speak single words, can say name, rest of speech is unintelligible; absent left hand soda maker, worse from my previous exam 2 days ago HEAD Normal with no signs of trauma. EYES: PERRL, extraocular movements intact, sclera anicteric, conjunctiva clear. No ptosis. ENT: Ears normal, nares patent, oropharynx clear without exudates, moist mucous membranes. NECK: Trachea midline, full range of motion, supple. LUNGS: Breath sounds equal, clear to auscultation bilaterally, no wheezes, no crackles, no accessory muscle use. HEART: Regular rate and rhythm, S1, S2 without murmur, rub or gallop. ABDOMEN: Soft, nontender, nondistended, normoactive bowel sounds, no guarding, no rebound, no hepatosplenomegaly, no masses. UPPER EXTREMITIES: 1+ bilateral edema, warm, well-perfused, 2+ pulses LOWER EXTREMITIES: 2+ left pedal edema; warm, well-perfused, 2+ pulses Laboratory Results - last 24 hr 06/28/16 06/28/16 06/29/16 11:03 17:21 00:12 WBC RBC Hgb Hct MCV MCHC RDW Plt Count MPV Neutrophils % Lymphocytes % Monocytes % Eosinophils % Basophils % Sodium Potassium Chloride Carbon Dioxide Anion Gap BUN Creatinine Creat Clearance w eGFR POC Glucometer 124.37540 153.60780 196.51939 Random Glucose Calcium Phosphorus Magnesium Total Bilirubin AST ALT Alkaline Phosphatase Total Protein Albumin 06/29/16 06/29/16 06/29/16 05:20 05:20 05:30 WBC 13.4 H RBC 3.73 Hgb 10.9 Hct 31.7 L MCV 85.0 MCHC 34.4 RDW 18.5 H Plt Count 116 L MPV 9.0 Neutrophils % 87.0 H Lymphocytes % 7.5 L Monocytes % 5.3 Eosinophils % 0.1 D Basophils % 0.1 Sodium 142 Potassium 3.5 Chloride 101 Carbon Dioxide 25 Anion Gap 16 BUN 18 D Creatinine 0.7 Creat Clearance w eGFR > 60 POC Glucometer 147.06936 Random Glucose 127 H D Calcium 7.6 L Phosphorus 3.1 D Magnesium 1.9 Total Bilirubin 1.2 H D AST 10 L ALT 15 Alkaline Phosphatase 56 Total Protein 4.4 L Albumin 2.2 L Active Medications Generic Name Dose Route Start Last Admin Trade Name Freq PRN Reason Stop Dose Admin Buspirone HCl mg 06/27/16 22:00 Buspar - PO BID [facility] Carbidopa/Levodopa 1 each 06/27/16 14:45 06/29/16 16:20 Sinemet 25/100 - PO Not Given TID ERIN Chlorhexidine Gluconate 1 applic 06/25/16 22:00 06/28/16 22:02 Hibiclens For Decolonization - TP 1 applic HS ERIN Administration Enalaprilat 1.25 mg 06/28/16 11:45 06/29/16 16:18 Vasotec Injection - IVPB Not Given Q6H-IV ERIN Pantoprazole Sodium 100 mls @ 200 mls/hr 06/28/16 11:15 06/29/16 09:59 Protonix 40mg Ivpb (Pre-Docked) IVPB 200 mls/hr DAILY ERIN Administration Amiodarone HCl 450 mg/ 250 mls @ 16.66 mls/hr 06/29/16 19:00 Dextrose IVPB TITR ERIN Protocol 0.5 MG/MIN Levetiracetam 750 mg 06/25/16 10:00 06/29/16 10:00 Keppra Injection - IVPB 750 mg BID ERIN Administration Metoprolol Tartrate 50 mg 06/27/16 22:00 06/28/16 10:51 Lopressor - PO Not Given BID ERIN Metoprolol Tartrate 5 mg 06/29/16 11:40 Lopressor Injection - IVPUSH Q4H PRN HYPERTENSION Metoprolol Tartrate 5 mg 06/29/16 11:41 06/29/16 19:13 Lopressor Injection - IVPUSH Not Given Q6H [facility] Mupirocin 1 applic 06/25/16 10:00 06/29/16 09:55 Bactroban Ointment (For Decolonization) - NS 06/30/16 09:59 1 applic BID ERIN Administration Pneumococcal 13-Valent Conj Vacc 0.5 ml 06/28/16 22:28 Prevnar 13 Syringe - IM 04/04/17 22:29 .ONCE ONE Prednisone mg 06/27/16 14:45 Deltasone - PO DAILY [facility] Quetiapine Fumarate 25 mg 06/27/16 22:00 06/28/16 21:58 Seroquel - PO Not Given HS ERIN Valsartan 160 mg 06/26/16 20:00 06/29/16 10:00 Diovan - PO Not Given DAILY ERIN Venlafaxine HCl 150 mg 06/27/16 14:45 06/29/16 09:59 Effexor Xr - PO Not Given DAILY [facility] ASSESSMENT/PLAN 80 year-old woman with a PMH of HTN, Parkinson's disease, metastatic malignant melanoma, multiple joint replacements, admitted for parenchymal temporal lobe acute/subacute hemorrhage. Acute/subacute intracranial hemorrhage --serial CT scans show no change from original 2cm area of hemorrhage --continue Keppra for seizure prophylaxis Paroxysmal atrial fibrillation with RVR --blood pressure low so unable to give beta shahab --given amio loading dose, now on amio drip, rate now in 80s --swallow eval indicates patient can take crushed meds, PO amio will be an option --CHADS-VASC 4 or 5 so high risk --no anti-coagulation now, but will have to consider for manager long term care given pAF and malignancy Diastolic heart failure r/o endocarditis --4/4 echo: impaired relaxation; focal echodensity on mitral valve --edematous on exam, but hypotensive; hold diuretics --concern for endocarditis, but blood cultures NGTD, no fever; per cardiology , low suspicion for endocarditis, more likely secondary to MAC, will discuss need for ALETHEA Hypertension --hypotensive --hold anti-hypertensives Metastatic melanoma --large 8.1cm L x 7.5cm W x 8.8cm AP [place] mass inseparable from pleura, aorta , mediastinum --obtain previous workup F/E/N Fluids: PO intake adequate Electrolytes: replete as indicated Nutrition: dysphagia puree, nectar thick DVT prophylaxis: hold chemical prophylaxis due to ICH; SCDs Rehab PT evaluation/daily PT Dispo: continues to require ICU level care. Visit type - Emergency Visit Emergency Visit: Yes ED Registration Date: 06/24/16 Care time: The patient presented to the Emergency Department on the above date and was hospitalized for further evaluation of their emergent condition. - New Patient This patient is new to me today: No - Critical Care Critical Care patient: Yes Total Critical Care Time (in minutes): 60 Critical Care Statement: The care of this patient involved high complexity decision making to prevent further life threatening deterioration of the patient 's condition and/or to evalute & treat vital organ system(s) failure or risk of failure.
[2016-06-29] MEDS: PANTOPRAZOLE 40 MG TABLET (FP) PO SCH (20:13)
[2016-06-29] MEDS: AMIODARONE HCL INJECTION 450 MG in DEXTROSE 5%-WATER - 241 ML IVPB SCH (20:14)
[2016-06-29] MEDS: HEPARIN NA (PORCINE) 5,000 UNITS/ML 1ML VIAL SQ SCH (20:14)
[2016-06-29] MEDS ORDERED: CHLORHEXIDINE GLUCONATE 4% CLEANSER FOR DECOLONIZATION TP SCH (22:00)
[2016-06-29] MEDS ORDERED: MUPIROCIN 2% TOPICAL OINTMENT FOR DECOLONIZATION NS SCH (22:00)
[2016-06-29] MEDS ORDERED: levETIRAcetam 500 MG/5 ML INJECTION VIAL IVPB ONE (23:03)
[2016-06-29] MEDS: QUEtiapine FUMARATE 25 MG TABLET (FP) PO SCH (23:10)
[2016-06-30] MEDS: ENALAPRILAT DIHYDRATE 1.25 MG/1 ML VIAL IVPB SCH ×3 (03:11→16:24)
[2016-06-30] MEDS: METOPROLOL TARTRATE 5 MG/5 ML VIAL IVPUSH SCH ×5 (06:27→22:31)
[2016-06-30] MEDS: CARBIDOPA/LEVODOPA 25/100 TABLET (FP) PO SCH ×2 (06:31→16:10)
[2016-06-30 08:04] LABS: BASOPHIL 0.1 % (0-2.0); EOSINOPHIL 1.1 % (0-4.5); MCH 29.6 pg (25.7-33.7); MCHC 34.4 g/dl (32.0-36.0); MEAN CELL VOLUME 85.8 fl (80-96); MEAN PLT VOLUME 8.7 fl (7.5-11.1); NEUTROPHILS 79.9 % (42.8-82.8); PLATELET COUNT 102 K/MM3 (134-434); RDW 18.6 % (11.6-15.6); WHITE BLOOD COUNT 10.9 K/mm3 (4.0-10.0)
[2016-06-30 08:48] LABS: ALBUMIN 2.1 g/dl (3.4-5.0); ALK PHOS 53 U/L (45-117); ANION GAP 12 (8-16); BILIRUBIN,TOTAL 1.1 mg/dL (0.2-1.0); CALCIUM 7.8 mg/dL (8.5-10.1); CO2 26 mmol/L (21-32); CREATININE 0.9 mg/dL (0.55-1.02); GLUCOSE,RANDOM 89 mg/dL (74-106); MAGNESIUM 1.7 mg/dL (1.8-2.4); PHOSPHOROUS 1.8 mg/dL (2.5-4.9); SGOT/AST 10 U/L (15-37); SGPT/ALT 8 U/L (12-78); TOT PROT 4.4 g/dl (6.4-8.2)
[2016-06-30] MEDS ORDERED: PT OWN MED DRAWER 7, Y5N ONE ×2 (09:04→18:04)
[2016-06-30] MEDS ORDERED: VALSARTAN 160 MG TABLET (UD) PO SCH (10:00)
[2016-06-30] MEDS ORDERED: AMIODARONE HCL INJECTION 450 MG in DEXTROSE 5%-WATER - 241 ML IVPB SCH (10:06)
[2016-06-30] MEDS: PANTOPRAZOLE SODIUM 100 ML IVPB SCH (10:19)
[2016-06-30] MEDS: levETIRAcetam 500 MG/5 ML INJECTION VIAL IVPB SCH ×2 (10:21→22:31)
[2016-06-30] MEDS: VENLAFAXINE HCL 75 MG E.R. CAPSULES (FP) PO SCH (10:22)
[2016-06-30] MEDS ORDERED: METOPROLOL TARTRATE 5 MG/5 ML VIAL IVPUSH PRN (10:23)
--- NOTE | 2016-06-30 10:47 | PN ---
Progress Note, HEALTH INFORMATION MANAGEMENT DIRECTOR - Note Progress Note: More lethargic for me, as compared to yesterday's tx session. Pt's performance varies significantly throughout the day. Limited PO acceptance and limited intelligibilty of speech sec to lethargy/ confusion. Delayed but brisk swallow onset with risk of aspiration, mostly due to high distractibility. Selected Entries 06/29/16 06/29/16 06/29/16 02:00 05:52 10:00 Lunch Temperature 97.0 F L 97.0 F L 97.3 F L 06/29/16 06/29/16 06/29/16 13:40 15:48 21:00 Lunch 0 Temperature 97 F L 98.4 F 06/30/16 06/30/16 06/30/16 01:00 06:00 08:28 Lunch Temperature 98.3 F 98.7 F 97.2 F L Laboratory Tests 06/28/16 06/29/16 06/30/16 07:45 05:20 05:50 WBC 15.1 H 13.4 H 10.9 H REC: Dys puree/single sips of nectar thick liquid, Crush medication per manufacturers guidelines and give mixed in applesauce. Arouse pt and establish eye contact. Tell her you are feeding her. Tell her to open mouth, close mouth, swallow. Magic cup. Ensure compact, single careful sips. Monitor PO tolerance. NPO if cough, congestion, fever. IV fluids, clinimix, if not medically contraindicated? NGT feedings? Not accepting enough nutrition/hydration by mouth at this time.
--- NOTE | 2016-06-30 12:16 | PN ---
Progress Note (short form) - Note Progress Note: CC: afib S: lethargic, unable to get ros. overnight had afib with rvr, then this AM converted to sr after iv lopressor, appears comfortable, unable to take any po meds per nursing. no cigs Current Medications Generic Name Dose Route Start Last Admin Trade Name Freq PRN Reason Stop Dose Admin Buspirone HCl mg 06/27/16 22:00 Buspar - PO BID ERIN Carbidopa/Levodopa 1 each 06/27/16 14:45 06/30/16 06:31 Sinemet 25/100 - PO 1 each TID ERIN Administration Enalaprilat 1.25 mg 06/28/16 11:45 06/30/16 10:32 Vasotec Injection - IVPB 1.25 mg Q6H-IV ERIN Administration Pantoprazole Sodium 100 mls @ 200 mls/hr 06/28/16 11:15 06/30/16 10:19 Protonix 40mg Ivpb (Pre-Docked) IVPB 200 mls/hr DAILY ERIN Administration Levetiracetam 750 mg 06/29/16 22:00 06/30/16 10:21 Keppra Injection - IVPB 750 mg BID ERIN Administration Metoprolol Tartrate 5 mg 06/30/16 10:23 06/30/16 11:46 Lopressor Injection - IVPUSH Not Given Q6H ERIN Metoprolol Tartrate 5 mg 06/30/16 10:23 Lopressor Injection - IVPUSH Q4H PRN TACHYCARDIA Valsartan 160 mg 06/30/16 10:00 06/30/16 10:22 Diovan - PO Not Given DAILY ERIN Venlafaxine HCl 150 mg 06/27/16 14:45 06/30/16 10:22 Effexor Xr - PO Not Given DAILY ERIN Vital Signs Temp 97.2 F L 06/30/16 08:28 Pulse 150 H 06/30/16 08:28 Resp 20 06/30/16 08:28 BP 156/78 06/30/16 08:28 Pulse Ox 100 06/30/16 08:08 Intake & Output 06/29/16 06/30/16 06/30/16 23:59 11:59 23:59 Intake Total 50 310 Balance 50 310 Intake: IV 160 Cordarone Injection - 450 160 mg In D5w - 241 ml @ 0.5 MG/MIN 16.66 mls/hr IVPB TITR ERIN Rx#:[id number] IVPB 50 150 Other: Voiding Method Incontinent Incontinent # Unmeasured Voids Void 2 2 Bowel Movement Yes Yes # Bowel Movements 1 1 Constitutional: Yes: Well Nourished, No Distress Eyes: No: Sclera Icterus Respiratory: Yes: CTA Bilaterally (anteriorly (not deep breaths)). No: Accessory Muscle Use, Rales, Wheezes Gastrointestinal: Yes: Normal Bowel Sounds. No: Distention, Hepatomegaly, Palpable Mass, Tenderness Cardiovascular: Yes: Regular Rate and Rhythm JVD: No Heart Sounds: Yes: S1, S2. No: Gallop Murmur: No: Systolic Murmur, Diastolic Murmur Extremities: No: Cold, Cyanosis Edema: Yes (trace pedal edema) Integumentary: No: Jaundice diaphoresis Neurological: Yes: Lethargy. No: Seizure Psychiatric: No: Agitated - Other Data Labs, Other Data: Laboratory Last Values WBC 10.9 K/mm3 (4.0-10.0) H 06/30/16 05:50 RBC 3.49 M/mm3 (3.60-5.2) L 06/30/16 05:50 Hgb 10.3 GM/dL (10.7-15.3) L 06/30/16 05:50 Hct 30.0 % (32.4-45.2) L 06/30/16 05:50 MCV 85.8 fl (80-96) 06/30/16 05:50 MCHC 34.4 g/dl (32.0-36.0) 06/30/16 05:50 RDW 18.6 % (11.6-15.6) H 06/30/16 05:50 Plt Count 102 K/MM3 (134-434) L 06/30/16 05:50 MPV 8.7 fl (7.5-11.1) 06/30/16 05:50 Neutrophils % 79.9 % (42.8-82.8) 06/30/16 05:50 Lymphocytes % 11.0 % (8-40) D 06/30/16 05:50 Monocytes % 7.9 % (3.8-10.2) 06/30/16 05:50 Eosinophils % 1.1 % (0-4.5) D 06/30/16 05:50 Basophils % 0.1 % (0-2.0) 06/30/16 05:50 INR 1.05 (0.82-1.09) 06/24/16 16:15 PTT (Actin FS) 28.1 SECONDS (26.9-34.4) 06/25/16 02:45 Sodium 144 mmol/L (136-145) 06/30/16 05:50 Potassium 3.3 mmol/L (3.5-5.1) L 06/30/16 05:50 Chloride 106 mmol/L (98-107) 06/30/16 05:50 Carbon Dioxide 26 mmol/L (21-32) 06/30/16 05:50 Anion Gap 12 (8-16) 06/30/16 05:50 BUN 20 mg/dL (7-18) H 06/30/16 05:50 Creatinine 0.9 mg/dL (0.55-1.02) D 06/30/16 05:50 Creat Clearance w eGFR > 60 (>60) 06/30/16 05:50 POC Glucometer 104 UNITS (()) 06/30/16 05:39 Random Glucose 89 mg/dL (74-106) D 06/30/16 05:50 Lactic Acid 1.363 mmol/L (0.4-2.0) 06/25/16 02:45 Calcium 7.8 mg/dL (8.5-10.1) L 06/30/16 05:50 Phosphorus 1.8 mg/dL (2.5-4.9) L D 06/30/16 05:50 Magnesium 1.7 mg/dL (1.8-2.4) L 06/30/16 05:50 Total Bilirubin 1.1 mg/dL (0.2-1.0) H 06/30/16 05:50 AST 10 U/L (15-37) L 06/30/16 05:50 ALT 8 U/L (12-78) L D 06/30/16 05:50 Alkaline Phosphatase 53 U/L (45-117) 06/30/16 05:50 Creatine Kinase 60 IU/L (26-192) 06/25/16 02:45 Troponin I 0.07 ng/ml (0.00-0.05) H 06/25/16 02:45 Total Protein 4.4 g/dl (6.4-8.2) L 06/30/16 05:50 Albumin 2.1 g/dl (3.4-5.0) L 06/30/16 05:50 TSH 2.43 uIU/ml (0.358-3.74) D 06/24/16 16:15 Urine Color [place] 06/24/16 16:15 Urine Appearance Cloudy 06/24/16 16:15 Urine pH 5.0 (5.0-8.0) 06/24/16 16:15 Ur Specific [place] 1.019 (1.001-1.035) 06/24/16 16:15 Urine Protein 2+ (NEGATIVE) H 06/24/16 16:15 Urine Glucose (UA) Negative (NEGATIVE) 06/24/16 16:15 Urine Ketones Trace (NEGATIVE) H 06/24/16 16:15 Urine Blood 2+ (NEGATIVE) H 06/24/16 16:15 Urine Nitrite Negative (NEGATIVE) 06/24/16 16:15 Urine Bilirubin 2.0 (NEGATIVE) 06/24/16 16:15 Urine Urobilinogen 4.0 e.u/dl E.U./dl (0.2-1.0) H 06/24/16 16:15 Ur Leukocyte Esterase 2+ (NEGATIVE) H 06/24/16 16:15 Urine RBC 29 /hpf (0-3) 06/24/16 16:15 Urine WBC 694 /hpf (3-5) 06/24/16 16:15 Ur Epithelial Cells Rare /hpf (FEW) 06/24/16 16:15 Urine Bacteria Moderate /hpf (NONE SEEN) 06/24/16 16:15 Hyaline Casts 12 /lpf 06/24/16 16:15 Urine Mucus Rare 06/24/16 16:15 Ur Random Sodium 79 MMOL/L 06/25/16 07:30 Ur Random Potassium 36.4 MMOL/L 06/25/16 07:30 Ur Random Chloride 94 MMOL/L 06/25/16 07:30 Urine Creatinine 39.5 mg/dL 06/25/16 07:30 ekg 06/06: rapid AF, diffuse ST-Ts (changed vs 2014 prior) ekg #2 06/24: NSR, ST-Ts persist, though improved tele: afib with rvr overnight, now in sr echo 06/2016: nl lv size/fn. nl rv size, no mention of fn. impaired LV relaxation. 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 As per neurosurgery, no acute intervention. - subsequent head CT stable. Chest X-ray: Report Reviewed ([place] mass unchanged, no chf) MPI 08/2014 (persantine): no STs; "small subtle apical reversible defect suggestive of mild ischemia"; nl EF a/p: 80 year old woman, history of HTN, pafib, dementia, parkinsons disease, GERD, lung mass, depression, bilateral hip replacement, presented to ED for altered mental status for one day and found to have Acute-subacute embolic hemorrhagic stroke, UTI and afib. acute temporal lobe hemorrhage: -bp control to targets per neuro -no AC or anti-plt's at present per neuro/neurosurgery -neuro and neurosurgery following (conservative mgmt) paroxysmal afib: -episodes of rapid PAF while here -currently in SR -bp was low so tried amio gtt yesterday but HR remained fast and this AM she converted to SR after iv lopressor. Thus will dc amio gtt and continue with standing iv lopressor until able to take po meds. -cont tele. 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 if the ICH was due to acute embolic CVA--neuro notes not suggesting this but possibility raised by neuro surgery--h/o metastatic malignant melanoma noted HTN: -bp had been low, today improved -unable to take po meds, will cont with iv lopressor for bp control possible CAD: -"small, subtle" apical defect suggestive of ischemia on 2014 nuclear here -not followed by cardio in our office -no acute tx changes at the moment in any event -outpt cardio f/u once stable neurologically -trop x 2 here unremarkable echo with density on mitral valve - Patient here with UTI, but no evidence of bacteremia and now off abx per ID. Lesion likely secondary to MAC. metastatic melanoma (to lungs): -per onc, pmd hypokalemia: -cont repletion
--- NOTE | 2016-06-30 16:14 | PN ---
Progress Note (short form) - Note Progress Note: Lethagic, but in NAD. No acute events overnight. Intake & Output 06/27/16 06/28/16 06/29/16 06/30/16 23:59 23:59 23:59 23:59 Intake Total 950 350 250 310 Output Total 1350 300 Balance -400 50 250 310 Weight 188 lb 6.4 oz 191 lb 5.78 oz 186 lb 8.177 oz Last Vital Signs Temp Pulse Resp BP Pulse Ox 98.6 F 168 H 20 125/68 100 06/30/16 15:31 06/30/16 16:05 06/30/16 15:31 06/30/16 16:05 06/30/16 08:08 Active Medications Buspirone HCl (Buspar -) mg PO BID [facility] Carbidopa/Levodopa (Sinemet 25/100 -) 1 each PO TID [facility] Last Admin: 06/30/16 16:10 Dose: Not Given Enalaprilat (Vasotec Injection -) 1.25 mg IVPB Q6H-IV [facility] Last Admin: 06/30/16 10:32 Dose: 1.25 mg Pantoprazole Sodium (Protonix 40mg Ivpb (Pre-Docked)) 100 mls @ 200 mls/hr IVPB DAILY [facility] Last Admin: 06/30/16 10:19 Dose: 200 mls/hr Levetiracetam (Keppra Injection -) 750 mg IVPB BID [facility] Last Admin: 06/30/16 10:21 Dose: 750 mg Metoprolol Tartrate (Lopressor Injection -) 5 mg IVPUSH Q6H [facility] Last Admin: 06/30/16 16:05 Dose: 5 mg Metoprolol Tartrate (Lopressor Injection -) 5 mg IVPUSH Q4H PRN PRN Reason: TACHYCARDIA Valsartan (Diovan -) 160 mg PO DAILY [facility] Last Admin: 06/30/16 10:22 Dose: Not Given Venlafaxine HCl (Effexor Xr -) 150 mg PO DAILY [facility] Last Admin: 06/30/16 10:22 Dose: Not Given Constitutional: Yes: No Distress, Obese, Lethargic Eyes: Yes: Conjunctiva Clear, PERRL HENT: Yes: Atraumatic, Normocephalic Neck: Yes: Supple Cardiovascular: Yes: Tachycardia (A fib with RVR) Respiratory: Yes: few rhonchi On Nasal O2 Gastrointestinal: Yes: Normal Bowel Sounds, Soft ...Rectal Exam: Yes: Deferred Renal/: Yes: Incontinence Musculoskeletal: Yes: Joint Stiffness (Multiple surgical scars; decreased ROM on BLE) Extremities: Yes: LLE redness and edema Edema: LUE: 1+, RUE: 1+, LLE: 2+, RLE: 2+ Peripheral Pulses WNL: Yes Neurological: Yes: non-focal ...Motor Strength: WNL, LUE, RUE Psychiatric: Yes: Other (no verbal response) Labs: Laboratory Results - last 24 hr 06/29/16 06/29/16 06/30/16 19:01 23:45 05:39 WBC RBC Hgb Hct MCV MCHC RDW Plt Count MPV Neutrophils % Lymphocytes % Monocytes % Eosinophils % Basophils % Sodium Potassium Chloride Carbon Dioxide Anion Gap BUN Creatinine Creat Clearance w eGFR POC Glucometer [phone] 104 Random Glucose Calcium Phosphorus Magnesium Total Bilirubin AST ALT Alkaline Phosphatase Total Protein Albumin 06/30/16 06/30/16 06/30/16 05:50 05:50 12:24 WBC 10.9 H RBC 3.49 L Hgb 10.3 L Hct 30.0 L MCV 85.8 MCHC 34.4 RDW 18.6 H Plt Count 102 L MPV 8.7 Neutrophils % 79.9 Lymphocytes % 11.0 D Monocytes % 7.9 Eosinophils % 1.1 D Basophils % 0.1 Sodium 144 Potassium 3.3 L Chloride 106 Carbon Dioxide 26 Anion Gap 12 BUN 20 H Creatinine 0.9 D Creat Clearance w eGFR > 60 POC Glucometer 104 Random Glucose 89 D Calcium 7.8 L Phosphorus 1.8 L D Magnesium 1.7 L Total Bilirubin 1.1 H AST 10 L ALT 8 L D Alkaline Phosphatase 53 Total Protein 4.4 L Albumin 2.1 L 06/30/16 15:50 WBC RBC Hgb Hct MCV MCHC RDW Plt Count MPV Neutrophils % Lymphocytes % Monocytes % Eosinophils % Basophils % Sodium Potassium Chloride Carbon Dioxide Anion Gap BUN Creatinine Creat Clearance w eGFR POC Glucometer 129 Random Glucose Calcium Phosphorus Magnesium Total Bilirubin AST ALT Alkaline Phosphatase Total Protein Albumin Problem List - Problems (1) Altered mental status Code(s): R41.82 - ALTERED MENTAL STATUS, UNSPECIFIED Qualifiers: Altered mental status type: unspecified Qualified Code(s): R41.82 - Altered mental status, unspecified (2) Atrial fibrillation Code(s): I48.91 - UNSPECIFIED ATRIAL FIBRILLATION Qualifiers: Atrial fibrillation type: unspecified Qualified Code(s): I48.91 - Unspecified atrial fibrillation (3) ICH (intracerebral hemorrhage) Code(s): I61.9 - NONTRAUMATIC INTRACEREBRAL HEMORRHAGE, UNSPECIFIED Qualifiers : Intracerebral hemorrhage etiology: nontraumatic Cerebral hemorrhage location: unspecified cerebral location (4) UTI (urinary tract infection) Code(s): N39.0 - URINARY TRACT INFECTION, SITE NOT SPECIFIED Qualifiers: Urinary tract infection type: site unspecified Hematuria presence: without hematuria Qualified Code(s): N39.0 - Urinary tract infection, site not specified Assessment/Plan ABX O2 as needed Aspiration precautions Rate control Monitor I&O SQ Heparin Telemetry monitoring Dr Norman
--- NOTE | 2016-06-30 20:14 | PN ---
Physical Exam: SUBJECTIVE: Patient seen and examined at bedside. Sister and HCP Romeo Wong present ([phone]). Neurologist: Dr. Doreen Holder, [facility]; [employer] Gloria Epstein Oncologist: Dr. Sukhdeep Suh, [place] OBJECTIVE: Vital Signs Period Temp Pulse Resp BP Sys/Blake Pulse Ox Last 24 Hr 97.2 F-98.8 F 77-168 18-20 103-156/47-85 97-100 GENERAL/NEURO: The patient is somnolent. Opens eyes to physical stimuli. Does not follow commands. HEAD Normal with no signs of trauma. EYES: PERRL, extraocular movements not tested; sclera anicteric, conjunctiva clear. No ptosis. ENT: Ears normal, nares patent, oropharynx clear without exudates, moist mucous membranes. NECK: Trachea midline, full range of motion, supple. LUNGS: Breath sounds equal, clear to auscultation bilaterally, no wheezes, no crackles, no accessory muscle use. HEART: Regular rate and rhythm, S1, S2 without murmur, rub or gallop. ABDOMEN: Soft, nontender, nondistended, normoactive bowel sounds, no guarding, no rebound, no hepatosplenomegaly, no masses. UPPER EXTREMITIES: 1+ bilateral edema, warm, well-perfused, 2+ pulses LOWER EXTREMITIES: 2+ left pedal edema; warm, well-perfused, 2+ pulses Laboratory Results - last 24 hr 06/30/16 06/30/16 06/30/16 05:50 05:50 12:24 WBC 10.9 H RBC 3.49 L Hgb 10.3 L Hct 30.0 L MCV 85.8 MCHC 34.4 RDW 18.6 H Plt Count 102 L MPV 8.7 Neutrophils % 79.9 Lymphocytes % 11.0 D Monocytes % 7.9 Eosinophils % 1.1 D Basophils % 0.1 Sodium 144 Potassium 3.3 L Chloride 106 Carbon Dioxide 26 Anion Gap 12 BUN 20 H Creatinine 0.9 D Creat Clearance w eGFR > 60 POC Glucometer 104 Random Glucose 89 D Calcium 7.8 L Phosphorus 1.8 L D Magnesium 1.7 L Total Bilirubin 1.1 H AST 10 L ALT 8 L D Alkaline Phosphatase 53 Total Protein 4.4 L Albumin 2.1 L Active Medications Generic Name Dose Route Start Last Admin Trade Name Freq PRN Reason Stop Dose Admin Buspirone HCl mg 06/27/16 22:00 Buspar - PO BID [facility] Carbidopa/Levodopa 1 each 06/27/16 14:45 06/30/16 16:10 Sinemet 25/100 - PO Not Given TID [facility] Enalaprilat 1.25 mg 06/28/16 11:45 06/30/16 16:24 Vasotec Injection - IVPB Not Given Q6H-IV ERIN Pantoprazole Sodium 100 mls @ 200 mls/hr 06/28/16 11:15 06/30/16 10:19 Protonix 40mg Ivpb (Pre-Docked) IVPB 200 mls/hr DAILY ERIN Administration Levetiracetam 750 mg 06/29/16 22:00 06/30/16 10:21 Keppra Injection - IVPB 750 mg BID ERIN Administration Metoprolol Tartrate 5 mg 06/30/16 10:23 06/30/16 16:05 Lopressor Injection - IVPUSH 5 mg Q6H ERIN Administration Metoprolol Tartrate 5 mg 06/30/16 10:23 06/30/16 18:20 Lopressor Injection - IVPUSH 5 mg Q4H PRN Administration TACHYCARDIA Valsartan 160 mg 06/30/16 10:00 06/30/16 10:22 Diovan - PO Not Given DAILY [facility] Venlafaxine HCl 150 mg 06/27/16 14:45 06/30/16 10:22 Effexor Xr - PO Not Given DAILY [facility] ASSESSMENT/PLAN 80 year-old woman with a PMH of HTN, Parkinson's disease, metastatic malignant melanoma, multiple joint replacements, admitted for parenchymal temporal lobe acute/subacute hemorrhage. 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 given pAF and malignancy Diastolic heart failure r/o endocarditis --4/4 echo: impaired relaxation; focal echodensity on mitral valve --edematous on exam, but borderline hypotensive; hold diuretics --concern for endocarditis, but blood cultures NGTD, no fever; per cardiology , low suspicion for endocarditis, more likely secondary to MAC, will discuss need for ALETHEA Hypertension --borderline hypotensive --hold anti-hypertensives Metastatic melanoma --large 8.1cm L x 7.5cm W x 8.8cm AP [place] mass inseparable from pleura, aorta , mediastinum --per sister/HCP, patient diagnosed with metastatic melanoma a year ago, seen by oncologist Dr. Sukhdeep Suh, patient chose not to treat F/E/N Fluids: PO intake adequate Electrolytes: replete as indicated Nutrition: NPO DVT prophylaxis: hold chemical prophylaxis due to ICH; SCDs Rehab PT evaluation/daily PT Dispo: continues to require inpatient care. Sister/HCP will bring advance directives tomorrow. Full Code. Visit type - Emergency Visit Emergency Visit: Yes ED Registration Date: 06/24/16 Care time: The patient presented to the Emergency Department on the above date and was hospitalized for further evaluation of their emergent condition. - New Patient This patient is new to me today: No - Critical Care Critical Care patient: No
[2016-07-01 00:31] LABS: BASOPHIL 0.3 % (0-2.0); EOSINOPHIL 1.3 % (0-4.5); MCH 28.9 pg (25.7-33.7); MCHC 33.6 g/dl (32.0-36.0); MEAN PLT VOLUME 9.1 fl (7.5-11.1); NEUTROPHILS 80.4 % (42.8-82.8); PLATELET COUNT 104 K/MM3 (134-434); RDW 19.1 % (11.6-15.6)
[2016-07-01 01:19] LABS: ALBUMIN 2.1 g/dl (3.4-5.0); ANION GAP 9 (8-16); CALCIUM 8.1 mg/dL (8.5-10.1); CO2 29 mmol/L (21-32); GLUCOSE,RANDOM 90 mg/dL (74-106); MAGNESIUM 1.6 mg/dL (1.8-2.4)
[2016-07-01 01:23] LABS: ALK PHOS 53 U/L (45-117); CREATININE 0.8 mg/dL (0.55-1.02); PHOSPHOROUS 1.8 mg/dL (2.5-4.9); SGOT/AST 14 U/L (15-37); SGPT/ALT 11 U/L (12-78); TOT PROT 4.2 g/dl (6.4-8.2)
[2016-07-01] MEDS: METOPROLOL TARTRATE 5 MG/5 ML VIAL IVPUSH SCH ×4 (05:00→23:15)
[2016-07-01] MEDS: PANTOPRAZOLE SODIUM 100 ML IVPB SCH (09:37)
[2016-07-01] MEDS: levETIRAcetam 500 MG/5 ML INJECTION VIAL IVPB SCH ×2 (09:37→21:21)
[2016-07-01] MEDS ORDERED: METOPROLOL TARTRATE 50 MG TABLET (FP) GT SCH (10:00)
--- NOTE | 2016-07-01 11:23 | PN ---
Progress Note, [facility] - Note Progress Note: Vocalizing, eyes closed, not following commands. Unable to tolerate PO trials. Pt at risk of aspiration, malnutrition, dehydration. Selected Entries 06/30/16 06/30/16 06/30/16 01:00 06:00 08:28 Skin Risk Level Supper Temperature 98.3 F 98.7 F 97.2 F L 06/30/16 06/30/16 06/30/16 15:31 17:00 21:00 Skin Risk Level Supper Temperature 98.6 F 98.8 F 98.1 F 06/30/16 07/01/16 07/01/16 22:00 04:28 05:00 Skin Risk Level High Risk Supper NPO Temperature 99.2 F 98.1 F 07/01/16 08:00 Skin Risk Level Supper Temperature 98 F Consider Palliative care f/u regarding TF.
--- NOTE | 2016-07-01 12:25 | PN ---
Progress Note (short form) - Note Progress Note: CC: afib S: lethargic, unable to get ros. no overnight events. tele shows sr now, occ pafib overnight. appears comfortable, still unable to take any po meds. no cigs Current Medications Generic Name Dose Route Start Last Admin Trade Name Freq PRN Reason Stop Dose Admin Pantoprazole Sodium 100 mls @ 200 mls/hr 06/28/16 11:15 07/01/16 09:37 Protonix 40mg Ivpb (Pre-Docked) IVPB 200 mls/hr DAILY ERIN Administration Dextrose/Sodium Chloride 1,000 mls @ 125 mls/hr 06/30/16 23:00 07/01/16 00:00 D5-1/2ns - IV 125 mls/hr ASDIR ERIN Administration Levetiracetam 750 mg 06/29/16 22:00 07/01/16 09:37 Keppra Injection - IVPB 750 mg BID ERIN Administration Metoprolol Tartrate 5 mg 06/30/16 10:23 07/01/16 09:38 Lopressor Injection - IVPUSH 5 mg Q6H ERIN Administration Metoprolol Tartrate 5 mg 06/30/16 10:23 06/30/16 18:20 Lopressor Injection - IVPUSH 5 mg Q4H PRN Administration TACHYCARDIA Metoprolol Tartrate 12.5 mg 07/01/16 10:00 Lopressor - GT BID ERIN Vital Signs Temp 98 F 07/01/16 08:00 Pulse 89 07/01/16 09:38 Resp 20 07/01/16 08:00 BP 149/59 07/01/16 09:38 Pulse Ox 98 07/01/16 05:00 Intake & Output 06/30/16 07/01/16 07/01/16 23:59 11:59 23:59 Intake Total 270 750 Balance 270 750 Weight 199 lb 6.4 oz Intake: IV 220 750 Cordarone Injection - 450 160 mg In D5w - 241 ml @ 0.5 MG/MIN 16.66 mls/hr IVPB TITR ERIN Rx#:[id number] D5-1/2Ns - 1,000 ml @ 125 750 mls/hr IV ASDIR ERIN Rx#: [id number] RAC #20 06/26/16 60 IVPB 50 Oral 0 Other: Voiding Method Incontinent Diaper # Unmeasured Voids Void 2 2 Bowel Movement Yes Yes Weight Measurement Method Built in Bedscale Constitutional: Yes: Well Nourished, No Distress Eyes: No: Sclera Icterus Respiratory: Yes: CTA Bilaterally (anteriorly (not deep breaths)). No: Accessory Muscle Use, Rales, Wheezes Gastrointestinal: Yes: Normal Bowel Sounds. No: Distention, Hepatomegaly, Palpable Mass, Tenderness Cardiovascular: Yes: Regular Rate and Rhythm JVD: No Heart Sounds: Yes: S1, S2. No: Gallop Murmur: No: Systolic Murmur, Diastolic Murmur Extremities: No: Cold, Cyanosis Edema: Yes (trace pedal edema) Integumentary: No: Jaundice diaphoresis Neurological: Yes: Lethargy. No: Seizure Psychiatric: No: Agitated - Other Data Labs, Other Data: Laboratory Last Values WBC 9.0 K/mm3 (4.0-10.0) 06/30/16 23:55 RBC 3.53 M/mm3 (3.60-5.2) L 06/30/16 23:55 Hgb 10.2 GM/dL (10.7-15.3) L 06/30/16 23:55 Hct 30.4 % (32.4-45.2) L 06/30/16 23:55 MCV 86.0 fl (80-96) 06/30/16 23:55 MCHC 33.6 g/dl (32.0-36.0) 06/30/16 23:55 RDW 19.1 % (11.6-15.6) H 06/30/16 23:55 Plt Count 104 K/MM3 (134-434) L 06/30/16 23:55 MPV 9.1 fl (7.5-11.1) 06/30/16 23:55 Neutrophils % 80.4 % (42.8-82.8) 06/30/16 23:55 Lymphocytes % 8.4 % (8-40) D 06/30/16 23:55 Monocytes % 9.6 % (3.8-10.2) 06/30/16 23:55 Eosinophils % 1.3 % (0-4.5) 06/30/16 23:55 Basophils % 0.3 % (0-2.0) 06/30/16 23:55 INR 1.05 (0.82-1.09) 06/24/16 16:15 PTT (Actin FS) 28.1 SECONDS (26.9-34.4) 06/25/16 02:45 Sodium 144 mmol/L (136-145) 06/30/16 23:55 Potassium 3.5 mmol/L (3.5-5.1) 06/30/16 23:55 Chloride 106 mmol/L (98-107) 06/30/16 23:55 Carbon Dioxide 29 mmol/L (21-32) 06/30/16 23:55 Anion Gap 9 (8-16) 06/30/16 23:55 BUN 19 mg/dL (7-18) H 06/30/16 23:55 Creatinine 0.8 mg/dL (0.55-1.02) 06/30/16 23:55 Creat Clearance w eGFR > 60 (>60) 06/30/16 23:55 POC Glucometer 113 UNITS (()) 07/01/16 06:17 Random Glucose 90 mg/dL (74-106) 06/30/16 23:55 Lactic Acid 1.363 mmol/L (0.4-2.0) 06/25/16 02:45 Calcium 8.1 mg/dL (8.5-10.1) L 06/30/16 23:55 Phosphorus 1.8 mg/dL (2.5-4.9) L 06/30/16 23:55 Magnesium 1.6 mg/dL (1.8-2.4) L 06/30/16 23:55 Total Bilirubin 1.0 mg/dL (0.2-1.0) 06/30/16 23:55 AST 14 U/L (15-37) L D 06/30/16 23:55 ALT 11 U/L (12-78) L D 06/30/16 23:55 Alkaline Phosphatase 53 U/L (45-117) 06/30/16 23:55 Creatine Kinase 60 IU/L (26-192) 06/25/16 02:45 Troponin I 0.07 ng/ml (0.00-0.05) H 06/25/16 02:45 Total Protein 4.2 g/dl (6.4-8.2) L 06/30/16 23:55 Albumin 2.1 g/dl (3.4-5.0) L 06/30/16 23:55 TSH 2.43 uIU/ml (0.358-3.74) D 06/24/16 16:15 Urine Color [place] 06/24/16 16:15 Urine Appearance Cloudy 06/24/16 16:15 Urine pH 5.0 (5.0-8.0) 06/24/16 16:15 Ur Specific [place] 1.019 (1.001-1.035) 06/24/16 16:15 Urine Protein 2+ (NEGATIVE) H 06/24/16 16:15 Urine Glucose (UA) Negative (NEGATIVE) 06/24/16 16:15 Urine Ketones Trace (NEGATIVE) H 06/24/16 16:15 Urine Blood 2+ (NEGATIVE) H 06/24/16 16:15 Urine Nitrite Negative (NEGATIVE) 06/24/16 16:15 Urine Bilirubin 2.0 (NEGATIVE) 06/24/16 16:15 Urine Urobilinogen 4.0 e.u/dl E.U./dl (0.2-1.0) H 06/24/16 16:15 Ur Leukocyte Esterase 2+ (NEGATIVE) H 06/24/16 16:15 Urine RBC 29 /hpf (0-3) 06/24/16 16:15 Urine WBC 694 /hpf (3-5) 06/24/16 16:15 Ur Epithelial Cells Rare /hpf (FEW) 06/24/16 16:15 Urine Bacteria Moderate /hpf (NONE SEEN) 06/24/16 16:15 Hyaline Casts 12 /lpf 06/24/16 16:15 Urine Mucus Rare 06/24/16 16:15 Ur Random Sodium 79 MMOL/L 06/25/16 07:30 Ur Random Potassium 36.4 MMOL/L 06/25/16 07:30 Ur Random Chloride 94 MMOL/L 06/25/16 07:30 Urine Creatinine 39.5 mg/dL 06/25/16 07:30 ekg 06/06: rapid AF, diffuse ST-Ts (changed vs 2014 prior) ekg #2 06/24: NSR, ST-Ts persist, though improved tele: sr now, overnight occ pafib with rvr echo 06/2016: nl lv size/fn. nl rv size, no mention of fn. impaired LV relaxation. 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 As per neurosurgery, no acute intervention. - subsequent head CT stable. Chest X-ray: Report Reviewed ([place] mass unchanged, no chf) MPI 08/2014 (persantine): no STs; "small subtle apical reversible defect suggestive of mild ischemia"; nl EF a/p: 80 year old woman, history of HTN, pafib, dementia, parkinsons disease, GERD, lung mass, depression, bilateral hip replacement, presented to ED for altered mental status for one day and found to have Acute-subacute embolic hemorrhagic stroke, UTI and afib. acute temporal lobe hemorrhage: -bp control to targets per neuro -no AC or anti-plt's at present per neuro/neurosurgery -neuro and neurosurgery following (conservative mgmt) paroxysmal afib: -episodes of rapid PAF while here -currently in SR -bp was low so had tried amio gtt but HR remained fast and she seems to respond better to iv lopressor so amio was stopped and have been using standing iv lopressor until able to take po meds. -cont tele. -will need to address if pt is able to take po meds safely as will likely need terminal superintendent rate control meds -CHADS-VASC 4 (vs 5?...if cad) -no AC until cleared by neuro/neurosurgery -? if the ICH was due to acute embolic CVA--neuro notes not suggesting this but possibility raised by neuro surgery--h/o metastatic malignant melanoma noted HTN: -bp had been low, now improved -unable to take po meds, will cont with iv lopressor for bp control possible CAD: -"small, subtle" apical defect suggestive of ischemia on 2014 nuclear here -not followed by cardio in our office -no acute tx changes at the moment in any event -outpt cardio f/u once stable neurologically -trop x 2 here unremarkable echo with density on mitral valve - Patient here with UTI, but no evidence of bacteremia and now off abx per ID. Lesion likely secondary to MAC. metastatic melanoma (to lungs): -per onc, pmd hypokalemia: -cont repletion prn
--- NOTE | 2016-07-01 12:34 | PN ---
Progress Note (short form) - Note Progress Note: Neurology Progress Note (short form) 80 year old woman, history of parkinsons disease, hypertension, bilateral hip replacement, presented to ED for altered mental status for one day. On arrival, u/a+ with leukocytosis, increased lactic acid, enlarging lung mass, and atrial fibrillation noted. She was seen by Dr. Vinson. CT head showed evidence of right temporal acute/subacute hemorrhage. Neurology and Neurosurgery consulted for findings. As per neurosurgery, no acute intervention. Recommend blood pressure control and keppra for seizure prophylaxis. There was concern for somnolence occuring yesterday and into today but during my evaluation seemed stable. 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 She was able to track me and maintain attention though not clearly verbal during encounter. Active Medications Pantoprazole Sodium (Protonix 40mg Ivpb (Pre-Docked)) 100 mls @ 200 mls/hr IVPB DAILY [facility] Last Admin: 07/01/16 09:37 Dose: 200 mls/hr Dextrose/Sodium Chloride (D5-1/2ns -) 1,000 mls @ 125 mls/hr IV ASDIR [facility] Last Admin: 07/01/16 00:00 Dose: 125 mls/hr Levetiracetam (Keppra Injection -) 750 mg IVPB BID [facility] Last Admin: 07/01/16 09:37 Dose: 750 mg Metoprolol Tartrate (Lopressor Injection -) 5 mg IVPUSH Q6H [facility] Last Admin: 07/01/16 09:38 Dose: 5 mg Metoprolol Tartrate (Lopressor Injection -) 5 mg IVPUSH Q4H PRN PRN Reason: TACHYCARDIA Last Admin: 06/30/16 18:20 Dose: 5 mg Metoprolol Tartrate (Lopressor -) 12.5 mg GT BID [facility] Physical Exam Vital Signs: Vital Signs Temperature 98 F 07/01/16 08:00 Pulse Rate 89 07/01/16 09:38 Respiratory Rate 20 07/01/16 08:00 Blood Pressure 149/59 07/01/16 09:38 O2 Sat by Pulse Oximetry (%) 98 07/01/16 05:00 Constitutional: Yes: No Distress Eyes: Yes: Conjunctiva Clear, EOM Intact HENT: Yes: Atraumatic, Normocephalic Cardiovascular: Yes: S1, S2 Neurological: Yes: Cran Nerves II-XII Intact, opens eyes to verbal command, sticks out tongue to command, blinks to visual threat, did not participate in confrontational testing, sensory intact Assessment/Plan 80 year old woman, history of parkinsons disease, hypertension, bilateral hip replacement, presented to ED for altered mental status for one day. On arrival, u/a+ with leukocytosis, increased lactic acid, enlarging lung mass, and atrial fibrillation noted. She was seen by Dr. Vinson. CT head showed evidence of right temporal acute/subacute hemorrhage. Neurology and Neurosurgery consulted for findings. As per neurosurgery, no acute intervention. Recommend blood pressure control and keppra for seizure prophylaxis. There was concern for somnolence occuring yesterday and into today but during my evaluation seemed stable. 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 She was able to track me and maintain attention though not clearly verbal during encounter. MRI brain ordered and can be checked to rule out ischemic event especially with underlying AFib. Neurosurgery input appreciated, no acute intervention. Seizure ppx. Would continue to treat underlying medical complications (UTI, decreased PO intake) as somnolence may be systemic if no significant changes on brain imaging.
[2016-07-01] MEDS: DEXTROSE 5%-0.45% SALINE 1,000 ML IV SCH ×3 (14:23→23:16)
--- NOTE | 2016-07-01 19:01 | PN ---
Physical Exam: SUBJECTIVE: Patient seen and examined at bedside. OBJECTIVE: Vital Signs Period Temp Pulse Resp BP Sys/Blake Pulse Ox Last 24 Hr 98 F-99.3 F 86-90 18-20 109-149/59-81 96-98 GENERAL/NEURO: The patient is awake. Moans to physical stimuli. No eye opening. No language. Does not follow commands. HEAD: No signs of trauma. EYES: PERRL, extraocular movements not tested; sclera anicteric, conjunctiva clear. No ptosis. ENT: Ears normal, nares patent, oropharynx clear without exudates, moist mucous membranes. NECK: Trachea midline, full range of motion, supple. LUNGS: Breath sounds equal, clear to auscultation bilaterally, no wheezes, no crackles, no accessory muscle use. HEART: Regular rate and rhythm, S1, S2 without murmur, rub or gallop. ABDOMEN: Soft, nontender, nondistended, normoactive bowel sounds, no guarding, no rebound, no hepatosplenomegaly, no masses. UPPER EXTREMITIES: 1+ bilateral edema, warm, well-perfused, 2+ pulses LOWER EXTREMITIES: 2+ left pedal edema; warm, well-perfused, 2+ pulses Laboratory Results - last 24 hr 06/30/16 06/30/16 07/01/16 23:55 23:55 06:17 WBC 9.0 RBC 3.53 L Hgb 10.2 L Hct 30.4 L MCV 86.0 MCHC 33.6 RDW 19.1 H Plt Count 104 L MPV 9.1 Neutrophils % 80.4 Lymphocytes % 8.4 D Monocytes % 9.6 Eosinophils % 1.3 Basophils % 0.3 Sodium 144 Potassium 3.5 Chloride 106 Carbon Dioxide 29 Anion Gap 9 BUN 19 H Creatinine 0.8 Creat Clearance w eGFR > 60 POC Glucometer 113 Random Glucose 90 Calcium 8.1 L Phosphorus 1.8 L Magnesium 1.6 L Total Bilirubin 1.0 AST 14 L D ALT 11 L D Alkaline Phosphatase 53 Total Protein 4.2 L Albumin 2.1 L Active Medications Generic Name Dose Route Start Last Admin Trade Name Freq PRN Reason Stop Dose Admin Pantoprazole Sodium 100 mls @ 200 mls/hr 06/28/16 11:15 07/01/16 09:37 Protonix 40mg Ivpb (Pre-Docked) IVPB 200 mls/hr DAILY ERIN Administration Dextrose/Sodium Chloride 1,000 mls @ 125 mls/hr 06/30/16 23:00 07/01/16 14:23 D5-1/2ns - IV 125 mls/hr ASDIR ERIN Administration Levetiracetam 750 mg 06/29/16 22:00 07/01/16 09:37 Keppra Injection - IVPB 750 mg BID ERIN Administration Metoprolol Tartrate 5 mg 06/30/16 10:23 07/01/16 17:48 Lopressor Injection - IVPUSH 5 mg Q6H ERIN Administration Metoprolol Tartrate 5 mg 06/30/16 10:23 06/30/16 18:20 Lopressor Injection - IVPUSH 5 mg Q4H PRN Administration TACHYCARDIA Metoprolol Tartrate 12.5 mg 07/01/16 10:00 Lopressor - GT BID ERIN ASSESSMENT/PLAN: 80 year-old woman with a PMH of HTN, Parkinson's disease, metastatic malignant melanoma, multiple joint replacements, admitted for parenchymal temporal lobe acute/subacute hemorrhage. Acute/subacute intracranial hemorrhage --no speech, not following commands --serial CT scans have not shown progression from original 2cm area of hemorrhage -- MRI pending --continue Keppra IV for seizure prophylaxis --NPO due to obtundation --insert G tube; start tube feeds; confirmation CXR ordered; can start PO meds Paroxysmal atrial fibrillation with RVR --several episodes of rate to 170's broke with IVP lopressor; amio drip finished; continue lopressor IVP PRN --no anti-coagulation now, but will have to consider for half-way given pAF and malignancy Diastolic heart failure r/o endocarditis --06/28 echo: impaired relaxation; focal echodensity on mitral valve --edematous on exam, but borderline hypotensive; hold diuretics --concern for endocarditis, but blood cultures NGTD, no fever; per cardiology , low suspicion for endocarditis, more likely secondary to MAC Hypertension --borderline hypotensive --hold anti-hypertensives Metastatic melanoma --large 8.1cm L x 7.5cm W x 8.8cm AP [place] mass inseparable from pleura, aorta , mediastinum --per sister/HCP, patient diagnosed with metastatic melanoma a year ago, seen by oncologist Dr. Sukhdeep Suh, patient chose not to treat F/E/N Fluids: PO intake adequate Electrolytes: replete as indicated Nutrition: NPO DVT prophylaxis: hold chemical prophylaxis due to ICH; SCDs Rehab PT evaluation/daily PT Dispo: continues to require inpatient care. Sister/HCP will bring advance directives. Full Code. Visit type - Emergency Visit Emergency Visit: Yes ED Registration Date: 06/24/16 Care time: The patient presented to the Emergency Department on the above date and was hospitalized for further evaluation of their emergent condition. - New Patient This patient is new to me today: No - Critical Care Critical Care patient: No
[2016-07-02] MEDS ORDERED: ACETAMINOPHEN 650 MG SUPP.RECT PR ONE (03:25)
[2016-07-02 03:36] LABS: BASOPHIL 0.3 % (0-2.0); EOSINOPHIL 0.7 % (0-4.5); MCH 29.1 pg (25.7-33.7); MCHC 33.8 g/dl (32.0-36.0); MEAN CELL VOLUME 86.1 fl (80-96); MEAN PLT VOLUME 8.9 fl (7.5-11.1); NEUTROPHILS 78.8 % (42.8-82.8); PLATELET COUNT 91 K/MM3 (134-434); RDW 18.4 % (11.6-15.6); WHITE BLOOD COUNT 8.9 K/mm3 (4.0-10.0)
[2016-07-02 04:01] LABS: ALK PHOS 51 U/L (45-117); ANION GAP 11 (8-16); BILIRUBIN,TOTAL 0.7 mg/dL (0.2-1.0); CALCIUM 7.7 mg/dL (8.5-10.1); CO2 27 mmol/L (21-32); COCKROFT - GAULT 106.7685; CREATININE 0.6 mg/dL (0.55-1.02); GLUCOSE,RANDOM 138 mg/dL (74-106); MAGNESIUM 1.4 mg/dL (1.8-2.4); PHOSPHOROUS 1.5 mg/dL (2.5-4.9); SGOT/AST 14 U/L (15-37); SGPT/ALT 15 U/L (12-78); TOT PROT 4.1 g/dl (6.4-8.2)
--- NOTE | 2016-07-02 04:57 | HOSP ---
Subjective - Review of Symptoms Events since last encounter: Called by nurse at 330 who reported pt with fever--100.5. No other complaints. Pt is otherwise unchanged. Reports HR and other VS stable. Subjective: Pt nonverbal, responsive to noxious stimuli. Physical Examination Vital Signs: Vital Signs Temperature 99.2 F 07/01/16 21:00 Pulse Rate 92 H 07/02/16 02:58 Respiratory Rate 20 07/02/16 02:58 Blood Pressure 121/53 07/02/16 02:58 O2 Sat by Pulse Oximetry (%) 96 07/01/16 21:00 Cardiovascular: Yes: Regular Rate and Rhythm Respiratory: Yes: CTA Bilaterally, Diminished (bilat bases), Other (upper airway noise) Gastrointestinal: Yes: Normal Bowel Sounds, Soft Labs: CBC, BMP 07/02/16 03:00 07/02/16 03:00 Hospitalist Encounter Assessment: Fever - blood and urine cultures ordered - tylenol given - stat CXR
[2016-07-02 05:25] LABS: URINE APPEARANCE CLOUDY; URINE BILIRUBIN NEGATIVE (NEGATIVE); URINE BLOOD 2+ (NEGATIVE); URINE COLOR DKYELLOW; URINE GLUCOSE (UA) 2+ (NEGATIVE); URINE KETONE NEGATIVE (NEGATIVE); URINE LEUK ESTERASE 3+ (NEGATIVE); URINE NITRITE POSITIVE (NEGATIVE); URINE PROTEIN 1+ (NEGATIVE); URINE UROBILINOGEN NEGATIVE E.U./dl (0.2-1.0)
[2016-07-02 05:29] LABS: URINE BACTERIA MANY /hpf (NONE SEEN); URINE HYALINE CAST 4 /lpf; URINE MUCUS MANY; URINE RBC 35 /hpf (0-3); URINE WBC 247 /hpf (3-5)
[2016-07-02] MEDS ORDERED: POTASSIUM CHLORIDE ORAL LIQUID 20 MEQ/15 ML GT ONE (05:50)
[2016-07-02] MEDS ORDERED: MAGNESIUM SULF 50% (8.12 MEQ/2 ML-1 GM VIAL) IVPB ONE (05:53)
[2016-07-02] MEDS: METOPROLOL TARTRATE 5 MG/5 ML VIAL IVPUSH SCH ×4 (06:52→22:28)
[2016-07-02] MEDS: KCL 10 MEQ IVPB 100 ML IVPB SCH ×3 (06:53→10:51)
--- NOTE | 2016-07-02 09:33 | PN ---
Physical Exam: SUBJECTIVE: Patient seen and examined. Able to follow simple commands. OBJECTIVE: Patient opened eyes when asked Lightly squeezed my left hand when asked low grade fever overnight, recultured, chest xray reviewed blood and urine cultures pending tylenol TN ordered WBC within normal range, monitor Called sister Romeo Wong HCP ([phone]) @ 1800 to follow up on advance directives. voice message left. Vital Signs Period Temp Pulse Resp BP Sys/Blake Pulse Ox Last 24 Hr 98.9 F-99.3 F 88-94 20-20 110-149/53-82 96 NEURO: The patient is awake, opens eyes slightly when asked. Squeezed lightly with her left hand. HEAD: No signs of trauma. EYES: PERRL, extraocular movements not tested; sclera anicteric, conjunctiva clear. No ptosis. ENT: Ears normal, nares patent, oropharynx clear without exudates, moist mucous membranes. NECK: Trachea midline, full range of motion, supple. LUNGS: no wheezes, no crackles, no accessory muscle use HEART: Regular rate and rhythm ABDOMEN: Soft, nontender, nondistended, normoactive bowel sounds, NGT in place UPPER EXTREMITIES: 1+ bilateral edema, warm, well-perfused, 2+ pulses LOWER EXTREMITIES: 2+ left pedal edema; warm, well-perfused, 2+ pulses Laboratory Results - last 24 hr 07/01/16 07/02/16 07/02/16 21:27 03:00 03:00 WBC 8.9 RBC 3.44 L Hgb 10.0 L Hct 29.6 L MCV 86.1 MCHC 33.8 RDW 18.4 H Plt Count 91 L MPV 8.9 Neutrophils % 78.8 Lymphocytes % 10.3 D Monocytes % 9.9 Eosinophils % 0.7 Basophils % 0.3 Sodium 144 Potassium 3.1 L Chloride 106 Carbon Dioxide 27 Anion Gap 11 BUN 13 D Creatinine 0.6 D Creat Clearance w eGFR > 60 POC Glucometer 126 Random Glucose 138 H D Calcium 7.7 L Phosphorus 1.5 L Magnesium 1.4 L Total Bilirubin 0.7 D AST 14 L ALT 15 D Alkaline Phosphatase 51 Total Protein 4.1 L Albumin 2.0 L Urine Color Urine Appearance Urine pH Ur Specific [place] Urine Protein Urine Glucose (UA) Urine Ketones Urine Blood Urine Nitrite Urine Bilirubin Urine Urobilinogen Ur Leukocyte Esterase Urine RBC Urine WBC Ur Epithelial Cells Urine Bacteria Hyaline Casts Urine Mucus 07/02/16 07/02/16 04:25 06:34 WBC RBC Hgb Hct MCV MCHC RDW Plt Count MPV Neutrophils % Lymphocytes % Monocytes % Eosinophils % Basophils % Sodium Potassium Chloride Carbon Dioxide Anion Gap BUN Creatinine Creat Clearance w eGFR POC Glucometer 137 Random Glucose Calcium Phosphorus Magnesium Total Bilirubin AST ALT Alkaline Phosphatase Total Protein Albumin Urine Color Dkyellow Urine Appearance Cloudy Urine pH 5.0 Ur Specific [place] 1.018 Urine Protein 1+ H Urine Glucose (UA) 2+ H Urine Ketones Negative Urine Blood 2+ H Urine Nitrite Positive Urine Bilirubin Negative Urine Urobilinogen Negative Ur Leukocyte Esterase 3+ H Urine RBC 35 Urine WBC 247 Ur Epithelial Cells Rare Urine Bacteria Many Hyaline Casts 4 Urine Mucus Many Active Medications Generic Name Dose Route Start Last Admin Trade Name Freq PRN Reason Stop Dose Admin Pantoprazole Sodium 100 mls @ 200 mls/hr 06/28/16 11:15 07/01/16 09:37 Protonix 40mg Ivpb (Pre-Docked) IVPB 200 mls/hr DAILY ERIN Administration Dextrose/Sodium Chloride 1,000 mls @ 125 mls/hr 06/30/16 23:00 07/01/16 23:16 D5-1/2ns - IV Not Given ASDIR ERIN Levetiracetam 750 mg 06/29/16 22:00 07/01/16 21:21 Keppra Injection - IVPB 750 mg BID ERIN Administration Metoprolol Tartrate 5 mg 06/30/16 10:23 07/02/16 06:52 Lopressor Injection - IVPUSH 5 mg Q6H ERIN Administration Metoprolol Tartrate 5 mg 06/30/16 10:23 06/30/16 18:20 Lopressor Injection - IVPUSH 5 mg Q4H PRN Administration TACHYCARDIA Metoprolol Tartrate 12.5 mg 07/01/16 10:00 Lopressor - GT BID ERIN ASSESSMENT/PLAN: Patient is an 80 year old female with a significant past medical history of hypertension, Parkinsons disease, metastatic malignant melanoma, multiple joint replacements. She was admitted on 06/24/2016 with intercerebral hemorrhage, UTI and atrial fibrillation. Imaging: CT scan of head 06/28/2016 - since 06/26/16, there remains moderate atrophy, ventricular dilatation and chronic microvascular iscdhemic changes, acute/ subacutre hemorrhage in the right temporal lobe is again seen without any signficant interval change in size or appearance. Mild surrounding edema is again seen. Brain MRI - ordered and pending Neuro: Acute/subacute intracranial hemorrhage Assessment/Plan: s/p ICU, now on telemonitoring Can follow simple commands, but remains non verbal, opened eyes briefly today CT scan of head reviewed Awaiting MRI of brain as per neuro On Keppra 750mg IVPB BID for seizure precautions has NGT tube for medications Seems to be tolerating feeds, will stop IVF Neuro checks Cardiology: Paroxysmal atrial fibrillation with RVR/Hypertension: Assessment/Plan: On Lopressor 12.5mg through GT, On Metoprolol 5mg push Q6, Lopressor 5mg q6 for tachycardia No anticoagulants secondary to intercerebral hemorrhage Oncology: Metastatic melanoma Assessment/Plan: history of large left upper lobe mass as per medical record, seen by oncologist but patient chose not to treat lobe mass ID: Ecoli + ESBL s/p treatment with Zosyn per ID repeating urine cultures after had low grade fever overnight blood and urine cultures pending ID following F.E.N. Fluids: jevity 1.5 with 30cc/hr water flushes, will stop IVF Electrolytes: hypokalemia repleted with 3 K riders Nutrition: jevity 1.5 with 30cc/hr water flushes, will stop IVF DVT prophylaxis: hold chemical prophylaxis secondary to acute/subacute intracranial hemorrhage GI: prophylaxis: Protonix ivpb Disposition: continues to require inpatient care. Palliative care consult to discuss goals of care. Full Code. Visit type - Emergency Visit Emergency Visit: Yes ED Registration Date: 06/24/16 Care time: The patient presented to the Emergency Department on the above date and was hospitalized for further evaluation of their emergent condition. - New Patient This patient is new to me today: Yes Date on this admission: 07/15/16 - Critical Care Critical Care patient: No - Discharge Referral Referred to [facility] Med [facility] No
[2016-07-02] MEDS: levETIRAcetam 500 MG/5 ML INJECTION VIAL IVPB SCH ×2 (10:52→22:29)
[2016-07-02] MEDS: PANTOPRAZOLE SODIUM 100 ML IVPB SCH (10:52)
[2016-07-02] MEDS ORDERED: LORAZEPAM CARPU-JECT 2 MG/ML DISP.SYRIN IVPUSH ONE (15:37)
--- NOTE | 2016-07-02 17:46 | PN ---
Progress Note, Physician History of Present Illness: TEle with NSR, no AFib seen - Current Medication List Current Medications: Active Medications Acetaminophen (Tylenol Suppository -) 650 mg OH Q6H PRN PRN Reason: FEVER OR PAIN Pantoprazole Sodium (Protonix 40mg Ivpb (Pre-Docked)) 100 mls @ 200 mls/hr IVPB DAILY [facility] Last Admin: 07/02/16 10:52 Dose: 200 mls/hr Levetiracetam (Keppra Injection -) 750 mg IVPB BID [facility] Last Admin: 07/02/16 10:52 Dose: 750 mg Lorazepam (Ativan Injection -) 0.5 mg IVPUSH ONCE ONE Stop: 07/02/16 15:38 Metoprolol Tartrate (Lopressor Injection -) 5 mg IVPUSH Q6H [facility] Last Admin: 07/02/16 10:52 Dose: 5 mg Metoprolol Tartrate (Lopressor Injection -) 5 mg IVPUSH Q4H PRN PRN Reason: TACHYCARDIA Last Admin: 06/30/16 18:20 Dose: 5 mg Metoprolol Tartrate (Lopressor -) 12.5 mg GT BID [facility] - Objective Vital Signs: Vital Signs Temperature 98.4 F 07/02/16 15:48 Pulse Rate 72 07/02/16 15:48 Respiratory Rate 18 07/02/16 15:48 Blood Pressure 105/87 07/02/16 15:48 O2 Sat by Pulse Oximetry (%) 98 07/02/16 09:00 Constitutional: Yes: Other (Does not open eyes to name, moaning) HENT: Yes: Atraumatic Cardiovascular: Yes: Regular Rate and Rhythm Edema: Yes Edema: RUE: 1+, LLE: 1+ Labs: CBC, BMP 07/02/16 03:00 07/02/16 03:00 INR, PTT INR 1.05 (0.82-1.09) 06/24/16 16:15 Assessment/Plan a/p: 80 year old woman, history of HTN, pafib, dementia, parkinsons disease, GERD, lung mass, depression, bilateral hip replacement, presented to ED for altered mental status for one day and found to have Acute-subacute embolic hemorrhagic stroke, UTI and afib. acute temporal lobe hemorrhage: -bp control to targets per neuro -no AC or anti-plt's at present per neuro/neurosurgery -neuro and neurosurgery following (conservative mgmt) paroxysmal afib: -episodes of rapid PAF while here -currently in SR -bp was low so had tried amio gtt but HR remained fast and she seems to respond better to iv lopressor so amio was stopped and have been using standing iv lopressor until able to take po meds. -cont tele. -will need to address if pt is able to take po meds safely as will likely need senior care rate control meds -CHADS-VASC 4 (vs 5?...if cad) -no AC until cleared by neuro/neurosurgery -? if the ICH was due to acute embolic CVA--neuro notes not suggesting this but possibility raised by neuro surgery--h/o metastatic malignant melanoma noted HTN: -bp had been low, now improved -unable to take po meds, will cont with iv lopressor for bp control possible CAD: -"small, subtle" apical defect suggestive of ischemia on 2014 nuclear here -not followed by cardio in our office -no acute tx changes at the moment in any event -outpt cardio f/u once stable neurologically -trop x 2 here unremarkable echo with density on mitral valve - Patient here with UTI, but no evidence of bacteremia and now off abx per ID. Lesion likely secondary to MAC. metastatic melanoma (to lungs): -per onc, pmd hypokalemia: -cont repletion prn
[2016-07-03] MEDS: METOPROLOL TARTRATE 5 MG/5 ML VIAL IVPUSH SCH ×4 (04:38→21:57)
[2016-07-03 08:07] LABS: BASOPHIL 0.4 % (0-2.0); EOSINOPHIL 1.9 % (0-4.5); MCH 29.4 pg (25.7-33.7); MCHC 34.1 g/dl (32.0-36.0); MEAN PLT VOLUME 9.2 fl (7.5-11.1); NEUTROPHILS 82.3 % (42.8-82.8); PLATELET COUNT 65 K/MM3 (134-434); RDW 18.5 % (11.6-15.6); WHITE BLOOD COUNT 9.3 K/mm3 (4.0-10.0)
[2016-07-03 08:42] LABS: ANION GAP 10 (8-16); CALCIUM 7.5 mg/dL (8.5-10.1); CO2 25 mmol/L (21-32)
[2016-07-03 08:46] LABS: ALK PHOS 55 U/L (45-117); BILIRUBIN,TOTAL 0.8 mg/dL (0.2-1.0); COCKROFT - GAULT 106.7685; CREATININE 0.6 mg/dL (0.55-1.02); GLUCOSE,RANDOM 97 mg/dL (74-106); SGOT/AST 15 U/L (15-37); SGPT/ALT 17 U/L (12-78); TOT PROT 4.3 g/dl (6.4-8.2)
[2016-07-03] MEDS: levETIRAcetam 500 MG/5 ML INJECTION VIAL IVPB SCH ×2 (09:11→21:51)
[2016-07-03] MEDS: ACETAMINOPHEN 650 MG SUPP.RECT PR PRN (09:11)
--- NOTE | 2016-07-03 09:53 | PN ---
Physical Exam: SUBJECTIVE: Patient seen and examined. Had facial grimacing, appears to be in pain. OBJECTIVE: Patient yelling, facial grimacing, appears to be in pain, morphine 0.5mg x 1 ordered for acute pain 102.8 f fever reported to me by primary RN, monique x 1 ordered, re-consult with ID repeat blood culture, repeat UA and urine culture Cormier for prolonged immobility and accurate intake and output Vital Signs Period Temp Pulse Resp BP Sys/Blake Pulse Ox Last 24 Hr 10.4 F-99.5 F 69-100 18-20 105-155/43-97 NEURO: The patient is moaning, appears to be in pain, morphine ordered HEAD: No signs of trauma. EYES: PERRL, extraocular movements not tested; sclera anicteric, conjunctiva clear. No ptosis. ENT: Ears normal, nares patent, oropharynx clear without exudates, moist mucous membranes. NECK: Trachea midline, full range of motion, supple. LUNGS: no wheezes, no crackles, no accessory muscle use HEART: Regular rate and rhythm ABDOMEN: Soft, nontender, nondistended, normoactive bowel sounds, NGT in place UPPER EXTREMITIES: 1+ bilateral edema, warm, well-perfused, 2+ pulses LOWER EXTREMITIES: 2+ left pedal edema; warm, well-perfused, 2+ pulses Laboratory Results - last 24 hr 07/02/16 07/02/16 07/03/16 17:28 22:25 06:00 WBC 9.3 RBC 3.52 L Hgb 10.3 L Hct 30.2 L MCV 86.0 MCHC 34.1 RDW 18.5 H Plt Count 65 L D MPV 9.2 Neutrophils % 82.3 Lymphocytes % 8.2 D Monocytes % 7.2 Eosinophils % 1.9 D Basophils % 0.4 Sodium Potassium Chloride Carbon Dioxide Anion Gap BUN Creatinine Creat Clearance w eGFR POC Glucometer 148 109 Random Glucose Calcium Total Bilirubin AST ALT Alkaline Phosphatase Total Protein Albumin 07/03/16 07/03/16 06:00 06:06 WBC RBC Hgb Hct MCV MCHC RDW Plt Count MPV Neutrophils % Lymphocytes % Monocytes % Eosinophils % Basophils % Sodium 144 Potassium 3.7 Chloride 109 H Carbon Dioxide 25 Anion Gap 10 BUN 15 Creatinine 0.6 Creat Clearance w eGFR > 60 POC Glucometer 98 Random Glucose 97 D Calcium 7.5 L Total Bilirubin 0.8 AST 15 ALT 17 Alkaline Phosphatase 55 Total Protein 4.3 L Albumin 2.0 L Active Medications Generic Name Dose Route Start Last Admin Trade Name Calq PRN Reason Stop Dose Admin Acetaminophen 650 mg 07/02/16 12:36 07/03/16 09:11 Tylenol Suppository - SD 650 mg Q6H PRN Administration FEVER OR PAIN Piperacillin Sod/Tazobactam 50 mls @ 100 mls/hr 07/03/16 09:48 Sod 3.375 gm/ Dextrose IVPB 07/03/16 10:17 ONCE ONE Protocol Levetiracetam 750 mg 06/29/16 22:00 07/03/16 09:11 Keppra Injection - IVPB 750 mg BID [facility]IN Administration Metoprolol Tartrate 5 mg 06/30/16 10:23 07/03/16 04:38 Lopressor Injection - IVPUSH 5 mg Q6H [facility]IN Administration Metoprolol Tartrate 5 mg 06/30/16 10:23 06/30/16 18:20 Lopressor Injection - IVPUSH 5 mg Q4H PRN Administration TACHYCARDIA Metoprolol Tartrate 12.5 mg 07/01/16 10:00 Lopressor - GT BID [facility]IN Morphine Sulfate 0.5 mg 07/03/16 09:46 Morphine Injection - IVPUSH 07/03/16 09:47 ONCE ONE Ranitidine HCl 150 mg 07/03/16 10:00 Zantac Oral Solution - GT DAILY [facility] ASSESSMENT/PLAN: Patient is an 80 year old female with a significant past medical history of hypertension, Parkinsons disease, metastatic malignant melanoma, multiple joint replacements. She was admitted on 06/24/2016 with intercerebral hemorrhage, UTI and atrial fibrillation. Imaging: CT scan of head 06/28/2016 - since 06/26/16, there remains moderate atrophy, ventricular dilatation and chronic microvascular iscdhemic changes, acute/ subacutre hemorrhage in the right temporal lobe is again seen without any signficant interval change in size or appearance. Mild surrounding edema is again seen. Brain MRI 07/02/2016 - A 1.7 acute/subacute right temporal lobe hemorrhage is seen without definite interval change in comparision to recent CT studies of 04/30, 06/26/2016 and 06/24/2016. No julissa hemorrhagic edema is identified on the current exam. Probable minimal to mild perihermorrhagic edema on the prior CT studies. No obvious underlying lesion. Neuro: Acute/subacute intracranial hemorrhage - no acute changes as per brain MRI Assessment/Plan: s/p ICU, now on telemonitoring Can follow simple commands, but remains non verbal, eyes opened briefly On Keppra 750mg IVPB BID for seizure precautions has NGT tube for medications Seems to be tolerating feeds, will stop IVF Neuro checks ID: Fever - unknown source Assessment/Plan: possible sepsis: UTI/ESBL source, vs. central line Gave one stat dose of Zosyn x 1, blood culture and urine culture repeated Urine cult of 07/02 with lactose ferm. neg bacilli lactic acid pending Will order NS @100cc/hr Cormier to monitor intake and output Hematology: Thrombocytopenia - acute Assessment/Plan: platelets 104>68, may be due to sepsis d/kevin protonix, pantropazole-induced thrombocytopenia? Re-consulted ID, now on Ertapenem and Vanco x 1 If continues to have fevers will consider removing TLC Cardiology: Paroxysmal atrial fibrillation with RVR/Hypertension Assessment/Plan: On Lopressor 12.5mg through GT, On Metoprolol 5mg push Q6, Lopressor 5mg q6 for tachycardia No anticoagulants secondary to intercerebral hemorrhage Monitor BP Oncology: Metastatic melanoma - history Assessment/Plan: history of large left upper lobe mass as per medical record, seen by oncologist but patient chose not to treat lobe mass F.E.N. Fluids: jevity 1.5 with 30cc/hr water flushes: IVF NS @100c/hr Electrolytes: hypokalemia resolved Nutrition: jevity 1.5 with 30cc/hr water flushes DVT prophylaxis: hold chemical prophylaxis secondary to acute/subacute intracranial hemorrhage GI: prophylaxis: zantac Disposition: continues to require inpatient care. Palliative care consult to discuss goals of care. Full Code. Visit type - Emergency Visit Emergency Visit: Yes ED Registration Date: 06/24/16 Care time: The patient presented to the Emergency Department on the above date and was hospitalized for further evaluation of their emergent condition. - New Patient This patient is new to me today: No - Critical Care Critical Care patient: No - Discharge Referral Referred to [facility] Med P.C.: No
[2016-07-03] MEDS ORDERED: PIPERACILLIN/TAZOB 3.375 GM 50 ML IVPB ONE (10:15)
[2016-07-03] MEDS ORDERED: morphine CARPU-JECT 2 MG/1 ML DISP.SYRIN IVPUSH ONE (10:15)
--- NOTE | 2016-07-03 10:23 | PN ---
Progress Note, Physician History of Present Illness: No events overnight Tele:NSR to 101, no Afib seen - Current Medication List Current Medications: Active Medications Acetaminophen (Tylenol Suppository -) 650 mg SD Q6H PRN PRN Reason: FEVER OR PAIN Last Admin: 07/03/16 09:11 Dose: 650 mg Piperacillin Sod/Tazobactam Sod (Zosyn 3.375gm Ivpb (Pre-Docked)) 50 mls @ 100 mls/hr IVPB ONCE ONE PRN Reason: Protocol Stop: 07/03/16 10:44 Levetiracetam (Keppra Injection -) 750 mg IVPB BID [facility] Last Admin: 07/03/16 09:11 Dose: 750 mg Metoprolol Tartrate (Lopressor Injection -) 5 mg IVPUSH Q6H [facility] Last Admin: 07/03/16 09:56 Dose: 5 mg Metoprolol Tartrate (Lopressor Injection -) 5 mg IVPUSH Q4H PRN PRN Reason: TACHYCARDIA Last Admin: 06/30/16 18:20 Dose: 5 mg Metoprolol Tartrate (Lopressor -) 12.5 mg GT BID [facility] Ranitidine HCl (Zantac Oral Solution -) 150 mg GT DAILY [facility] - Objective Vital Signs: Vital Signs Temperature 10.4 F L 07/03/16 06:37 Pulse Rate 92 H 07/03/16 09:56 Respiratory Rate 20 07/03/16 06:50 Blood Pressure 109/58 07/03/16 09:56 O2 Sat by Pulse Oximetry (%) 98 07/02/16 09:00 Constitutional: Yes: Other (Minimally response, moans to stimuli) Neck: Yes: Supple Cardiovascular: Yes: Regular Rate and Rhythm Respiratory: Yes: CTA Bilaterally Extremities: Yes: WNL Edema: No Labs: CBC, BMP 07/03/16 06:00 07/03/16 06:00 INR, PTT INR 1.05 (0.82-1.09) 06/24/16 16:15 Assessment/Plan a/p: 80 year old woman, history of HTN, pafib, dementia, parkinsons disease, GERD, lung mass, depression, bilateral hip replacement, presented to ED for altered mental status for one day and found to have Acute-subacute embolic hemorrhagic stroke, UTI and afib. acute temporal lobe hemorrhage: -bp control to targets per neuro -no AC or anti-plt's at present per neuro/neurosurgery -neuro and neurosurgery following (conservative mgmt) paroxysmal afib: -episodes of rapid PAF while here -currently in SR -bp was low so had tried amio gtt but HR remained fast and she seems to respond better to iv lopressor so amio was stopped and have been using standing iv lopressor until able to take po meds. -cont tele. -will need to address if pt is able to take po meds safely as will likely need raw products director rate control meds -CHADS-VASC 4 (vs 5?...if cad) -no AC until cleared by neuro/neurosurgery -? if the ICH was due to acute embolic CVA--neuro notes not suggesting this but possibility raised by neuro surgery--h/o metastatic malignant melanoma noted HTN: -bp had been low, now improved -unable to take po meds, will cont with iv lopressor for bp control possible CAD: -"small, subtle" apical defect suggestive of ischemia on 2014 nuclear here -not followed by cardio in our office -no acute tx changes at the moment in any event -outpt cardio f/u once stable neurologically -trop x 2 here unremarkable echo with density on mitral valve - Patient here with UTI, but no evidence of bacteremia and now off abx per ID. Lesion likely secondary to MAC. metastatic melanoma (to lungs): -per onc, pmd hypokalemia: -cont repletion prn
[2016-07-03] MEDS: RANITIDINE HCL 150 MG/10 ML UNIT-DOSE CUP GT SCH (11:05)
[2016-07-03 11:53] LABS: URINE APPEARANCE CLOUDY; URINE BILIRUBIN NEGATIVE (NEGATIVE); URINE COLOR YELLOW; URINE GLUCOSE (UA) 1+ (NEGATIVE); URINE KETONE NEGATIVE (NEGATIVE); URINE NITRITE POSITIVE (NEGATIVE); URINE PROTEIN NEGATIVE (NEGATIVE); URINE UROBILINOGEN NEGATIVE E.U./dl (0.2-1.0)
[2016-07-03 11:55] LABS: URINE BLOOD 2+ (NEGATIVE); URINE LEUK ESTERASE 3+ (NEGATIVE)
[2016-07-03 11:57] LABS: URINE BACTERIA MANY /hpf (NONE SEEN); URINE HYALINE CAST 3 /lpf; URINE MUCUS MODERATE; URINE RBC 40 /hpf (0-3); URINE WBC 315 /hpf (3-5)
--- NOTE | 2016-07-03 12:51 | PN ---
Progress Note, Physician History of Present Illness: Pt spiked high grade temp 102+ Moaning; unable to offer focal complaint Breathing non-labored Urine concentrated - Current Medication List Current Medications: Active Medications Acetaminophen (Tylenol Suppository -) 650 mg OH Q6H PRN PRN Reason: FEVER OR PAIN Last Admin: 07/03/16 09:11 Dose: 650 mg Levetiracetam (Keppra Injection -) 750 mg IVPB BID [facility] Last Admin: 07/03/16 09:11 Dose: 750 mg Metoprolol Tartrate (Lopressor Injection -) 5 mg IVPUSH Q6H [facility] Last Admin: 07/03/16 09:56 Dose: 5 mg Metoprolol Tartrate (Lopressor Injection -) 5 mg IVPUSH Q4H PRN PRN Reason: TACHYCARDIA Last Admin: 06/30/16 18:20 Dose: 5 mg Metoprolol Tartrate (Lopressor -) 12.5 mg GT BID [facility] Ranitidine HCl (Zantac Oral Solution -) 150 mg GT DAILY [facility] Last Admin: 07/03/16 11:05 Dose: 150 mg - Objective Vital Signs: Vital Signs Temperature 10.4 F L 07/03/16 06:37 Pulse Rate 92 H 07/03/16 09:56 Respiratory Rate 20 07/03/16 06:50 Blood Pressure 109/58 07/03/16 09:56 O2 Sat by Pulse Oximetry (%) 98 07/02/16 09:00 Constitutional: Yes: No Distress, Obese Cardiovascular: Yes: Regular Rate and Rhythm, S1, S2 Respiratory: Yes: Diminished Gastrointestinal: Yes: Normal Bowel Sounds, Soft, Abdomen, Obese. No: Tenderness Edema: Yes Integumentary: Yes: Other (CVP L neck) Labs: CBC, BMP 07/03/16 06:00 07/03/16 06:00 INR, PTT INR 1.05 (0.82-1.09) 06/24/16 16:15 Assessment/Plan UTI/ possible sepsis secondary to UTI Possible catheter-related sepsis Hx ESBL in urine Thrombocytopenia, possibly secondary to sepsis await c/s empiric ertapenem + stat dose vancomycin consider removing CVP
[2016-07-03] MEDS ORDERED: morphine CARPU-JECT 2 MG/1 ML DISP.SYRIN IVPUSH PRN (14:56)
[2016-07-03] MEDS: VANCOMYCIN 1 GRAM (PRE-DOCKED) 250 ML IVPB ONE ×2 (15:01→15:02)
[2016-07-03] MEDS: SODIUM CHLORIDE 1,000 ML IV SCH (17:02)
[2016-07-03] MEDS: ERTAPENEM SODIUM 1 GM in SODIUM CHLORIDE 50 ML IVPB SCH (17:02)
[2016-07-03] MEDS ORDERED: SODIUM CHLORIDE 1,000 ML IV STA (18:13)
[2016-07-03] MEDS ORDERED: BISACODYL 10 MG SUPP.RECT PR ONE (20:00)
[2016-07-04] MEDS: METOPROLOL TARTRATE 5 MG/5 ML VIAL IVPUSH SCH ×3 (05:38→17:39)
[2016-07-04] MEDS: SODIUM CHLORIDE 1,000 ML IV SCH (06:50)
[2016-07-04 07:54] LABS: ALBUMIN 1.8 g/dl (3.4-5.0); ANION GAP 11 (8-16); CALCIUM 7.1 mg/dL (8.5-10.1); CO2 25 mmol/L (21-32); CREATININE 0.5 mg/dL (0.55-1.02); GLUCOSE,RANDOM 92 mg/dL (74-106); SGOT/AST 17 U/L (15-37); SGPT/ALT 15 U/L (12-78)
[2016-07-04 07:57] LABS: ALK PHOS 49 U/L (45-117); BILIRUBIN,TOTAL 0.6 mg/dL (0.2-1.0)
[2016-07-04 08:08] LABS: BASOPHIL 0.4 % (0-2.0); EOSINOPHIL 0.7 % (0-4.5); MCH 29.3 pg (25.7-33.7); MCHC 33.9 g/dl (32.0-36.0); MEAN CELL VOLUME 86.5 fl (80-96); MEAN PLT VOLUME 9.2 fl (7.5-11.1); NEUTROPHILS 76.8 % (42.8-82.8); PLATELET COUNT 62 K/MM3 (134-434); RDW 18.7 % (11.6-15.6); WHITE BLOOD COUNT 8.5 K/mm3 (4.0-10.0)
[2016-07-04] MEDS ORDERED: morphine CARPU-JECT 2 MG/1 ML DISP.SYRIN IVPUSH PRN (08:40)
[2016-07-04] MEDS ORDERED: KCL 10 MEQ IVPB 100 ML IVPB SCH (09:00)
--- NOTE | 2016-07-04 09:06 | PN ---
Physical Exam: SUBJECTIVE: Patient seen and examined. Was yelling with facial grimacing. OBJECTIVE: Patient resting in bed, in no acute distress Was yelling earlier, appeared to be in pain/distress: morphine increased to 2mg prn q4 Thrombocytopenia persists, pt/inr ordered Lactic acidosis resolved, low grade fevers overnight Vital Signs Period Temp Pulse Resp BP Sys/Blake Pulse Ox Last 24 Hr 97.8 F-100.4 F 88-96 19-20 85-138/30-80 96 NEURO: The patient is moaning, appears to be in pain, morphine dose increased HEAD: No signs of trauma. EYES: PERRL, extraocular movements not tested; sclera anicteric, conjunctiva clear. No ptosis. ENT: Ears normal, nares patent, oropharynx clear without exudates, moist mucous membranes. NECK: Trachea midline, full range of motion, supple. LUNGS: no wheezes, no crackles, no accessory muscle use HEART: sinus rhythm @85 on chute feeder ABDOMEN: Soft, nontender, nondistended, normoactive bowel sounds, NGT in place UPPER EXTREMITIES: 1+ bilateral edema, warm, well-perfused, 2+ pulses LOWER EXTREMITIES: 2+ left pedal edema; warm, well-perfused, 2+ pulses Laboratory Results - last 24 hr 07/03/16 07/03/16 07/03/16 11:00 15:06 17:00 WBC RBC Hgb Hct MCV MCHC RDW Plt Count MPV Neutrophils % Lymphocytes % Monocytes % Eosinophils % Basophils % Sodium Potassium Chloride Carbon Dioxide Anion Gap BUN Creatinine Creat Clearance w eGFR POC Glucometer 134 Random Glucose Lactic Acid 2.346 H* Calcium Total Bilirubin AST ALT Alkaline Phosphatase Total Protein Albumin Urine Color Yellow Urine Appearance Cloudy Urine pH 5.0 Ur Specific [place] 1.017 Urine Protein Negative Urine Glucose (UA) 1+ H Urine Ketones Negative Urine Blood 2+ H Urine Nitrite Positive Urine Bilirubin Negative Urine Urobilinogen Negative Ur Leukocyte Esterase 3+ H Urine RBC 40 Urine WBC 315 Ur Epithelial Cells Rare Urine Bacteria Many Hyaline Casts 3 Urine Mucus Moderate 07/03/16 07/03/16 07/04/16 21:40 22:15 05:35 WBC 8.5 RBC 3.21 L Hgb 9.4 L Hct 27.8 L MCV 86.5 MCHC 33.9 RDW 18.7 H Plt Count 62 L MPV 9.2 Neutrophils % 76.8 Lymphocytes % 14.0 D Monocytes % 8.1 Eosinophils % 0.7 Basophils % 0.4 Sodium Potassium Chloride Carbon Dioxide Anion Gap BUN Creatinine Creat Clearance w eGFR POC Glucometer 105 Random Glucose Lactic Acid 1.494 Calcium Total Bilirubin AST ALT Alkaline Phosphatase Total Protein Albumin Urine Color Urine Appearance Urine pH Ur Specific [place] Urine Protein Urine Glucose (UA) Urine Ketones Urine Blood Urine Nitrite Urine Bilirubin Urine Urobilinogen Ur Leukocyte Esterase Urine RBC Urine WBC Ur Epithelial Cells Urine Bacteria Hyaline Casts Urine Mucus 07/04/16 07/04/16 05:35 05:49 WBC RBC Hgb Hct MCV MCHC RDW Plt Count MPV Neutrophils % Lymphocytes % Monocytes % Eosinophils % Basophils % Sodium 146 H Potassium 3.4 L Chloride 110 H Carbon Dioxide 25 Anion Gap 11 BUN 15 Creatinine 0.5 L Creat Clearance w eGFR > 60 POC Glucometer 103 Random Glucose 92 Lactic Acid Calcium 7.1 L Total Bilirubin 0.6 D AST 17 ALT 15 Alkaline Phosphatase 49 Total Protein 4.0 L Albumin 1.8 L Urine Color Urine Appearance Urine pH Ur Specific [place] Urine Protein Urine Glucose (UA) Urine Ketones Urine Blood Urine Nitrite Urine Bilirubin Urine Urobilinogen Ur Leukocyte Esterase Urine RBC Urine WBC Ur Epithelial Cells Urine Bacteria Hyaline Casts Urine Mucus Active Medications Generic Name Dose Route Start Last Admin Trade Name Freq PRN Reason Stop Dose Admin Acetaminophen 650 mg 07/02/16 12:36 07/03/16 09:11 Tylenol Suppository - DE 650 mg Q6H PRN Administration FEVER OR PAIN Ertapenem 1 gm/ Sodium 50 mls @ 100 mls/hr 07/03/16 13:00 07/03/16 17:02 Chloride IVPB 100 mls/hr DAILY [facility] Administration Protocol Potassium Chloride 100 mls @ 100 mls/hr 07/04/16 09:00 07/04/16 08:43 Potassium Chloride 10 Meq Premix Ivpb - IVPB 07/04/16 09:59 100 mls/hr Q60M ERIN Administration Levetiracetam 750 mg 06/29/16 22:00 07/03/16 21:51 Keppra Injection - IVPB 750 mg BID ERIN Administration Metoprolol Tartrate 5 mg 06/30/16 10:23 07/04/16 05:38 Lopressor Injection - IVPUSH 5 mg Q6H ERIN Administration Metoprolol Tartrate 5 mg 06/30/16 10:23 06/30/16 18:20 Lopressor Injection - IVPUSH 5 mg Q4H PRN Administration TACHYCARDIA Metoprolol Tartrate 12.5 mg 07/01/16 10:00 Lopressor - GT BID ERIN Morphine Sulfate 2 mg 07/04/16 08:40 07/04/16 09:02 Morphine Injection - IVPUSH 2 mg Q4H PRN Administration PAIN Ranitidine HCl 150 mg 07/03/16 10:00 07/03/16 11:05 Zantac Oral Solution - GT 150 mg DAILY [facility]IN Administration ASSESSMENT/PLAN: Patient is an 80 year old female with a significant past medical history of hypertension, Parkinsons disease, metastatic malignant melanoma, multiple joint replacements. She was admitted on 06/24/2016 with intercerebral hemorrhage, UTI and atrial fibrillation. Imaging: CT scan of head 06/28/2016 - since 06/26/16, there remains moderate atrophy, ventricular dilatation and chronic microvascular iscdhemic changes, acute/ subacutre hemorrhage in the right temporal lobe is again seen without any signficant interval change in size or appearance. Mild surrounding edema is again seen. Brain MRI 07/02/2016 - A 1.7 acute/subacute right temporal lobe hemorrhage is seen without definite interval change in comparision to recent CT studies of 04/30, 06/26/2016 and 06/24/2016. No julissa hemorrhagic edema is identified on the current exam. Probable minimal to mild perihermorrhagic edema on the prior CT studies. No obvious underlying lesion. Neuro: Acute/subacute intracranial hemorrhage - no acute changes as per brain MRI Assessment/Plan: s/p ICU, now on telemonitoring Can follow simple commands, but remains non verbal, eyes opened briefly On Keppra 750mg IVPB BID for seizure precautions has NGT tube for medications Seems to be tolerating feeds, d/c iv fluids Neuro checks As per neurosurgery, no acute intervention ID: Fever - unknown source Assessment/Plan: possible sepsis: UTI/ESBL source, vs. central line Had one stat dose of Zosyn and Vancomycin yesterday, now on Ertapenem blood culture and urine culture repeated Urine cult of 07/02 with lactose ferm. neg bacilli, repeat urine cultures growing non lact ferm. lactic acid now normalized Cormier to monitor intake and output Hematology: Thrombocytopenia - acute Assessment/Plan: platelets 104>62, may be due to sepsis d/kevin protonix, pantropazole-induced thrombocytopenia? Re-consulted ID, now on Ertapenem Pt/inr ordered, if platelets continue to drop will consult home energy consultant supervisor Cardiology: Paroxysmal atrial fibrillation with RVR/Hypertension Assessment/Plan: On Lopressor 12.5mg through GT, On Metoprolol 5mg push Q6, Lopressor 5mg q6 for tachycardia No anticoagulants secondary to intercerebral hemorrhage Monitor BP Oncology: Metastatic melanoma - history Assessment/Plan: history of large left upper lobe mass as per medical record, seen by oncologist but patient chose not to treat lobe mass F.E.N. Fluids: jevity 1.5 with 30cc/hr water flushes Electrolytes: mild hypokalemia 3.4 - 1 K rider Nutrition: jevity 1.5 with 30cc/hr water flushes DVT prophylaxis: hold chemical prophylaxis secondary to acute/subacute intracranial hemorrhage - on SCDs stockings GI: prophylaxis: zantac Disposition: continues to require inpatient care. Palliative care consult to discuss goals of care. Full Code. Visit type - Emergency Visit Emergency Visit: Yes ED Registration Date: 06/24/16 Care time: The patient presented to the Emergency Department on the above date and was hospitalized for further evaluation of their emergent condition. - New Patient This patient is new to me today: No - Critical Care Critical Care patient: No - Discharge Referral Referred to [facility] Med P.C.: No
[2016-07-04] MEDS: RANITIDINE HCL 150 MG/10 ML UNIT-DOSE CUP GT SCH (09:07)
[2016-07-04] MEDS: levETIRAcetam 500 MG/5 ML INJECTION VIAL IVPB SCH ×2 (09:07→22:26)
[2016-07-04 09:33] LABS: INR 1.19 (0.82-1.09); PROTHROMBIN TIME (PATIENT) 13.1 SEC (9.98-11.88)
[2016-07-04] MEDS: ERTAPENEM SODIUM 1 GM in SODIUM CHLORIDE 50 ML IVPB SCH ×2 (11:04→13:43)
--- NOTE | 2016-07-04 11:10 | PN ---
Progress Note (short form) - Note Progress Note: Neurology Progress Note (short form) 80 year old woman, history of parkinsons disease, hypertension, bilateral hip replacement, presented to ED for altered mental status for one day. On arrival, u/a+ with leukocytosis, increased lactic acid, enlarging lung mass, and atrial fibrillation noted. She was seen by Dr. Vinson. CT head showed evidence of right temporal acute/subacute hemorrhage. Neurology and Neurosurgery consulted for findings. As per neurosurgery, no acute intervention. Recommend blood pressure control and keppra for seizure prophylaxis. There was concern for somnolence and patient completed MRI brain as repeat CT head imaging was stable. MRI showed finidings consistent with right temporal acute/subacute hemorrhage. No significant worsening. Of note, there was no infarction noted either as there was concern for ischemic event. Active Medications Acetaminophen (Tylenol Suppository -) 650 mg [place] Q6H PRN PRN Reason: FEVER OR PAIN Last Admin: 07/03/16 09:11 Dose: 650 mg Ertapenem 1 gm/ Sodium (Chloride) 50 mls @ 100 mls/hr IVPB DAILY [facility] PRN Reason: Protocol Last Admin: 07/04/16 11:04 Dose: Not Given Levetiracetam (Keppra Injection -) 750 mg IVPB BID [facility] Last Admin: 07/04/16 09:07 Dose: 750 mg Metoprolol Tartrate (Lopressor Injection -) 5 mg IVPUSH Q6H [facility] Last Admin: 07/04/16 11:07 Dose: 5 mg Metoprolol Tartrate (Lopressor Injection -) 5 mg IVPUSH Q4H PRN PRN Reason: TACHYCARDIA Last Admin: 06/30/16 18:20 Dose: 5 mg Metoprolol Tartrate (Lopressor -) 12.5 mg GT BID [facility] Morphine Sulfate (Morphine Injection -) 2 mg IVPUSH Q4H PRN PRN Reason: PAIN Last Admin: 07/04/16 09:02 Dose: 2 mg Ranitidine HCl (Zantac Oral Solution -) 150 mg GT DAILY [facility] Last Admin: 07/04/16 09:07 Dose: 150 mg Vital Signs Temperature 98.7 F 07/04/16 05:52 Pulse Rate 82 07/04/16 11:07 Respiratory Rate 20 07/04/16 05:52 Blood Pressure 107/50 07/04/16 11:07 O2 Sat by Pulse Oximetry (%) 96 07/03/16 21:00 Constitutional: Yes: No Distress Eyes: Yes: Conjunctiva Clear, EOM Intact HENT: Yes: Atraumatic, Normocephalic Cardiovascular: Yes: S1, S2 Neurological: Yes: Cran Nerves II-XII Intact, opens eyes to verbal command, sticks out tongue to command, blinks to visual threat, did not participate in confrontational testing, sensory intact Assessment/Plan 80 year old woman, history of parkinsons disease, hypertension, bilateral hip replacement, presented to ED for altered mental status for one day. On arrival, u/a+ with leukocytosis, increased lactic acid, enlarging lung mass, and atrial fibrillation noted. She was seen by Dr. Vinson. CT head showed evidence of right temporal acute/subacute hemorrhage. CT head showed evidence of right temporal acute/subacute hemorrhage. As per neurosurgery, no acute intervention. MRI showed finidings consistent with right temporal acute/subacute hemorrhage. No significant worsening. Of note, there was no infarction noted either as there was concern for ischemic event. . Seizure ppx. Would continue to treat underlying medical complications (UTI, decreased PO intake) as somnolence may be systemic if no significant changes on brain imaging.
--- NOTE | 2016-07-04 14:31 | PN ---
Progress Note, Physician History of Present Illness: Appears more comfortable Temps down; afebrile BC (-) Urine c/s GNR WBC WNL plt 62 - Current Medication List Current Medications: Active Medications Acetaminophen (Tylenol Suppository -) 650 mg [place] Q6H PRN PRN Reason: FEVER OR PAIN Last Admin: 07/03/16 09:11 Dose: 650 mg Ertapenem 1 gm/ Sodium (Chloride) 50 mls @ 100 mls/hr IVPB DAILY [facility] PRN Reason: Protocol Last Admin: 07/04/16 13:43 Dose: 100 mls/hr Levetiracetam (Keppra Injection -) 750 mg IVPB BID [facility] Last Admin: 07/04/16 09:07 Dose: 750 mg Metoprolol Tartrate (Lopressor Injection -) 5 mg IVPUSH Q6H [facility] Last Admin: 07/04/16 11:07 Dose: 5 mg Metoprolol Tartrate (Lopressor Injection -) 5 mg IVPUSH Q4H PRN PRN Reason: TACHYCARDIA Last Admin: 06/30/16 18:20 Dose: 5 mg Metoprolol Tartrate (Lopressor -) 12.5 mg GT BID [facility] Morphine Sulfate (Morphine Injection -) 2 mg IVPUSH Q4H PRN PRN Reason: PAIN Last Admin: 07/04/16 09:02 Dose: 2 mg Ranitidine HCl (Zantac Oral Solution -) 150 mg GT DAILY [facility] Last Admin: 07/04/16 09:07 Dose: 150 mg - Objective Vital Signs: Vital Signs Temperature 99 F 07/04/16 10:00 Pulse Rate 82 07/04/16 11:07 Respiratory Rate 20 07/04/16 10:00 Blood Pressure 107/50 07/04/16 11:07 O2 Sat by Pulse Oximetry (%) 96 07/03/16 21:00 Constitutional: Yes: No Distress Eyes: Yes: Conjunctiva Clear Cardiovascular: Yes: Regular Rate and Rhythm, S1, S2 Respiratory: Yes: Diminished Gastrointestinal: Yes: Normal Bowel Sounds, Abdomen, Obese. No: Tenderness Labs: CBC, BMP 07/04/16 05:35 07/04/16 05:35 INR, PTT INR 1.19 (0.82-1.09) H 07/04/16 09:00 Assessment/Plan UTI/ possible sepsis secondary to UTI Hx ESBL in urine Thrombocytopenia, possibly secondary to sepsis await c/s Continue empiric ertapenem
--- NOTE | 2016-07-04 17:04 | PN ---
Progress Note (short form) - Note Progress Note: CC: afib No events overnight Current Medications Acetaminophen (Tylenol Suppository -) 650 mg [place] Q6H PRN PRN Reason: FEVER OR PAIN Last Admin: 07/03/16 09:11 Dose: 650 mg Ertapenem 1 gm/ Sodium (Chloride) 50 mls @ 100 mls/hr IVPB DAILY [facility] PRN Reason: Protocol Last Admin: 07/04/16 13:43 Dose: 100 mls/hr Levetiracetam (Keppra Injection -) 750 mg IVPB BID [facility] Last Admin: 07/04/16 09:07 Dose: 750 mg Metoprolol Tartrate (Lopressor Injection -) 5 mg IVPUSH Q6H ERIN Last Admin: 07/04/16 11:07 Dose: 5 mg Metoprolol Tartrate (Lopressor Injection -) 5 mg IVPUSH Q4H PRN PRN Reason: TACHYCARDIA Last Admin: 06/30/16 18:20 Dose: 5 mg Metoprolol Tartrate (Lopressor -) 12.5 mg GT BID [facility] Morphine Sulfate (Morphine Injection -) 2 mg IVPUSH Q4H PRN PRN Reason: PAIN Last Admin: 07/04/16 09:02 Dose: 2 mg Ranitidine HCl (Zantac Oral Solution -) 150 mg GT DAILY [facility] Last Admin: 07/04/16 09:07 Dose: 150 mg Vital Signs - 24 hr 07/03/16 07/03/16 07/03/16 18:00 21:00 21:57 Temperature 98.9 F Pulse Rate 88 91 H Respiratory 19 Rate Blood Pressure 105/31 131/51 O2 Sat by Pulse 96 Oximetry (%) 07/03/16 07/04/16 07/04/16 22:00 02:00 05:38 Temperature 99.8 F H 97.8 F Pulse Rate 89 94 H 88 Respiratory 20 20 Rate Blood Pressure 131/51 117/80 138/61 O2 Sat by Pulse Oximetry (%) 07/04/16 07/04/16 07/04/16 05:52 09:00 10:00 Temperature 98.7 F 99 F Pulse Rate 96 H 85 Respiratory 20 20 Rate Blood Pressure 138/61 107/50 O2 Sat by Pulse 95 Oximetry (%) 07/04/16 11:07 Temperature Pulse Rate 82 Respiratory Rate Blood Pressure 107/50 O2 Sat by Pulse Oximetry (%) Intake & Output 07/02/16 07/03/16 07/04/16 07/05/16 07:59 07:59 07:59 07:59 Intake Total 500 1825 2600 Output Total 600 2300 500 Balance 500 1225 300 -500 Constitutional: Yes: Other (Minimally response, moans to stimuli) Neck: Yes: Supple Cardiovascular: Yes: irregular Rate and Rhythm Respiratory: Yes: bibasilar dullness. Extremities: Yes: WNL Edema: No Labs: CBC, BMP 07/04/16 05:35 07/04/16 05:35 Tele:NSR, freq pac. 3 beat nsvt. brief self-limited svt. ekg 06/06: rapid AF, diffuse ST-Ts (changed vs 2014 prior) ekg #2 06/24: NSR, ST-Ts persist, though improved tele: NSR with occ pac's. episode of afib with RVR (HR up to 180's). Occasional PVC's, couplets. --> currently in SR echo: nl lv size/fn. nl rv size, no mention of fn. impaired LV relaxation. 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 As per neurosurgery, no acute intervention. - subsequent head CT stable. Assessment/Plan a/p: 80 year old woman, history of HTN, pafib, dementia, parkinsons disease, GERD, lung mass, depression, bilateral hip replacement, presented to ED for altered mental status for one day and found to have Acute-subacute embolic hemorrhagic stroke, UTI and afib. acute temporal lobe hemorrhage: -bp control to targets per neuro -no AC or anti-plt's at present per neuro/neurosurgery -neuro and neurosurgery following (conservative mgmt) - thrombocytopenia, platelet transfusion today. paroxysmal afib: -episodes of rapid PAF while here, currently in SR -bp was low so had tried amio gtt but HR remained fast and she seems to respond better to iv lopressor so amio was stopped and have been using standing iv lopressor until able to take po meds. - 4/10 bp running low and with low grade temp. HR's controlled will switch standing IV lopressor to prn. -cont tele. -will need to address if pt is able to take po meds safely as will likely need halfway rate control meds -CHADS-VASC 4 (vs 5?...if cad) -no AC until cleared by neuro/neurosurgery -? if the ICH was due to acute embolic CVA--neuro notes not suggesting this but possibility raised by neuro surgery--h/o metastatic malignant melanoma noted - lyte repletion HTN: -bp remains low. metoprolol as above. possible CAD: -"small, subtle" apical defect suggestive of ischemia on 2014 nuclear here -not followed by cardio in our office -no acute tx changes at the moment in any event -outpt cardio f/u once/if stable neurologically -trop x 2 here unremarkable echo with density on mitral valve - Patient here with UTI, but no evidence of bacteremia and now off abx per ID. Lesion likely secondary to MAC. metastatic melanoma (to lungs): - large B[place] mass. + o2 requirement. Monitor oxygen closely. -per onc, pmd - 07/04: review of chest ct --> irregular pericardium, will review echo images to assess for possible cardiac mets. hypokalemia: -cont repletion prn
[2016-07-04] MEDS: ACETAMINOPHEN 650 MG SUPP.RECT PR PRN (17:36)
[2016-07-04] MEDS ORDERED: POTASSIUM CHLORIDE ORAL LIQUID 20 MEQ/15 ML PO ONE (18:08)
--- NOTE | 2016-07-04 20:01 | HOSP ---
Physical Examination Vital Signs: Vital Signs Temperature 99 F 07/04/16 10:00 Pulse Rate 82 07/04/16 11:07 Respiratory Rate 20 07/04/16 10:00 Blood Pressure 107/50 07/04/16 11:07 O2 Sat by Pulse Oximetry (%) 95 07/04/16 09:00 Labs: CBC, BMP 07/04/16 05:35 07/04/16 05:35 Hospitalist Encounter Assessment: Called sister Romeo Wong [facility] ([phone]) in order to obtain consent for platelets. [facility].
[2016-07-04] MEDS ORDERED: PT OWN MED DRAWER 7, Y5N ONE (22:22)
--- NOTE | 2016-07-05 00:34 | HOSP ---
Subjective - Review of Symptoms Events since last encounter: Late entry for 07/04/16 9PM. Received message from nurse that sister called back and gave another telephone number to reach her at. I called her at same number: [phone], and left a message for her to call back to obtain consent for platelets. Awaiting TC back. Physical Examination Vital Signs: Vital Signs Temperature 101.2 F H 07/04/16 17:00 Pulse Rate 92 H 07/04/16 17:00 Respiratory Rate 18 07/04/16 17:00 Blood Pressure 115/52 07/04/16 17:00 O2 Sat by Pulse Oximetry (%) 95 07/04/16 09:00 Labs: CBC, BMP 07/04/16 05:35 07/04/16 05:35
[2016-07-05 08:31] LABS: BASOPHIL 0.1 % (0-2.0); EOSINOPHIL 1.5 % (0-4.5); MCH 28.9 pg (25.7-33.7); MCHC 33.4 g/dl (32.0-36.0); MEAN CELL VOLUME 86.6 fl (80-96); NEUTROPHILS 74.7 % (42.8-82.8); PLATELET COUNT 71 K/MM3 (134-434); RDW 18.6 % (11.6-15.6); WHITE BLOOD COUNT 8.5 K/mm3 (4.0-10.0)
[2016-07-05 09:04] LABS: ALBUMIN 1.7 g/dl (3.4-5.0); ANION GAP 9 (8-16); BILIRUBIN,TOTAL 0.5 mg/dL (0.2-1.0); CALCIUM 7.7 mg/dL (8.5-10.1); CO2 28 mmol/L (21-32); GLUCOSE,RANDOM 106 mg/dL (74-106); SGOT/AST 13 U/L (15-37); SGPT/ALT 13 U/L (12-78)
[2016-07-05 09:05] LABS: ALK PHOS 51 U/L (45-117); CREATININE 0.5 mg/dL (0.55-1.02)
--- NOTE | 2016-07-05 09:13 | PN ---
Physical Exam: SUBJECTIVE: Patient seen and examined. Appears at her baseline, less verbal. Sister and HCP at the bedside. OBJECTIVE: appears fluid overloaded anterior lung sounds with course rhonchi +2 lower ext. pitting edema Lasix 40mg ivpush x 1 now 1 unit of platelets ordered yesterday but not given as we were unable to obtain consent from family despite numerous phone calls to HCP - platelets now 71 Patient's sister and HCP signed DNR/DNI paperwork in my presence. She would like to still continue IV antibiotics, continue NGT feeds, but no further invasive treatments (No peg tube). She will consider blood products for her sister if it will help relieve any symptoms. Goals of care are to continue treatment as we are currently doing, but if patient goes into cardiac arrest or respiratory arrest, do not perform CPR or intubation. Allow a natural . Monitor platelet function if worsens, consider platelet transfusion. Monitor trend. Vital Signs Period Temp Pulse Resp BP Sys/Blake Pulse Ox Last 24 Hr 98.0 F-101.2 F 80-92 18-20 95-122/33-52 94 NEURO: The patient is resting, briefly opens eyes. Appears comfortable. HEAD: No signs of trauma. EYES: PERRL, extraocular movements not tested; sclera anicteric, conjunctiva clear. No ptosis. ENT: Ears normal, nares patent, oropharynx clear without exudates, moist mucous membranes. NECK: Trachea midline, full range of motion, supple. LUNGS: no wheezes, no crackles, no accessory muscle use ABDOMEN: Soft, nontender, nondistended, normoactive bowel sounds, NGT in place UPPER EXTREMITIES: 1+ bilateral edema, warm, well-perfused, 2+ pulses LOWER EXTREMITIES: 2+ left pedal edema; warm, well-perfused, 2+ pulses Laboratory Results - last 24 hr 07/04/16 07/05/16 07/05/16 09:00 01:41 05:53 WBC RBC Hgb Hct MCV MCHC RDW Plt Count MPV Neutrophils % Lymphocytes % Monocytes % Eosinophils % Basophils % INR 1.19 H Sodium Potassium Chloride Carbon Dioxide Anion Gap BUN Creatinine Creat Clearance w eGFR POC Glucometer 114 128 Random Glucose Calcium Total Bilirubin AST ALT Alkaline Phosphatase Total Protein Albumin 07/05/16 07/05/16 06:10 06:10 WBC 8.5 RBC 3.19 L Hgb 9.2 L Hct 27.6 L MCV 86.6 MCHC 33.4 RDW 18.6 H Plt Count 71 L MPV 9.0 Neutrophils % 74.7 Lymphocytes % 14.9 Monocytes % 8.8 Eosinophils % 1.5 D Basophils % 0.1 INR Sodium 149 H Potassium 3.8 Chloride 112 H Carbon Dioxide 28 Anion Gap 9 BUN 17 Creatinine 0.5 L Creat Clearance w eGFR > 60 POC Glucometer Random Glucose 106 Calcium 7.7 L Total Bilirubin 0.5 AST 13 L D ALT 13 Alkaline Phosphatase 51 Total Protein 4.0 L Albumin 1.7 L Active Medications Generic Name Dose Route Start Last Admin Trade Name Freq PRN Reason Stop Dose Admin Acetaminophen 650 mg 07/02/16 12:36 07/04/16 17:36 Tylenol Suppository - [place] 650 mg Q6H PRN Administration FEVER OR PAIN Furosemide 40 mg 07/05/16 09:11 Lasix Injection - IVPUSH 07/05/16 09:12 ONCE ONE Ertapenem 1 gm/ Sodium 50 mls @ 100 mls/hr 07/03/16 13:00 07/04/16 13:43 Chloride IVPB 100 mls/hr DAILY [facility] Administration Protocol Levetiracetam 750 mg 06/29/16 22:00 07/04/16 22:26 Keppra Injection - IVPB 750 mg BID [facility] Administration Metoprolol Tartrate 5 mg 06/30/16 10:23 06/30/16 18:20 Lopressor Injection - IVPUSH 5 mg Q4H PRN Administration TACHYCARDIA Morphine Sulfate 2 mg 07/04/16 08:40 07/04/16 09:02 Morphine Injection - IVPUSH 2 mg Q4H PRN Administration PAIN Ranitidine HCl 150 mg 07/03/16 10:00 07/04/16 09:07 Zantac Oral Solution - GT 150 mg DAILY [facility] Administration ASSESSMENT/PLAN: Patient is an 80 year old female with a significant past medical history of hypertension, Parkinsons disease, metastatic malignant melanoma, multiple joint replacements. She was admitted on 06/24/2016 with intercerebral hemorrhage, UTI and atrial fibrillation. Imaging: CT scan of head 06/28/2016 - since 06/26/16, there remains moderate atrophy, ventricular dilatation and chronic microvascular iscdhemic changes, acute/ subacutre hemorrhage in the right temporal lobe is again seen without any signficant interval change in size or appearance. Mild surrounding edema is again seen. Brain MRI 07/02/2016 - A 1.7 acute/subacute right temporal lobe hemorrhage is seen without definite interval change in comparision to recent CT studies of 04/30, 06/26/2016 and 06/24/2016. No julissa hemorrhagic edema is identified on the current exam. Probable minimal to mild perihermorrhagic edema on the prior CT studies. No obvious underlying lesion. Neuro: Acute/subacute intracranial hemorrhage - no acute changes as per brain MRI Assessment/Plan: s/p ICU, now on telemonitoring Can follow simple commands, but remains non verbal, eyes opened briefly On Keppra 750mg IVPB BID for seizure precautions has NGT tube for medications Seems to be tolerating feeds Neuro checks, as per neurosurgery, no acute interventions ID: Fever Assessment/Plan: possible sepsis: UTI/ESBL source, vs. central line On Ertapenem started 07/03 blood culture pending, urine culture with UTI ESBL lactic acid now normalized Tmax 101F, monitor Cormier to monitor intake and output Hematology: Thrombocytopenia - improving Assessment/Plan: platelets 104>61>71, may be due to sepsis d/kevin protonix, pantropazole-induced thrombocytopenia? Attempted to give 1 unit of platelets yesterday but unable to obtain consent from HCP Platelets trending up to 71 today, monitor Consider platelets if thrombocytopenia persists Cardiology: Paroxysmal atrial fibrillation with RVR/Hypertension Assessment/Plan: On Lopressor 12.5mg through GT, On Metoprolol 5mg push Q6, Lopressor 5mg q6 for tachycardia No anticoagulants secondary to intercerebral hemorrhage Monitor BP Oncology: Metastatic melanoma - history Assessment/Plan: history of large left upper lobe mass as per medical record, seen by oncologist but patient chose not to treat lobe mass F.E.N. Fluids: jevity 1.5 with 30cc/hr water flushes Electrolytes: hypokalemia resolved Nutrition: jevity 1.5 with 30cc/hr water flushes DVT prophylaxis: hold chemical prophylaxis secondary to acute/subacute intracranial hemorrhage - on SCDs stockings GI: prophylaxis: zantac Disposition: continues to require inpatient care. DNR/DNI. Visit type - Emergency Visit Emergency Visit: Yes ED Registration Date: 06/24/16 Care time: The patient presented to the Emergency Department on the above date and was hospitalized for further evaluation of their emergent condition. - New Patient This patient is new to me today: No - Critical Care Critical Care patient: No - Discharge Referral Referred to [facility] Med P.C.: No
[2016-07-05] MEDS ORDERED: FUROSEMIDE 40 MG/4 ML INJECTABLE VIAL IVPUSH ONE (09:15)
[2016-07-05] MEDS: RANITIDINE HCL 150 MG/10 ML UNIT-DOSE CUP GT SCH (09:38)
[2016-07-05] MEDS: levETIRAcetam 500 MG/5 ML INJECTION VIAL IVPB SCH ×2 (09:38→21:40)
[2016-07-05] MEDS: ERTAPENEM SODIUM 1 GM in SODIUM CHLORIDE 50 ML IVPB SCH (09:39)
--- NOTE | 2016-07-05 11:57 | PN ---
Progress Note (short form) - Note Progress Note: CC: afib S: fever yesterday. unable to obtain ROS. patient remains minimally responsive. Current Medications Acetaminophen (Tylenol Suppository -) 650 mg [place] Q6H PRN PRN Reason: FEVER OR PAIN Last Admin: 07/04/16 17:36 Dose: 650 mg Ertapenem 1 gm/ Sodium (Chloride) 50 mls @ 100 mls/hr IVPB DAILY [facility] PRN Reason: Protocol Last Admin: 07/05/16 09:39 Dose: 100 mls/hr Levetiracetam (Keppra Injection -) 750 mg IVPB BID [facility] Last Admin: 07/05/16 09:38 Dose: 750 mg Metoprolol Tartrate (Lopressor Injection -) 5 mg IVPUSH Q4H PRN PRN Reason: TACHYCARDIA Last Admin: 06/30/16 18:20 Dose: 5 mg Morphine Sulfate (Morphine Injection -) 2 mg IVPUSH Q4H PRN PRN Reason: PAIN Last Admin: 07/04/16 09:02 Dose: 2 mg Ranitidine HCl (Zantac Oral Solution -) 150 mg GT DAILY [facility] Last Admin: 07/05/16 09:38 Dose: 150 mg Vital Signs - 24 hr 07/04/16 07/04/16 07/05/16 17:00 21:00 01:00 Temperature 101.2 F H 100 F H 99.1 F Pulse Rate 92 H 83 82 Respiratory 18 20 20 Rate Blood Pressure 115/52 95/48 98/33 O2 Sat by Pulse 94 L Oximetry (%) 07/05/16 05:49 Temperature 98.0 F Pulse Rate 80 Respiratory 20 Rate Blood Pressure 122/46 O2 Sat by Pulse Oximetry (%) Intake & Output 07/03/16 07/04/16 07/05/16 07/06/16 07:59 07:59 07:59 07:59 Intake Total 1825 2600 100 Output Total 600 2300 700 150 Balance 1225 300 -600 -150 Constitutional: Yes: Other (Minimally response, moans to stimuli) Neck: Yes: Supple Cardiovascular: Yes: irregular Rate and Rhythm Respiratory: Yes: bibasilar dullness. Extremities: Yes: WNL Edema: trace dependent Labs: CBC, BMP 07/05/16 06:10 07/05/16 06:10 Laboratory Tests 07/04/16 07/05/16 05:35 06:10 Total Bilirubin 0.6 D AST 17 ALT 15 Alkaline Phosphatase 49 Albumin 1.8 L 1.7 L Tele:NSR, freq pac. 3 beat nsvt. brief self-limited svt. ekg 06/06: rapid AF, diffuse ST-Ts (changed vs 2014 prior) ekg #2 06/24: NSR, ST-Ts persist, though improved tele: NSR with frequent pac's. echo: nl lv size/fn. nl rv size, no mention of fn. impaired LV relaxation. 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 As per neurosurgery, no acute intervention. - subsequent head CT stable. Assessment/Plan a/p: 80 year old woman, history of HTN, pafib, dementia, parkinsons disease, GERD, lung mass, depression, bilateral hip replacement, presented to ED for altered mental status for one day and found to have Acute-subacute embolic hemorrhagic stroke, UTI and afib. acute temporal lobe hemorrhage: -bp control to targets per neuro -no AC or anti-plt's at present per neuro/neurosurgery -neuro and neurosurgery following (conservative mgmt) - thrombocytopenia, s/p platelet transfusion. paroxysmal afib: -episodes of rapid PAF while here, currently in SR -bp was low so had tried amio gtt but HR remained fast and she seems to respond better to iv lopressor so amio was stopped and have been using standing iv lopressor until able to take po meds. - 4/10 bp running low and with low grade temp. HR's controlled will switch standing IV lopressor to prn. -cont tele. -CHADS-VASC 4 (vs 5?...if cad) -no AC until cleared by neuro/neurosurgery -? if the ICH was due to acute embolic CVA--neuro notes not suggesting this but possibility raised by neuro surgery--h/o metastatic malignant melanoma noted - lyte repletion HTN: -bp remains low. recurrent fever. holding metoprolol possible CAD: -"small, subtle" apical defect suggestive of ischemia on 2014 nuclear here -not followed by cardio in our office -no acute tx changes at the moment in any event -outpt cardio f/u once/if stable neurologically -trop x 2 here unremarkable echo with density on mitral valve - Patient here with UTI, but no evidence of bacteremia and now off abx per ID. Lesion likely secondary to MAC. metastatic melanoma (to lungs): - large [place] mass. + o2 requirement. Monitor oxygen closely. -per onc, pmd - 07/04: review of chest ct --> irregular pericardium, will review echo images to assess for possible cardiac mets. hypokalemia: -cont repletion prn
--- NOTE | 2016-07-05 12:59 | PN ---
Progress Note, METEOROLOGY INSTRUCTOR - Note Progress Note: NAZARIO unchanged since my last visit, 07/01. NGT in place. Palliative care involved. Family making end of life decision. They do not want PEG insertion. Selected Entries 07/03/16 07/03/16 07/03/16 02:31 06:37 09:00 Breakfast Lunch Temperature 97.5 F L 10.4 F L 102.8 F H 07/03/16 07/03/16 07/03/16 14:00 18:00 22:00 Breakfast Lunch Temperature 100.4 F H 98.9 F 99.8 F H 07/04/16 07/04/16 07/04/16 02:00 05:52 10:00 Breakfast Lunch Temperature 97.8 F 98.7 F 99 F 07/04/16 07/04/16 07/05/16 17:00 21:00 01:00 Breakfast Lunch Temperature 101.2 F H 100 F H 99.1 F 07/05/16 07/05/16 07/05/16 05:49 09:00 12:44 Breakfast NPO Lunch NPO Temperature 98.0 F 99 F Laboratory Tests 07/04/16 07/05/16 05:35 06:10 WBC 8.5 8.5 To reassess for PO trials, if pt becomes more alert.
--- NOTE | 2016-07-05 13:52 | PN ---
Progress Note (short form) - Note Progress Note: Neurology Progress Note (short form) 80 year old woman, history of parkinsons disease, hypertension, bilateral hip replacement, presented to ED for altered mental status for one day. On arrival, u/a+ with leukocytosis, increased lactic acid, enlarging lung mass, and atrial fibrillation noted. She was seen by Dr. Vinson. Imaging showed evidence of right temporal acute/subacute hemorrhage. Neurology and Neurosurgery consulted for findings. As per neurosurgery, no acute intervention. Recommend blood pressure control and keppra for seizure prophylaxis. There was concern for somnolence and patient completed MRI brain as repeat CT head imaging was stable. MRI showed finidings consistent with right temporal acute/subacute hemorrhage. No significant worsening. Of note, there was no infarction noted either as there was concern for ischemic event. Spoke to daughter, Romeo, in detail today as she wanted to discuss case. Had reached out to her yestreday several times but calls were not picked up. Patient interested in DNR and comfort care. Active Medications Acetaminophen (Tylenol Suppository -) 650 mg [place] Q6H PRN PRN Reason: FEVER OR PAIN Last Admin: 07/03/16 09:11 Dose: 650 mg Ertapenem 1 gm/ Sodium (Chloride) 50 mls @ 100 mls/hr IVPB DAILY ERIN PRN Reason: Protocol Last Admin: 07/04/16 11:04 Dose: Not Given Levetiracetam (Keppra Injection -) 750 mg IVPB BID [facility] Last Admin: 07/04/16 09:07 Dose: 750 mg Metoprolol Tartrate (Lopressor Injection -) 5 mg IVPUSH Q6H ERIN Last Admin: 07/04/16 11:07 Dose: 5 mg Metoprolol Tartrate (Lopressor Injection -) 5 mg IVPUSH Q4H PRN PRN Reason: TACHYCARDIA Last Admin: 06/30/16 18:20 Dose: 5 mg Metoprolol Tartrate (Lopressor -) 12.5 mg GT BID [facility] Morphine Sulfate (Morphine Injection -) 2 mg IVPUSH Q4H PRN PRN Reason: PAIN Last Admin: 07/04/16 09:02 Dose: 2 mg Ranitidine HCl (Zantac Oral Solution -) 150 mg GT DAILY [facility] Last Admin: 07/04/16 09:07 Dose: 150 mg Vital Signs Temperature 99 F 07/05/16 09:00 Pulse Rate 90 07/05/16 09:00 Respiratory Rate 18 07/05/16 09:00 Blood Pressure 156/76 07/05/16 09:00 O2 Sat by Pulse Oximetry (%) 93 L 07/05/16 09:00 Constitutional: Yes: No Distress Eyes: Yes: Conjunctiva Clear, EOM Intact HENT: Yes: Atraumatic, Normocephalic Cardiovascular: Yes: S1, S2 Neurological: Yes: Cran Nerves II-XII Intact, opens eyes to verbal command, sticks out tongue to command, blinks to visual threat, did not participate in confrontational testing, sensory intact Assessment/Plan 80 year old woman, history of parkinsons disease, hypertension, bilateral hip replacement, presented to ED for altered mental status for one day. On arrival, u/a+ with leukocytosis, increased lactic acid, enlarging lung mass, and atrial fibrillation noted. She was seen by Dr. Vinson. CT head showed evidence of right temporal acute/subacute hemorrhage. CT head showed evidence of right temporal acute/subacute hemorrhage. As per neurosurgery, no acute intervention. MRI showed finidings consistent with right temporal acute/subacute hemorrhage. No significant worsening. Of note, there was no infarction noted either as there was concern for ischemic event .Spoke to daughter, Romeo, in detail today as she wanted to discuss case. Would continue to treat underlying medical complications (UTI, decreased PO intake). Follow up with Romeo, health care proxy regarding goals of care.
[2016-07-05] MEDS: ACETAMINOPHEN 650 MG SUPP.RECT PR PRN (23:06)
[2016-07-06 06:58] LABS: BASOPHIL 0.2 % (0-2.0); EOSINOPHIL 1.1 % (0-4.5); MCH 28.7 pg (25.7-33.7); MCHC 32.7 g/dl (32.0-36.0); MEAN CELL VOLUME 87.6 fl (80-96); MEAN PLT VOLUME 8.9 fl (7.5-11.1); NEUTROPHILS 77.9 % (42.8-82.8); PLATELET COUNT 88 K/MM3 (134-434); RDW 18.9 % (11.6-15.6); WHITE BLOOD COUNT 9.3 K/mm3 (4.0-10.0)
[2016-07-06 07:17] LABS: ALBUMIN 1.7 g/dl (3.4-5.0); ANION GAP 8 (8-16); CALCIUM 8.2 mg/dL (8.5-10.1); CO2 32 mmol/L (21-32); GLUCOSE,RANDOM 153 mg/dL (74-106)
[2016-07-06 07:21] LABS: ALK PHOS 59 U/L (45-117); BILIRUBIN,TOTAL 0.4 mg/dL (0.2-1.0); CREATININE 0.5 mg/dL (0.55-1.02); SGOT/AST 18 U/L (15-37); SGPT/ALT 13 U/L (12-78); TOT PROT 4.1 g/dl (6.4-8.2)
[2016-07-06] MEDS ORDERED: PT OWN MED DRAWER 7, Y5N ONE (09:44)
[2016-07-06] MEDS: levETIRAcetam 500 MG/5 ML INJECTION VIAL IVPB SCH ×2 (09:56→22:41)
[2016-07-06] MEDS: ERTAPENEM SODIUM 1 GM in SODIUM CHLORIDE 50 ML IVPB SCH (09:56)
[2016-07-06] MEDS: RANITIDINE HCL 150 MG/10 ML UNIT-DOSE CUP GT SCH (09:57)
--- NOTE | 2016-07-06 11:22 | PN ---
Progress Note (short form) - Note Progress Note: CC: afib S: lethargic, unable to get ros. no overnight events. tele shows sr. appears comfortable, still unable to take any po meds. Current Medications Generic Name Dose Route Start Last Admin Trade Name Freq PRN Reason Stop Dose Admin Acetaminophen 650 mg 07/02/16 12:36 07/05/16 23:06 Tylenol Suppository - ID 650 mg Q6H PRN Administration FEVER OR PAIN Ertapenem 1 gm/ Sodium 50 mls @ 100 mls/hr 07/03/16 13:00 07/06/16 09:56 Chloride IVPB 100 mls/hr DAILY ERIN Administration Protocol Levetiracetam 750 mg 06/29/16 22:00 07/06/16 09:56 Keppra Injection - IVPB 750 mg BID ERIN Administration Metoprolol Tartrate 5 mg 06/30/16 10:23 06/30/16 18:20 Lopressor Injection - IVPUSH 5 mg Q4H PRN Administration TACHYCARDIA Morphine Sulfate 2 mg 07/04/16 08:40 07/04/16 09:02 Morphine Injection - IVPUSH 2 mg Q4H PRN Administration PAIN Ranitidine HCl 150 mg 07/03/16 10:00 07/06/16 09:57 Zantac Oral Solution - GT 150 mg DAILY ERIN Administration Vital Signs Period Temp Pulse Resp BP Sys/Blake Pulse Ox Last 24 Hr 98.0 F-101.5 F 66-93 18-24 104-132/46-87 93-96 Constitutional: Yes: Well Nourished, No Distress Eyes: No: Sclera Icterus Respiratory: Yes: CTA Bilaterally (anteriorly (not deep breaths)). No: Accessory Muscle Use, Rales, Wheezes Gastrointestinal: Yes: Normal Bowel Sounds. No: Distention, Hepatomegaly, Palpable Mass, Tenderness Cardiovascular: Yes: Regular Rate and Rhythm JVD: No Heart Sounds: Yes: S1, S2. No: Gallop Murmur: No: Systolic Murmur, Diastolic Murmur Extremities: No: Cold, Cyanosis Edema: Yes (trace pedal edema) Integumentary: No: Jaundice diaphoresis Neurological: Yes: Lethargy. No: Seizure Psychiatric: No: Agitated - Other Data Labs, Other Data: Laboratory Last Values WBC 9.3 K/mm3 (4.0-10.0) 07/06/16 05:35 RBC 3.14 M/mm3 (3.60-5.2) L 07/06/16 05:35 Hgb 9.0 GM/dL (10.7-15.3) L 07/06/16 05:35 Hct 27.5 % (32.4-45.2) L 07/06/16 05:35 MCV 87.6 fl (80-96) 07/06/16 05:35 MCHC 32.7 g/dl (32.0-36.0) 07/06/16 05:35 RDW 18.9 % (11.6-15.6) H 07/06/16 05:35 Plt Count 88 K/MM3 (134-434) L D 07/06/16 05:35 MPV 8.9 fl (7.5-11.1) 07/06/16 05:35 Neutrophils % 77.9 % (42.8-82.8) 07/06/16 05:35 Lymphocytes % 11.7 % (8-40) D 07/06/16 05:35 Monocytes % 9.1 % (3.8-10.2) 07/06/16 05:35 Eosinophils % 1.1 % (0-4.5) 07/06/16 05:35 Basophils % 0.2 % (0-2.0) 07/06/16 05:35 INR 1.19 (0.82-1.09) H 07/04/16 09:00 PTT (Actin FS) 28.1 SECONDS (26.9-34.4) 06/25/16 02:45 Sodium 151 mmol/L (136-145) H 07/06/16 05:35 Potassium 3.7 mmol/L (3.5-5.1) 07/06/16 05:35 Chloride 111 mmol/L (98-107) H 07/06/16 05:35 Carbon Dioxide 32 mmol/L (21-32) 07/06/16 05:35 Anion Gap 8 (8-16) 07/06/16 05:35 BUN 19 mg/dL (7-18) H 07/06/16 05:35 Creatinine 0.5 mg/dL (0.55-1.02) L 07/06/16 05:35 Creat Clearance w eGFR > 60 (>60) 07/06/16 05:35 POC Glucometer 168 UNITS (()) 07/06/16 05:55 Random Glucose 153 mg/dL (74-106) H D 07/06/16 05:35 Lactic Acid 1.494 mmol/L (0.4-2.0) 07/03/16 22:15 Calcium 8.2 mg/dL (8.5-10.1) L 07/06/16 05:35 Phosphorus 1.5 mg/dL (2.5-4.9) L 07/02/16 03:00 Magnesium 1.4 mg/dL (1.8-2.4) L 07/02/16 03:00 Total Bilirubin 0.4 mg/dL (0.2-1.0) 07/06/16 05:35 AST 18 U/L (15-37) D 07/06/16 05:35 ALT 13 U/L (12-78) 07/06/16 05:35 Alkaline Phosphatase 59 U/L (45-117) 07/06/16 05:35 Creatine Kinase 60 IU/L (26-192) 06/25/16 02:45 Troponin I 0.07 ng/ml (0.00-0.05) H 06/25/16 02:45 Total Protein 4.1 g/dl (6.4-8.2) L 07/06/16 05:35 Albumin 1.7 g/dl (3.4-5.0) L 07/06/16 05:35 TSH 2.43 uIU/ml (0.358-3.74) D 06/24/16 16:15 Urine Color Yellow 07/03/16 11:00 Urine Appearance Cloudy 07/03/16 11:00 Urine pH 5.0 (5.0-8.0) 07/03/16 11:00 Ur Specific [place] 1.017 (1.001-1.035) 07/03/16 11:00 Urine Protein Negative (NEGATIVE) 07/03/16 11:00 Urine Glucose (UA) 1+ (NEGATIVE) H 07/03/16 11:00 Urine Ketones Negative (NEGATIVE) 07/03/16 11:00 Urine Blood 2+ (NEGATIVE) H 07/03/16 11:00 Urine Nitrite Positive (NEGATIVE) 07/03/16 11:00 Urine Bilirubin Negative (NEGATIVE) 07/03/16 11:00 Urine Urobilinogen Negative E.U./dl (0.2-1.0) 07/03/16 11:00 Ur Leukocyte Esterase 3+ (NEGATIVE) H 07/03/16 11:00 Urine RBC 40 /hpf (0-3) 07/03/16 11:00 Urine WBC 315 /hpf (3-5) 07/03/16 11:00 Ur Epithelial Cells Rare /hpf (FEW) 07/03/16 11:00 Urine Bacteria Many /hpf (NONE SEEN) 07/03/16 11:00 Hyaline Casts 3 /lpf 07/03/16 11:00 Urine Mucus Moderate 07/03/16 11:00 Ur Random Sodium 79 MMOL/L 06/25/16 07:30 Ur Random Potassium 36.4 MMOL/L 06/25/16 07:30 Ur Random Chloride 94 MMOL/L 06/25/16 07:30 Urine Creatinine 39.5 mg/dL 06/25/16 07:30 ekg 06/06: rapid AF, diffuse ST-Ts (changed vs 2014 prior) ekg #2 06/24: NSR, ST-Ts persist, though improved tele: sr, occ pacs echo 06/2016: nl lv size/fn. nl rv size, no mention of fn. impaired LV relaxation. 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 As per neurosurgery, no acute intervention. - subsequent head CT stable. Chest X-ray: Report Reviewed ([place] mass unchanged, no chf) MPI 08/2014 (persantine): no STs; "small subtle apical reversible defect suggestive of mild ischemia"; nl EF a/p: 80 year old woman, history of HTN, pafib, dementia, parkinsons disease, GERD, lung mass, depression, bilateral hip replacement, presented to ED for altered mental status for one day and found to have Acute-subacute embolic hemorrhagic stroke, UTI and afib. acute temporal lobe hemorrhage: -no AC or anti-plt's at present per neuro/neurosurgery -neuro and neurosurgery following (conservative mgmt) -thrombocytopenia, s/p platelet transfusion. paroxysmal afib: -episodes of rapid PAF while here, currently in SR -bp was low so had tried amio gtt but HR remained fast and she seems to respond better to iv lopressor so amio was stopped and have been using standing iv lopressor until able to take po meds. -4/10 bp running low and with low grade temp. HR's controlled so switched standing IV lopressor to prn. -cont tele. -CHADS-VASC 4 (vs 5?...if cad) -no AC until cleared by neuro/neurosurgery -? if the ICH was due to acute embolic CVA--neuro notes not suggesting this but possibility raised by neuro surgery--h/o metastatic malignant melanoma noted HTN: -stable, cont prn lopressor possible CAD: -"small, subtle" apical defect suggestive of ischemia on 2014 nuclear here -not followed by cardio in our office -no acute tx changes at the moment in any event -outpt cardio f/u once/if stable neurologically -trop x 2 here unremarkable echo with density on mitral valve - Patient here with UTI, but no evidence of bacteremia and now off abx per ID. Lesion likely secondary to MAC. metastatic melanoma (to lungs): - large [place] mass. + o2 requirement. Monitor oxygen closely. -per onc, pmd
--- NOTE | 2016-07-06 12:39 | PN ---
Progress Note (short form) - Note Progress Note: Neurology Progress Note (short form) 80 year old woman, history of parkinsons disease, hypertension, bilateral hip replacement, presented to ED for altered mental status for one day. On arrival, u/a+ with leukocytosis, increased lactic acid, enlarging lung mass, and atrial fibrillation noted. She was seen by Dr. Vinson. Imaging showed evidence of right temporal acute/subacute hemorrhage. Neurology and Neurosurgery consulted for findings. As per neurosurgery, no acute intervention. Recommend blood pressure control and keppra for seizure prophylaxis. There was concern for somnolence and patient completed MRI brain as repeat CT head imaging was stable. MRI showed finidings consistent with right temporal acute/subacute hemorrhage. No significant worsening. Of note, there was no infarction noted either as there was concern for ischemic event. Spoke to daughter yesterday, Romeo, patient for hospice. No new events. Active Medications Acetaminophen (Tylenol Suppository -) 650 mg [place] Q6H PRN PRN Reason: FEVER OR PAIN Last Admin: 07/05/16 23:06 Dose: 650 mg Ertapenem 1 gm/ Sodium (Chloride) 50 mls @ 100 mls/hr IVPB DAILY ERIN PRN Reason: Protocol Last Admin: 07/06/16 09:56 Dose: 100 mls/hr Levetiracetam (Keppra Injection -) 750 mg IVPB BID [facility] Last Admin: 07/06/16 09:56 Dose: 750 mg Metoprolol Tartrate (Lopressor Injection -) 5 mg IVPUSH Q4H PRN PRN Reason: TACHYCARDIA Last Admin: 06/30/16 18:20 Dose: 5 mg Morphine Sulfate (Morphine Injection -) 2 mg IVPUSH Q4H PRN PRN Reason: PAIN Last Admin: 07/04/16 09:02 Dose: 2 mg Ranitidine HCl (Zantac Oral Solution -) 150 mg GT DAILY [facility] Last Admin: 07/06/16 09:57 Dose: 150 mg Vital Signs Temperature 99.2 F 07/06/16 09:11 Pulse Rate 93 H 07/06/16 09:53 Respiratory Rate 22 07/06/16 09:11 Blood Pressure 128/63 07/06/16 09:11 O2 Sat by Pulse Oximetry (%) 96 07/06/16 09:53 Constitutional: Yes: No Distress Eyes: Yes: Conjunctiva Clear, EOM Intact HENT: Yes: Atraumatic, Normocephalic Cardiovascular: Yes: S1, S2 Neurological: Yes: Cran Nerves II-XII Intact, opens eyes to verbal command, sticks out tongue to command, blinks to visual threat, did not participate in confrontational testing, sensory intact Assessment/Plan 80 year old woman, history of parkinsons disease, hypertension, bilateral hip replacement, presented to ED for altered mental status for one day. On arrival, u/a+ with leukocytosis, increased lactic acid, enlarging lung mass, and atrial fibrillation noted. She was seen by Dr. Vinson. CT head showed evidence of right temporal acute/subacute hemorrhage. CT head showed evidence of right temporal acute/subacute hemorrhage. As per neurosurgery, no acute intervention. MRI showed finidings consistent with right temporal acute/subacute hemorrhage. For Hospice Would continue to treat underlying medical complications (UTI, decreased PO intake). Follow up with Romeo, health care proxy regarding goals of care.
--- NOTE | 2016-07-06 13:59 | PN ---
Progress Note, [employer] - Note Progress Note: Lethargy with limited arousability persists. NGT in place. Case reviewed with HCP, pt's sister. Made made DNR/DNI and discharge plan is for [place] due to poor prognosis for recovery of function..
--- NOTE | 2016-07-06 17:01 | PN ---
Progress Note, Physician Chief Complaint: Unable to obtain, long discussion with sister about care - Current Medication List Current Medications: Active Medications Acetaminophen (Tylenol Suppository -) 650 mg [place] Q6H PRN PRN Reason: FEVER OR PAIN Last Admin: 07/05/16 23:06 Dose: 650 mg Ertapenem 1 gm/ Sodium (Chloride) 50 mls @ 100 mls/hr IVPB DAILY REIN PRN Reason: Protocol Last Admin: 07/06/16 09:56 Dose: 100 mls/hr Levetiracetam (Keppra Injection -) 750 mg IVPB BID [facility] Last Admin: 07/06/16 09:56 Dose: 750 mg Metoprolol Tartrate (Lopressor Injection -) 5 mg IVPUSH Q4H PRN PRN Reason: TACHYCARDIA Last Admin: 06/30/16 18:20 Dose: 5 mg Morphine Sulfate (Morphine Injection -) 2 mg IVPUSH Q4H PRN PRN Reason: PAIN Last Admin: 07/04/16 09:02 Dose: 2 mg Ranitidine HCl (Zantac Oral Solution -) 150 mg GT DAILY [facility] Last Admin: 07/06/16 09:57 Dose: 150 mg - Objective Vital Signs: Vital Signs Temperature 99.6 F 07/06/16 14:41 Pulse Rate 93 H 07/06/16 14:41 Respiratory Rate 18 07/06/16 14:41 Blood Pressure 143/68 07/06/16 14:41 O2 Sat by Pulse Oximetry (%) 96 07/06/16 09:53 Constitutional: Yes: Well Nourished, No Distress Cardiovascular: Yes: Regular Rate and Rhythm. No: Gallop, Murmur, Rub Respiratory: Yes: Regular, CTA Bilaterally. No: Rales, Rhonchi, Wheezes Gastrointestinal: Yes: Normal Bowel Sounds, Soft. No: Distention, Tenderness Extremities: Yes: WNL Edema: No Labs: CBC, BMP 07/06/16 05:35 07/06/16 05:35 INR, PTT INR 1.19 (0.82-1.09) H 07/04/16 09:00 Problem List - Problems (1) UTI (urinary tract infection) Assessment/Plan: -ESBL UTI -ID following -continue ertapenem per ID recommendations Code(s): N39.0 - URINARY TRACT INFECTION, SITE NOT SPECIFIED Qualifiers: Urinary tract infection type: site unspecified Hematuria presence: without hematuria Qualified Code(s): N39.0 - Urinary tract infection, site not specified (2) ICH (intracerebral hemorrhage) Assessment/Plan: -neurology following -no intervention -planning for [place] Code(s): I61.9 - NONTRAUMATIC INTRACEREBRAL HEMORRHAGE, UNSPECIFIED Qualifiers : Intracerebral hemorrhage etiology: nontraumatic Cerebral hemorrhage location: unspecified cerebral location Laterality: unspecified laterality Qualified Code(s): I61.9 - Nontraumatic intracerebral hemorrhage, unspecified (3) Altered mental status Assessment/Plan: -worsening -secondary to ICH -monitor Code(s): R41.82 - ALTERED MENTAL STATUS, UNSPECIFIED Qualifiers: Altered mental status type: unspecified Qualified Code(s): R41.82 - Altered mental status, unspecified (4) Atrial fibrillation Assessment/Plan: -controlled -cannot anticoagulate Code(s): I48.91 - UNSPECIFIED ATRIAL FIBRILLATION Qualifiers: Atrial fibrillation type: unspecified Qualified Code(s): I48.91 - Unspecified atrial fibrillation (5) Lung mass Assessment/Plan: -increasing -plan for [place] Code(s): R91.8 - OTHER NONSPECIFIC ABNORMAL FINDING OF LUNG FIELD Assessment/Plan -spoke with family 40 minutes concerning care
[2016-07-06] MEDS: ACETAMINOPHEN 650 MG SUPP.RECT PR PRN (17:16)
--- NOTE | 2016-07-07 10:52 | PN ---
Progress Note (short form) - Note Progress Note: CC: afib S: lethargic, unable to get ros. no overnight events. tele shows sr. appears comfortable, still unable to take any po meds, no plans for peg Current Medications Generic Name Dose Route Start Last Admin Trade Name Freq PRN Reason Stop Dose Admin Acetaminophen 650 mg 07/02/16 12:36 07/06/16 17:16 Tylenol Suppository - [place] 650 mg Q6H PRN Administration FEVER OR PAIN Ertapenem 1 gm/ Sodium 50 mls @ 100 mls/hr 07/03/16 13:00 07/06/16 09:56 Chloride IVPB 100 mls/hr DAILY ERIN Administration Protocol Levetiracetam 750 mg 06/29/16 22:00 07/06/16 22:41 Keppra Injection - IVPB 750 mg BID ERIN Administration Metoprolol Tartrate 5 mg 06/30/16 10:23 06/30/16 18:20 Lopressor Injection - IVPUSH 5 mg Q4H PRN Administration TACHYCARDIA Morphine Sulfate 2 mg 07/04/16 08:40 07/04/16 09:02 Morphine Injection - IVPUSH 2 mg Q4H PRN Administration PAIN Ranitidine HCl 150 mg 07/03/16 10:00 07/06/16 09:57 Zantac Oral Solution - GT 150 mg DAILY ERIN Administration Vital Signs Period Temp Pulse Resp BP Sys/Blake Pulse Ox Last 24 Hr 97.8 F-101.0 F 74-96 18-20 99-143/40-71 93-95 Constitutional: Yes: Well Nourished, No Distress Eyes: No: Sclera Icterus Respiratory: Yes: CTA Bilaterally (anteriorly (not deep breaths)). No: Accessory Muscle Use, Rales, Wheezes Gastrointestinal: Yes: Normal Bowel Sounds. No: Distention, Hepatomegaly, Palpable Mass, Tenderness Cardiovascular: Yes: Regular Rate and Rhythm JVD: No Heart Sounds: Yes: S1, S2. No: Gallop Murmur: No: Systolic Murmur, Diastolic Murmur Extremities: No: Cold, Cyanosis Edema: Yes (trace pedal edema) Integumentary: No: Jaundice diaphoresis Neurological: Yes: Lethargy. No: Seizure Psychiatric: No: Agitated - Other Data Labs, Other Data: CBC, BMP 07/06/16 05:35 07/06/16 05:35 ekg 06/06: rapid AF, diffuse ST-Ts (changed vs 2014 prior) ekg #2 06/24: NSR, ST-Ts persist, though improved tele: sr, occ pacs echo 06/2016: nl lv size/fn. nl rv size, no mention of fn. impaired LV relaxation. 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 As per neurosurgery, no acute intervention. - subsequent head CT stable. Chest X-ray: Report Reviewed ([place] mass unchanged, no chf) MPI 08/2014 (persantine): no STs; "small subtle apical reversible defect suggestive of mild ischemia"; nl EF a/p: 80 year old woman, history of HTN, pafib, dementia, parkinsons disease, GERD, lung mass, depression, bilateral hip replacement, presented to ED for altered mental status for one day and found to have Acute-subacute embolic hemorrhagic stroke, UTI and afib. acute temporal lobe hemorrhage: -no AC or anti-plt's at present per neuro/neurosurgery -neuro and neurosurgery following (conservative mgmt) -thrombocytopenia, s/p platelet transfusion. paroxysmal afib: -episodes of rapid PAF while here, currently in SR -bp was low so had tried amio gtt but HR remained fast and she seems to respond better to iv lopressor so amio was stopped and have been using standing iv lopressor until able to take po meds. -4/10 bp running low and with low grade temp. HR's controlled so switched standing IV lopressor to prn. -cont tele. -CHADS-VASC 4 (vs 5?...if cad) -no AC until cleared by neuro/neurosurgery -? if the ICH was due to acute embolic CVA--neuro notes not suggesting this but possibility raised by neuro surgery--h/o metastatic malignant melanoma noted HTN: -stable, cont prn lopressor possible CAD: -"small, subtle" apical defect suggestive of ischemia on 2014 nuclear here -no acute tx changes at the moment -outpt cardio f/u once/if stable neurologically -trop x 2 here unremarkable echo with density on mitral valve - Patient here with UTI, but no evidence of bacteremia and now off abx per ID. Lesion likely secondary to MAC. metastatic melanoma (to lungs): - large [place] mass. + o2 requirement. Monitor oxygen closely. -per onc, pmd
[2016-07-07] MEDS: levETIRAcetam 500 MG/5 ML INJECTION VIAL IVPB SCH ×2 (12:21→23:06)
[2016-07-07] MEDS: RANITIDINE HCL 150 MG/10 ML UNIT-DOSE CUP GT SCH (12:21)
[2016-07-07] MEDS: ERTAPENEM SODIUM 1 GM in SODIUM CHLORIDE 50 ML IVPB SCH (12:21)
--- NOTE | 2016-07-07 13:01 | PN ---
Progress Note, Physician Chief Complaint: Unable to obtain - Current Medication List Current Medications: Active Medications Acetaminophen (Tylenol Suppository -) 650 mg DE Q6H PRN PRN Reason: FEVER OR PAIN Last Admin: 07/06/16 17:16 Dose: 650 mg Ertapenem 1 gm/ Sodium (Chloride) 50 mls @ 100 mls/hr IVPB DAILY ERIN PRN Reason: Protocol Last Admin: 07/07/16 12:21 Dose: 100 mls/hr Levetiracetam (Keppra Injection -) 750 mg IVPB BID [facility] Last Admin: 07/07/16 12:21 Dose: 750 mg Metoprolol Tartrate (Lopressor Injection -) 5 mg IVPUSH Q4H PRN PRN Reason: TACHYCARDIA Last Admin: 06/30/16 18:20 Dose: 5 mg Morphine Sulfate (Morphine Injection -) 2 mg IVPUSH Q4H PRN PRN Reason: PAIN Last Admin: 07/04/16 09:02 Dose: 2 mg Ranitidine HCl (Zantac Oral Solution -) 150 mg GT DAILY [facility] Last Admin: 07/07/16 12:21 Dose: 150 mg - Objective Vital Signs: Vital Signs Temperature 98.7 F 07/07/16 08:20 Pulse Rate 76 07/07/16 08:20 Respiratory Rate 20 07/07/16 08:25 Blood Pressure 102/48 07/07/16 08:20 O2 Sat by Pulse Oximetry (%) 95 07/07/16 08:25 Constitutional: Yes: No Distress, Other (lethargic) Cardiovascular: Yes: Regular Rate and Rhythm. No: Gallop, Murmur, Rub Respiratory: Yes: Regular, On Nasal O2, Rhonchi Gastrointestinal: Yes: Normal Bowel Sounds, Soft. No: Distention, Tenderness Extremities: Yes: WNL Edema: No Labs: CBC, BMP 07/06/16 05:35 07/06/16 05:35 INR, PTT INR 1.19 (0.82-1.09) H 07/04/16 09:00 Problem List - Problems (1) UTI (urinary tract infection) Code(s): N39.0 - URINARY TRACT INFECTION, SITE NOT SPECIFIED Qualifiers: Urinary tract infection type: site unspecified Hematuria presence: without hematuria Qualified Code(s): N39.0 - Urinary tract infection, site not specified (2) ICH (intracerebral hemorrhage) Code(s): I61.9 - NONTRAUMATIC INTRACEREBRAL HEMORRHAGE, UNSPECIFIED Qualifiers : Intracerebral hemorrhage etiology: nontraumatic Cerebral hemorrhage location: unspecified cerebral location Laterality: unspecified laterality Qualified Code(s): I61.9 - Nontraumatic intracerebral hemorrhage, unspecified (3) Altered mental status Code(s): R41.82 - ALTERED MENTAL STATUS, UNSPECIFIED Qualifiers: Altered mental status type: unspecified Qualified Code(s): R41.82 - Altered mental status, unspecified (4) Atrial fibrillation Code(s): I48.91 - UNSPECIFIED ATRIAL FIBRILLATION Qualifiers: Atrial fibrillation type: unspecified Qualified Code(s): I48.91 - Unspecified atrial fibrillation (5) Lung mass Code(s): R91.8 - OTHER NONSPECIFIC ABNORMAL FINDING OF LUNG FIELD Assessment/Plan (1) UTI (urinary tract infection) Assessment/Plan: -ESBL UTI -ID following -continue ertapenem per ID recommendations Code(s): N39.0 - URINARY TRACT INFECTION, SITE NOT SPECIFIED Qualifiers: Urinary tract infection type: site unspecified Hematuria presence: without hematuria Qualified Code(s): N39.0 - Urinary tract infection, site not specified (2) ICH (intracerebral hemorrhage) Assessment/Plan: -neurology following -no intervention -planning for [place] Code(s): I61.9 - NONTRAUMATIC INTRACEREBRAL HEMORRHAGE, UNSPECIFIED Qualifiers : Intracerebral hemorrhage etiology: nontraumatic Cerebral hemorrhage location: unspecified cerebral location Laterality: unspecified laterality Qualified Code(s): I61.9 - Nontraumatic intracerebral hemorrhage, unspecified (3) Altered mental status Assessment/Plan: -stable -secondary to ICH -monitor Code(s): R41.82 - ALTERED MENTAL STATUS, UNSPECIFIED Qualifiers: Altered mental status type: unspecified Qualified Code(s): R41.82 - Altered mental status, unspecified (4) Atrial fibrillation Assessment/Plan: -controlled -cannot anticoagulate Code(s): I48.91 - UNSPECIFIED ATRIAL FIBRILLATION Qualifiers: Atrial fibrillation type: unspecified Qualified Code(s): I48.91 - Unspecified atrial fibrillation (5) Lung mass Assessment/Plan: -increasing -plan for [place] Code(s): R91.8 - OTHER NONSPECIFIC ABNORMAL FINDING OF LUNG FIELD
--- NOTE | 2016-07-07 14:07 | PN ---
Progress Note, Physician History of Present Illness: Responds to calling name but not conversant Intermittant fever WBC WNL Urine c/s ESBL BC no growth - Current Medication List Current Medications: Active Medications Acetaminophen (Tylenol Suppository -) 650 mg LA Q6H PRN PRN Reason: FEVER OR PAIN Last Admin: 07/06/16 17:16 Dose: 650 mg Ertapenem 1 gm/ Sodium (Chloride) 50 mls @ 100 mls/hr IVPB DAILY ERIN PRN Reason: Protocol Last Admin: 07/07/16 12:21 Dose: 100 mls/hr Levetiracetam (Keppra Injection -) 750 mg IVPB BID [facility] Last Admin: 07/07/16 12:21 Dose: 750 mg Metoprolol Tartrate (Lopressor Injection -) 5 mg IVPUSH Q4H PRN PRN Reason: TACHYCARDIA Last Admin: 06/30/16 18:20 Dose: 5 mg Morphine Sulfate (Morphine Injection -) 2 mg IVPUSH Q4H PRN PRN Reason: PAIN Last Admin: 07/04/16 09:02 Dose: 2 mg Ranitidine HCl (Zantac Oral Solution -) 150 mg GT DAILY [facility] Last Admin: 07/07/16 12:21 Dose: 150 mg - Objective Vital Signs: Vital Signs Temperature 98.7 F 07/07/16 08:20 Pulse Rate 76 07/07/16 08:20 Respiratory Rate 20 07/07/16 08:25 Blood Pressure 102/48 07/07/16 08:20 O2 Sat by Pulse Oximetry (%) 95 07/07/16 08:25 Constitutional: Yes: No Distress, Obese Cardiovascular: Yes: Regular Rate and Rhythm, S1, S2 Respiratory: Yes: Diminished Gastrointestinal: Yes: Normal Bowel Sounds, Soft. No: Tenderness Edema: Yes Labs: CBC, BMP 07/06/16 05:35 07/06/16 05:35 INR, PTT INR 1.19 (0.82-1.09) H 07/04/16 09:00 Assessment/Plan UTI/ possible sepsis secondary to UTI ESBL Possible pneumonia LLL Thrombocytopenia, possibly secondary to sepsis Continue ertapenem Contact precautions
[2016-07-08] MEDS: ACETAMINOPHEN 650 MG SUPP.RECT PR PRN (03:00)
[2016-07-08 08:00] VITALS: BP 118/50; PULSE 81; TEMP 99
[2016-07-08] MEDS: levETIRAcetam 500 MG/5 ML INJECTION VIAL IVPB SCH (09:20)
[2016-07-08] MEDS: RANITIDINE HCL 150 MG/10 ML UNIT-DOSE CUP GT SCH (09:21)
--- NOTE | 2016-07-08 11:04 | DS ---
Physical Examination Vital Signs: Vital Signs Temperature 99.0 F 07/08/16 07:55 Pulse Rate 81 07/08/16 07:55 Respiratory Rate 22 07/08/16 08:00 Blood Pressure 118/50 07/08/16 07:55 O2 Sat by Pulse Oximetry (%) 95 07/08/16 08:00 Constitutional: Yes: Other (unresponsive) Cardiovascular: Yes: Pulse Irregular. No: Tachycardia, Gallop, Murmur, Rub Respiratory: Yes: Regular, CTA Bilaterally. No: Rales, Rhonchi, Wheezes Gastrointestinal: Yes: Normal Bowel Sounds, Soft. No: Distention, Tenderness Extremities: Yes: WNL Edema: No Labs: CBC, BMP 07/06/16 05:35 07/06/16 05:35 Discharge Summary Reason For Visit: INTERCEREBAL HEMORRHAGE/UTI/ATRIAL FIBR Current Active Problems Altered mental status (Acute) Atrial fibrillation (Acute) ICH (intracerebral hemorrhage) (Acute) Lung mass (Acute) UTI (urinary tract infection) (Acute) Hospital Course: (1) UTI (urinary tract infection) Code(s): N39.0 - URINARY TRACT INFECTION, SITE NOT SPECIFIED Qualifiers: Urinary tract infection type: site unspecified Hematuria presence: without hematuria Qualified Code(s): N39.0 - Urinary tract infection, site not specified (2) ICH (intracerebral hemorrhage) Code(s): I61.9 - NONTRAUMATIC INTRACEREBRAL HEMORRHAGE, UNSPECIFIED Qualifiers : Intracerebral hemorrhage etiology: nontraumatic Cerebral hemorrhage location: unspecified cerebral location Laterality: unspecified laterality Qualified Code(s): I61.9 - Nontraumatic intracerebral hemorrhage, unspecified (3) Altered mental status Code(s): R41.82 - ALTERED MENTAL STATUS, UNSPECIFIED Qualifiers: Altered mental status type: unspecified Qualified Code(s): R41.82 - Altered mental status, unspecified (4) Atrial fibrillation Code(s): I48.91 - UNSPECIFIED ATRIAL FIBRILLATION Qualifiers: Atrial fibrillation type: unspecified Qualified Code(s): I48.91 - Unspecified atrial fibrillation (5) Lung mass Code(s): R91.8 - OTHER NONSPECIFIC ABNORMAL FINDING OF LUNG FIELD Ms Joseph is an 80 year old female with history of lung cancer who presented with AMS secondary to ICH and UTI. She was admitted to telemetry and treated with IV antibiotics. Her sister, who is HCP, was in attendance and stated Ms Joseph's wishes would be no surgery and eventually transfer to hospice. She was seen by [facility] and accepted. Patient is being transferred to [facility]. 41 minutes spent in preparation of this discharge Condition: Poor - Instructions Diet, Activity, Other Instructions: Diet and activity per [facility] Maintain Isolation Precautions for KLBS ESBL (Urine) [place] care Referrals: Jarod Ozuna MD [Primary Care Provider] - Disposition: DISCH TO [facility] - Home Medications Comprehensive Discharge Medication List: Ambulatory Orders Acetaminophen Suppository [Tylenol .Suppository -] 650 mg HI Q6H PRN #0 supp.rect 07/08/16 Levetiracetam Injection [Keppra Injection -] 750 mg IVPB BID ml 07/08/16 Morphine Injection - [Morphine Injection 2 mg/1 mL -] 2 mg IVPUSH Q4H PRN #0 mg MDD 20mg 07/08/16
--- NOTE | 2016-07-08 11:05 | PN ---
Progress Note (short form) - Note Progress Note: CC: afib S: lethargic, unable to get ros. no overnight events. tele shows sr. appears comfortable, still unable to take any po meds, no plans for peg Current Medications Generic Name Dose Route Start Last Admin Trade Name Freq PRN Reason Stop Dose Admin Acetaminophen 650 mg 07/02/16 12:36 07/08/16 03:00 Tylenol Suppository - [place] 650 mg Q6H PRN Administration FEVER OR PAIN Ertapenem 1 gm/ Sodium 50 mls @ 100 mls/hr 07/03/16 13:00 07/07/16 12:21 Chloride IVPB 100 mls/hr DAILY ERIN Administration Protocol Levetiracetam 750 mg 06/29/16 22:00 07/08/16 09:20 Keppra Injection - IVPB 750 mg BID ERIN Administration Metoprolol Tartrate 5 mg 06/30/16 10:23 06/30/16 18:20 Lopressor Injection - IVPUSH 5 mg Q4H PRN Administration TACHYCARDIA Morphine Sulfate 2 mg 07/04/16 08:40 07/04/16 09:02 Morphine Injection - IVPUSH 2 mg Q4H PRN Administration PAIN Ranitidine HCl 150 mg 07/03/16 10:00 07/08/16 09:21 Zantac Oral Solution - GT 150 mg DAILY ERIN Administration Vital Signs Period Temp Pulse Resp BP Sys/Blake Pulse Ox Last 24 Hr 98 F-100.5 F 70-97 18-24 115-147/50-67 95-95 Constitutional: Yes: Well Nourished, No Distress Eyes: No: Sclera Icterus Respiratory: Yes: CTA Bilaterally (anteriorly (not deep breaths)). No: Accessory Muscle Use, Rales, Wheezes Gastrointestinal: Yes: Normal Bowel Sounds. No: Distention, Hepatomegaly, Palpable Mass, Tenderness Cardiovascular: Yes: Regular Rate and Rhythm JVD: No Heart Sounds: Yes: S1, S2. No: Gallop Murmur: No: Systolic Murmur, Diastolic Murmur Extremities: No: Cold, Cyanosis Edema: Yes (trace pedal edema) Integumentary: No: Jaundice diaphoresis Neurological: Yes: Lethargy. No: Seizure Psychiatric: No: Agitated - Other Data Labs, Other Data: CBC, BMP 07/06/16 05:35 07/06/16 05:35 ekg 06/06: rapid AF, diffuse ST-Ts (changed vs 2014 prior) ekg #2 06/24: NSR, ST-Ts persist, though improved tele: sr echo 06/2016: nl lv size/fn. nl rv size, no mention of fn. impaired LV relaxation. 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 As per neurosurgery, no acute intervention. - subsequent head CT stable. Chest X-ray: Report Reviewed ([place] mass unchanged, no chf) MPI 08/2014 (persantine): no STs; "small subtle apical reversible defect suggestive of mild ischemia"; nl EF a/p: 80 year old woman, history of HTN, pafib, dementia, parkinsons disease, GERD, lung mass, depression, bilateral hip replacement, presented to ED for altered mental status for one day and found to have Acute-subacute embolic hemorrhagic stroke, UTI and afib. acute temporal lobe hemorrhage: -no AC or anti-plt's at present per neuro/neurosurgery -neuro and neurosurgery following (conservative mgmt) -thrombocytopenia, s/p platelet transfusion. paroxysmal afib: -episodes of rapid PAF while here, currently in SR -bp was low so had tried amio gtt but HR remained fast and she seems to respond better to iv lopressor so amio was stopped and have been using standing iv lopressor until able to take po meds. -4/10 bp running low and with low grade temp. HR's controlled so switched standing IV lopressor to prn. -cont tele. -CHADS-VASC 4 (vs 5?...if cad) -no AC until cleared by neuro/neurosurgery -? if the ICH was due to acute embolic CVA--neuro notes not suggesting this but possibility raised by neuro surgery--h/o metastatic malignant melanoma noted HTN: -stable, cont prn lopressor possible CAD: -"small, subtle" apical defect suggestive of ischemia on 2014 nuclear here -no acute tx changes at the moment -outpt cardio f/u once/if stable neurologically -trop x 2 here unremarkable echo with density on mitral valve - Patient here with UTI, but no evidence of bacteremia and now off abx per ID. Lesion likely secondary to MAC. metastatic melanoma (to lungs): - large [place] mass. + o2 requirement. Monitor oxygen closely. -per onc, pmd uti, pna: -abx per ID
== END 2016-07-08 12:24 | disposition hospice, inpatient (51) | DRG 871 ==
LOC: JER 14:41 → JERBED 22:10 → JICU 06-25 01:10 → J4W 06-29 21:03
PROVIDERS: ADMIT Internal Medicine; ATTEND Internal Medicine
PROC: 02H633Z Insertion of Infusion Device into Right Atrium, Percutaneous Approach (ICD-10-PCS; principal; 2016-06-28)
PROC: B244ZZZ Ultrasonography of Right Heart (ICD-10-PCS; 2016-06-28)
PROC: 0DH67UZ Insertion of Feeding Device into Stomach, Via Natural or Artificial Opening (ICD-10-PCS; 2016-07-01)
PROC: 3E0G76Z Introduction of Nutritional Substance into Upper GI, Via Natural or Artificial Opening (ICD-10-PCS; 2016-07-01)
DX: A41.9 Sepsis, unspecified organism (principal); I61.9 Nontraumatic intracerebral hemorrhage, unspecified; G93.41 Metabolic encephalopathy; N39.0 Urinary tract infection, site not specified; N17.9 Acute kidney failure, unspecified; C34.12 Malignant neoplasm of upper lobe, left bronchus or lung; J98.11 Atelectasis; J90 Pleural effusion, not elsewhere classified; I50.32 Chronic diastolic (congestive) heart failure; G20 Parkinson's disease; E66.9 Obesity, unspecified; I48.91 Unspecified atrial fibrillation; K21.9 Gastro-esophageal reflux disease without esophagitis; F32.9 Major depressive disorder, single episode, unspecified; B96.20 Unspecified Escherichia coli [E. coli] as the cause of diseases classified elsewhere; F02.80 Dementia in other diseases classified elsewhere, unspecified severity, without behavioral disturbance, psychotic disturbance, mood disturbance, and anxiety; E87.6 Hypokalemia; I48.0 Paroxysmal atrial fibrillation; D69.6 Thrombocytopenia, unspecified; I25.10 Atherosclerotic heart disease of native coronary artery without angina pectoris; I11.0 Hypertensive heart disease with heart failure; Z66 Do not resuscitate; Z68.38 Body mass index [BMI] 38.0-38.9, adult
CPT/HCPCS: 36415; 70450-TC; 70551-TC; 71010-TC; 71250-TC; 80048; 80053; 81003; 81015; 82436; 82550; 82570; 83605; 83735; 84100; 84133; 84300; 84443; 84484; 85025; 85027; 85610; 85730; 87040; 87086; 87186; 93005; 93010; 93306-TC; 93970-TC; 94010; 99285-25; J1644